=== PATIENT | male | born 1960 | race Two or more races ===

== ENCOUNTER 2020-11-01 21:07 | Inpatient (IN) | payer MEDICAID ==
[~2020-11-01] VITALS: Ht 170.2 cm; Wt 80.3 kg
[2020-11-01] MEDS ORDERED: NOREPINEPHRINE 8MG/250ML RTU 250 ML IV ONE (22:57)
[2020-11-01] MEDS: NOREPINEPHRINE 8 MG in IV NS 0.9% 242 ML IV PRN (23:00)
[2020-11-01 23:02] VITALS: BP 97/61
--- NOTE | 2020-11-01 23:06 | NUR ---
RECEIVED PT TRACH ON VENT FROM [employer]. PT HAS SHLY 6 TRACH. PLACED ON 840 VENT, AC 12, 450, 50%. ALARMS SET AND AUDIBLE. VENT PLUGGED INTO RED OUTLET. AMBU BAG AT BEDSIDE. CONTINUE TO MONITOR. Addendum: 11/01/20 at 2309 by BASSEM AGEE RT Amended: Links added.
[2020-11-01 23:15] VITALS: BP 125/72
[2020-11-01 23:30] VITALS: BP 110/71
[2020-11-01] MEDS ORDERED: Z GUARD REMEDY 2 OZ OINT TP PRN (23:30)
[2020-11-01] MEDS ORDERED: NOREPINEPHRINE 8 MG in IV NS 0.9% 242 ML IV PRN (23:30)
--- NOTE | 2020-11-01 23:30 | NUR ---
ELECTRICAL CONTRACTORPOLICY LOAN CALCULATOR NOTE: Received pt from [facility] via [employer] accompanied by 1 RN and 2 EMT. Transferred to bed and hooked up to monitors. Pt on SH#6 trach and mechanical ventilation AC 12, TV 450, O2 50%. Tolerating current settings well. No resp distress noted at this time. Pt obtunded, moves to localized pain. SR on tele monitor. Pt contracted w/ wounds. Wound pictures taken. GT site patent and clamped. Left internal jugular TLC in patent and flushed. Pt transferred from w/ Levo infusing at 0.1mcg/kg/min. Cedeno catheter in place, patent and draining urine via gravity. order desk caller, Ankush Ponce at bedside. No pain noted at this time. Med recon done by charge nurse. Safety measures in place. Will continue to monitor.
[2020-11-01 23:34] VITALS: BP 97/61
[2020-11-01 23:45] VITALS: BP 110/71
[2020-11-02] VITALS (96 sets, daily range): BP systolic 85–129; BP diastolic 49–82
--- NOTE | 2020-11-02 00:43 | NUR ---
TOW BAR DRIVER NOTE: No Ceftazadime available. Faxed order to RN Ornamental Ironworker Helper
[2020-11-02] MEDS ORDERED: MIDO10TA PEG (00:54)
[2020-11-02] MEDS ORDERED: ALBU2.5V38 NEB (00:54)
[2020-11-02] MEDS ORDERED: SODI650T PEG (00:54)
[2020-11-02] MEDS ORDERED: MUPI22OI2 TP (00:54)
[2020-11-02] MEDS ORDERED: LEVE500T9 PEG (00:54)
[2020-11-02] MEDS ORDERED: CINA30TA2 PEG (00:54)
[2020-11-02] MEDS ORDERED: FOLI0.8T2 PEG (00:54)
[2020-11-02] MEDS ORDERED: ZINC1CAP3 PEG (00:54)
[2020-11-02] MEDS ORDERED: CEFT1VIA55 IV (00:54)
[2020-11-02] MEDS ORDERED: [UNRECOGNIZED DRUG - CODE] IV/SQ (00:54)
[2020-11-02] MEDS ORDERED: GABA600T12 PEG (00:54)
[2020-11-02] MEDS ORDERED: ACET160E36 RC (00:54)
[2020-11-02] MEDS ORDERED: PANT40TA2 PEG (00:54)
[2020-11-02] MEDS ORDERED: LEVO112T5 GT (00:54)
[2020-11-02] MEDS ORDERED: ACET160E36 PEG (00:54)
[2020-11-02] MEDS ORDERED: MELA3TAB41 PEG (00:54)
[2020-11-02] MEDS ORDERED: MUPIROCIN OINT 2% 22 GM TUBE TP PRN (01:00)
[2020-11-02] MEDS ORDERED: ALBUTEROL FS 2.5 MG/3 ML VIAL.NEB NEB PRN (01:00)
[2020-11-02] MEDS ORDERED: CEFTAZIDIME 1 G VIAL ONE (01:20)
[2020-11-02] MEDS ORDERED: ACETAMINOPHEN 650 MG/20.3 ML UDC GT PRN (01:30)
[2020-11-02] MEDS: CEFTAZIDIME 1 G in IV D5W 50 ML IV SCH ×2 (01:35→20:17)
--- NOTE | 2020-11-02 01:40 | NUR ---
CONTINUOUS MINING MACHINE LODE MINER NOTE: RT titrated fio2 down to 40%. O2 stable, will cont to monitor.
[2020-11-02] MEDS ORDERED: VANCOMYCIN 1.25 GM in IV D5W 250 ML IV ONE (02:00)
[2020-11-02] MEDS ORDERED: VANCOMYCIN 1 GM in IV D5W 250 ML IV ONE (02:33)
[2020-11-02] MEDS ORDERED: VANCOMYCIN 1 GM VIAL ONE (02:40)
[2020-11-02 04:33] LABS: BASOPHILS # (AUTO) 0.1 /CMM (0.0-0.2); BASOPHILS % (AUTO) 0.3 % (0.0-2.0); HEMATOCRIT 25 % (39-51); HEMOGLOBIN 7.5 g/dL (13.5-17.5); LYMPHOCYTES # (AUTO) 1.5 /CMM (0.8-4.8); LYMPHOCYTES % (AUTO) 9.5 % (20.0-44.0); MEAN CORPUSCULAR HGB CONC 31 g/dl (31.0-36.0); MEAN CORPUSCULAR VOLUME 96 fL (80-96); MONOCYTES # (AUTO) 0.7 /CMM (0.1-1.30); MONOCYTES % (AUTO) 4.1 % (2.0-12.0); NEUTROPHILS # (AUTO) 12.2 /CMM (1.8-8.9); NEUTROPHILS % (AUTO) 77.1 % (43.0-81.0); PLATELET COUNT (AUTO) 256 /CMM (150-450); RED BLOOD CELL COUNT(AUTO) 2.57 MIL/uL (4.5-6.0); WHITE BLOOD COUNT (AUTO) 15.8 K/uL (4.3-11.0)
[2020-11-02 04:44] LABS: CALCIUM, SERUM 7.3 mg/dL (8.5-10.1); CREATININE 3.1 mg/dL (0.6-1.3); MAGNESIUM 2.4 mg/dL (1.8-2.4); POTASSIUM 3.5 mmol/L (3.5-5.1)
[2020-11-02 05:00] LABS: THYROID STIMULATING HORMONE 69.156 uIU/mL (0.358-3.74)
--- NOTE | 2020-11-02 05:14 | NUR ---
SUPERVISOR GREEN END DEPARTMENT NOTE: Sputum cx collected by RT. MRSA swab done. Both specimens sent to lab.
--- NOTE | 2020-11-02 06:06 | NUR ---
MANAGER COLLECTION NOTE: Urine collected and sent to lab
--- NOTE | 2020-11-02 07:10 | NUR ---
YEAST PUSHER Bedside report taken from [facility] nurse Ofelia SCHNEIDER. pt obtunded, eyes open, does not track or follow commands. pt w/d to pain in bue and ble. pt has trach to vent fio2 40 % tolerating well, spo2 100. pt has peg, npo at this time pending tf orders and nutrition consult. pt has calhoun, cloudy yellow urine, calhoun intact and draining. pt has wounds, noted. all lines traced. all drips verified. safety measures in place. will continue to monitor.
[2020-11-02] MEDS: LEVOTHYROXINE SODIUM 100 MCG TABLET GT SCH (07:42)
[2020-11-02] MEDS ORDERED: IV 1/2NS 1000 ML 1,000 ML IV PRN (08:00)
[2020-11-02] MEDS: ZINC SULFATE 220 MG CAPSULE GT SCH (08:10)
[2020-11-02] MEDS: VIT B CMPLX 3/FA/VIT C/BIOTIN 1 TAB TABLET PEG SCH (08:10)
[2020-11-02] MEDS: HEPARIN SODIUM, PORCINE 5000 UNITS/1 ML VIAL SQ SCH ×2 (08:11→20:24)
[2020-11-02] MEDS: CINACALCET HCL 30 MG TABLET GT SCH (08:12)
[2020-11-02] MEDS: LEVETIRACETAM SOL (5 ML) 100 MG/ML UDC GT SCH ×2 (08:12→20:17)
[2020-11-02] MEDS: PANTOPRAZOLE 40 MG/PACK PACK GT SCH (08:12)
[2020-11-02] MEDS: MIDODRINE HCL (5MG) 5 MG TABLET PEG SCH ×3 (08:12→16:25)
[2020-11-02] MEDS: GABAPENTIN 100 MG CAPSULE PEG SCH ×3 (08:13→16:25)
--- NOTE | 2020-11-02 08:45 | NUR ---
QUALITATIVE RESEARCHER US tech at bedside doing US of kidneys, difficult and unable to see d/t pt extreme contraction in ble. study completed with assistance.
[2020-11-02 08:56] LABS: BILIRUBIN,URINE NEGATIVE (NEGATIVE); COLOR,URINE YELLOW (YELLOW); LEUKOCYTE ESTERASE ,URINE LARGE (NEGATIVE); NITRITE, URINE NEGATIVE (NEGATIVE); PROTEIN,URINE TRACE mg/dl (NEGATIVE); UGLUCOSE NEGATIVE (NEGATIVE); UROBILINOGEN,URINE 0.2 EU/dL (0.2)
--- NOTE | 2020-11-02 09:00 | NUR ---
BI DATA ARCHITECT Skin Nurse at bedside assessing pt and wounds. new orders pending. calhoun irrigated using sterile technique per md order.
[2020-11-02 09:05] LABS: RBC,URINE F /HPF (0-2)
[2020-11-02 09:06] LABS: BACTERIA,URINE Few /HPF (None Seen); SQUAMOUS EPITHELIAL CELL,UR Rare /HPF (None Seen); WBC,URINE 51-80 /HPF (0-3)
--- NOTE | 2020-11-02 09:11 | NUR ---
WOUND CARE CONSULT: PT PRESENTS WITH INCONTINENCE ASSOCIATED SKIN DAMAGE OVER PREVIOUS SACRAL SCARRING. SCARRING ALSO NOTED TO BUTTOCKS, BACK,KNEES, HEELS AND ANKLES, ALL PRESENT ON ADMISSION. RECOMMENDATIONS MADE FOR SKIN PROTECTION. DISCUSSED WITH NURSING STAFF. 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 FIRST STEP LOW AIRLOSS MATTRESS IS ON ORDER. MD IN AGREEMENT WITH PLAN OF CARE. Addendum: 11/02/20 at 0913 by TASHA MATOS WNDNU Amended: Links added.
[2020-11-02 09:35] LABS: CREATININE, URINE 25.8 MG/DL (30.0-125.0); URINE TOTAL PROTEIN 51.6 mg/dL (0-11.9)
[2020-11-02 09:55] LABS: EOSINOPHIL,URINE Few
[2020-11-02 12:15] LABS: BASOPHILS # (AUTO) 0.1 /CMM (0.0-0.2); BASOPHILS % (AUTO) 0.5 % (0.0-2.0); EOSINOPHILS % (AUTO) 9.6 % (0.0-6.0); HEMATOCRIT 25 % (39-51); HEMOGLOBIN 7.7 g/dL (13.5-17.5); LYMPHOCYTES # (AUTO) 1.8 /CMM (0.8-4.8); LYMPHOCYTES % (AUTO) 12.3 % (20.0-44.0); MEAN CORPUSCULAR HGB CONC 31 g/dl (31.0-36.0); MEAN CORPUSCULAR VOLUME 93 fL (80-96); MONOCYTES # (AUTO) 0.7 /CMM (0.1-1.30); MONOCYTES % (AUTO) 5.1 % (2.0-12.0); NEUTROPHILS # (AUTO) 10.5 /CMM (1.8-8.9); NEUTROPHILS % (AUTO) 72.5 % (43.0-81.0); PLATELET COUNT (AUTO) 263 /CMM (150-450); RED BLOOD CELL COUNT(AUTO) 2.65 MIL/uL (4.5-6.0); WHITE BLOOD COUNT (AUTO) 14.5 K/uL (4.3-11.0)
[2020-11-02 12:38] LABS: CALCIUM, SERUM 7.4 mg/dL (8.5-10.1); CREATININE 2.9 mg/dL (0.6-1.3); POTASSIUM 3.6 mmol/L (3.5-5.1)
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
[2020-11-02] MEDS ORDERED: IV D5W 1,000 ML IV ONE (14:00)
[2020-11-02] MEDS: IV D5W 1,000 ML IV PRN (16:22)
--- NOTE | 2020-11-02 16:32 | NUR ---
ANESTHESIOLOGIST/PHYSICIAN Pt bathed and cleaned. linen change done. skin check done no new wounds noted. wound care done per md order. pt tolerated well. tube feeding started at 15ml/hr, 300 ml h20 flush initiated per md order. pt tolerated well. vitals stable. will continue to monitor.
--- NOTE | 2020-11-02 16:54 | NUR ---
MOP MAN Bedside report given to pm nurse Marcos SCHNEIDER. pt asleep, easily arousable. pt has trach to vent, tolerating well. pt clean and dry. all lines traced. all drips verified. vitals stable. safety measures in place. no signs of acute distress at this time.
[2020-11-02 18:29] LABS: CALCIUM, SERUM 7.3 mg/dL (8.5-10.1); CREATININE 2.9 mg/dL (0.6-1.3); POTASSIUM 3.5 mmol/L (3.5-5.1)
--- NOTE | 2020-11-02 18:32 | NUR ---
POSTAL SERVICE WINDOW CLERK NOTES Patient in bed resting comfortably in moderate high back rest, Obtunded and contracted, trach to vent, tolerating current setting sating 100%, IV access on Left IJ, On levophed @0.04 mcg/kg/min, D5W running @100ml/hr. On Gtube feeding twocal hn liquid @15ml/hr, tolerating well, Cedeno catheter in place draining via gravity with clear yellow output, safety measures in place, bed in lowest locked position with side rails up x2. call light within reach, will endorse to car shifter nurse for meryl.
[2020-11-02] MEDS: TWOCAL HN 1,000 ML LIQUID GT PRN (19:00)
--- NOTE | 2020-11-02 19:11 | NUR ---
RECEIVED PT ON BED AWAKE OPEN EYES BUT NOT TRACKING OR FOLLOWING ANY COMMANDS ON TRACH/VENT SETTING PER MD FIO2 40% SPO2 98%, PT ON TELE MONITOR WITH READING SINUS BRANDON 60'S, PT HAVE LEFT IJ 3L CATHETER WITH ONGOING D5W AT 100ML/HR AND LEVOPHED @ 0.04 MCG/KG/MIN INFUSING WELL DRESSING DRY CLEAN AND INTACT, PT HAVE ZARATE CATHETER WITH YELLOW URINE DRAINING VIA GRAVITY, PT HAVE GTUBE ON PLACE, RESIDUAL 45ML, PLACEMENT WAS CHECKED AND VERIFIED, WITH FEEDING OF TWOCAL HN @ 15ML/HR TOLERATING WELL, BED AT LOWEST POSITION AND LOCKED SIDE RAILS UP X2 WILL CONT TO MONITOR
--- NOTE | 2020-11-02 20:25 | NUR ---
REPORTED TO DEDRA CASTILLO NP THAT PT HGB IS 7.7 HCT OF 25, AND PT HAVE AN HEPARIN ORDER Q12H AND STARTED THIS MORNING, HE SAID TO GIVE IT IF THERE IS NO SIGN OF BLEEDING, NOTED AND CARRIED OUT
[2020-11-02] MEDS: LINEZOLID RTU BAG 600 MG in PREMIX 1 EA IV SCH (21:37)
[2020-11-02] MEDS: MEROPENEM 500 MG in IV NS 0.9% 50 ML IV SCH (21:37)
[2020-11-03] VITALS (83 sets, daily range): BP systolic 84–128; BP diastolic 44–88
--- NOTE | 2020-11-03 00:31 | NUR ---
PT ON BED SLEEPING INTERMITTENTLY STILL ON TRACH/VENT SETTING PER MD FIO2 40% SPO2 99% NOS IGN OF ANY DISTRESS, STILL ON LEVOPHED 0.04 MCG/KG/MIN SBP MAINTAIN ON 100'S WILL CONT TO MONITOR
[2020-11-03] MEDS ORDERED: VANCOMYCIN 0.75 GM in IV D5W 250 ML IV SCH (03:00)
[2020-11-03] MEDS: IV D5W 1,000 ML IV PRN ×3 (03:00→22:30)
[2020-11-03] MEDS: NOREPINEPHRINE 8 MG in IV NS 0.9% 242 ML IV PRN (03:00)
[2020-11-03 04:14] LABS: BASOPHILS # (AUTO) 0.1 /CMM (0.0-0.2); BASOPHILS % (AUTO) 0.6 % (0.0-2.0); EOSINOPHILS % (AUTO) 7.6 % (0.0-6.0); HEMATOCRIT 24 % (39-51); HEMOGLOBIN 7.4 g/dL (13.5-17.5); LYMPHOCYTES # (AUTO) 1.9 /CMM (0.8-4.8); LYMPHOCYTES % (AUTO) 13.8 % (20.0-44.0); MEAN CORPUSCULAR HGB CONC 31 g/dl (31.0-36.0); MEAN CORPUSCULAR VOLUME 94 fL (80-96); MONOCYTES # (AUTO) 0.8 /CMM (0.1-1.30); MONOCYTES % (AUTO) 5.6 % (2.0-12.0); NEUTROPHILS # (AUTO) 9.9 /CMM (1.8-8.9); NEUTROPHILS % (AUTO) 72.4 % (43.0-81.0); PLATELET COUNT (AUTO) 240 /CMM (150-450); RED BLOOD CELL COUNT(AUTO) 2.53 MIL/uL (4.5-6.0); WHITE BLOOD COUNT (AUTO) 13.6 K/uL (4.3-11.0)
[2020-11-03 04:27] LABS: ALBUMIN 2.1 g/dL (3.4-5.0); BILIRUBIN,TOTAL 0.3 mg/dL (0.2-1.0); CALCIUM, SERUM 7.3 mg/dL (8.5-10.1); CREATININE 2.9 mg/dL (0.6-1.3); PHOSPHORUS 3.6 mg/dL (2.5-4.9); POTASSIUM 3.2 mmol/L (3.5-5.1); TOTAL PROTEIN, SERUM 5.7 g/dL (6.4-8.2)
--- NOTE | 2020-11-03 05:24 | NUR ---
REPORTED TO LION CASTILLO TOOL DISPATCHER ABOUT THE CRITICAL VALUE OF Na-157 Cl-125 BUN-96 WITH NO NEW ORDER
--- NOTE | 2020-11-03 06:46 | NUR ---
PT ON BED ASLEEP EASY TO WAKE UP BUT STILL NOT TRACKING OR FOLLOW COMMANDS, STILL ON TRACH/VENT SETTING PER MD FIO2 40% SPO2 100% NO RESPIRATORY DISTRESS NOTED NO PAIN NOTED, ALL NEEDS ATTENDED STILL NEEDED LEVOPHED @ 0.04 MCG/KG/MIN SBP @ 100'S, NO SIGNIFICANT CHANGES ON CONDITION NOTED BED ON LOWEST POSITION AND LOCKED SIDE RAILS UP WILL ENDORSED TO AM SHIFT NURSE
--- NOTE | 2020-11-03 07:29 | NUR ---
RN OPENING NOTES RECEIVED PATIENT AWAKE BUT EYES NOT TRACKING AND DOESN'T FOLLOW COMMANDS. TRACH CONNECTED TO MECHVENT WITH SETTINGS AC 12 TV 470 FIO2 40% PEEP 0. SR 84 ON TELE MONITOR. G TUBE TO TWO APOLONIA AT 30 ML/HR. LEFT IJ CENTRAL CATHETER WITH D5W AT 100ML/HR, AND LEVO AT 0.04 MCG/KG/HR. ZARATE DRAINING TO GRAVITY. SAFETY CHECKS IN PLACE. WILL CONTINUE TO MONITOR.
[2020-11-03] MEDS: LEVOTHYROXINE SODIUM 100 MCG TABLET GT SCH (07:56)
[2020-11-03] MEDS: POTASSIUM CL. PREMIX PERIPHER. 50 ML IV SCH ×4 (07:56→10:26)
[2020-11-03] MEDS: GABAPENTIN 100 MG CAPSULE PEG SCH ×3 (08:31→16:14)
[2020-11-03] MEDS: LEVETIRACETAM SOL (5 ML) 100 MG/ML UDC GT SCH ×2 (08:32→21:16)
[2020-11-03] MEDS: MIDODRINE HCL (5MG) 5 MG TABLET PEG SCH ×3 (08:32→16:14)
[2020-11-03] MEDS: ZINC SULFATE 220 MG CAPSULE GT SCH (08:32)
[2020-11-03] MEDS: PANTOPRAZOLE 40 MG/PACK PACK GT SCH (08:32)
[2020-11-03] MEDS: VIT B CMPLX 3/FA/VIT C/BIOTIN 1 TAB TABLET PEG SCH (08:32)
[2020-11-03] MEDS: CINACALCET HCL 30 MG TABLET GT SCH (08:32)
[2020-11-03] MEDS: MEROPENEM 500 MG in IV NS 0.9% 50 ML IV SCH ×2 (08:33→21:16)
[2020-11-03] MEDS: HEPARIN SODIUM, PORCINE 5000 UNITS/1 ML VIAL SQ SCH ×2 (08:38→21:19)
[2020-11-03] MEDS: LINEZOLID RTU BAG 600 MG in PREMIX 1 EA IV SCH ×2 (09:25→21:16)
--- NOTE | 2020-11-03 11:30 | NUR ---
RN NOTE BLOOD CULTURE AND URINE CULTURE RESULTS REQUESTED FROM [facility] VIA [facility].
[2020-11-03] MEDS: TWOCAL HN 1,000 ML LIQUID GT PRN (17:33)
--- NOTE | 2020-11-03 19:05 | NUR ---
RECEIVED PT ON BED AWAKE OPEN EYES BUT NOT TRACKING OR FOLLOWING ANY COMMANDS ON TRACH/VENT SETTING PER MD FIO2 40% SPO2 98%, PT ON TELE MONITOR WITH READING SINUS RHYTHM 70'S, PT HAVE LEFT IJ 3L CATHETER WITH ONGOING D5W AT 100ML/HR INFUSING WELL DRESSING DRY CLEAN AND INTACT, PT HAVE ZARATE CATHETER WITH YELLOW URINE DRAINING VIA GRAVITY, PT HAVE GTUBE ON PLACE, RESIDUAL 45ML, PLACEMENT WAS CHECKED AND VERIFIED, WITH FEEDING OF TWOCAL HN @ 35ML/HR TOLERATING WELL, BED AT LOWEST POSITION AND LOCKED SIDE RAILS UP X2 WILL CONT TO MONITOR
--- NOTE | 2020-11-03 19:11 | NUR ---
RN CLOSING NOTES NO SIGNIFICANT CHANGE IN PATIENT'S CONDITION. EYES STILL NOT TRACKING, NON VERBAL AND DOESN'T FOLLOW COMMANDS. TRACH CONNECTED TO MECHVENT WITH SAME SETTINGS OF AC 12 TV 470 FIO2 40% PEEP 0. SR 77 ON TELE MONITOR. G TUBE TO TWO APOLONIA AT 35 ML/HR. LEFT IJ CENTRAL CATHETER WITH D5W AT 100ML/HR. ZARATE DRAINED 1,350MLS. FLEXI-SEAL INSERTED DUE TO LOOSE STOOLS. SAFETY CHECKS IN PLACE. ENDORSED TO NIGHT RN FOR CONTINUITY OF CARE.
--- NOTE | 2020-11-03 20:20 | NUR ---
RECEIVED PT FROM [facility] BED PT IS UNCONSCIOUS NOT RESPONDING TO ANY STIMULI, PUPIL IS REACTIVE TO LIGHT ON O2 VIA NC 2L SPO2 100% HR 90S, HOOKED TO MONITOR WITH READING SINUS RHYTHM BP ON NORMAL RANGE, NO TREMORS OR JERKING NOTED, TEETH CLENCHING NOTED, PT HAVE RAC #20 PATENT AND FLUSHED, DR PAULA CAME AND SEE PATIENT, AT BEDSIDE,BED ON LOWEST POSITION AND LOCKED SIDE RAILS UP X2 CALL LIGHT WITHIN REACH WILL CONT TO MONITOR Addendum: 11/04/20 at 0640 by MELISSA ORDONEZ RN WRONG PATIENT
--- NOTE | 2020-11-03 21:15 | NUR ---
PT IS STILL UNCONSCIOUS V/S SIGNS STABLE SPO2 100% ON 2L O2 VIA NC, SEND PATIENT TO RADIOLOGY FOR CT SCAN WITH RN AT BEDSIDE TO MONITOR Addendum: 11/04/20 at 0641 by MELISSA ORDONEZ RN WRONG PATIENT
--- NOTE | 2020-11-03 21:25 | NUR ---
PT GAIN CONSCIOUSNESS, SHE GET AWAKE AA/O X4 VERBALIZED, PER PT SHE HEAR THE CONVERSATION BETWEEN THE DOCTORS AND THE STAFF AT BEDSIDE, BUT SHE CANNOT MOVE OR OPEN HER EYES, V/S SIGNS IS STABLE WITH SPO2 100% HR 89, BP 107/67, WILL CONTINUE TO MONITOR Addendum: 11/04/20 at 0639 by MELISSA ORDONEZ RN WRONG PATIENT
[2020-11-04] VITALS (83 sets, daily range): BP systolic 81–137; BP diastolic 38–81
[2020-11-04 04:25] LABS: BASOPHILS # (AUTO) 0.1 /CMM (0.0-0.2); BASOPHILS % (AUTO) 0.6 % (0.0-2.0); EOSINOPHILS % (AUTO) 6.6 % (0.0-6.0); HEMATOCRIT 21 % (39-51); LYMPHOCYTES # (AUTO) 1.6 /CMM (0.8-4.8); LYMPHOCYTES % (AUTO) 11.7 % (20.0-44.0); MEAN CORPUSCULAR HGB CONC 32 g/dl (31.0-36.0); MEAN CORPUSCULAR VOLUME 92 fL (80-96); MONOCYTES # (AUTO) 0.7 /CMM (0.1-1.30); MONOCYTES % (AUTO) 5.6 % (2.0-12.0); NEUTROPHILS % (AUTO) 75.5 % (43.0-81.0); PLATELET COUNT (AUTO) 219 /CMM (150-450); RED BLOOD CELL COUNT(AUTO) 2.31 MIL/uL (4.5-6.0); WHITE BLOOD COUNT (AUTO) 13.3 K/uL (4.3-11.0)
[2020-11-04 04:47] LABS: CALCIUM, SERUM 6.7 mg/dL (8.5-10.1); CREATININE 2.5 mg/dL (0.6-1.3); MAGNESIUM 1.8 mg/dL (1.8-2.4); PHOSPHORUS 4.1 mg/dL (2.5-4.9); POTASSIUM 3.7 mmol/L (3.5-5.1)
[2020-11-04 04:55] LABS: HEMOGLOBIN 6.8 g/dL (13.5-17.5)
[2020-11-04 05:07] LABS: PTH, INTACT 18 pg/mL (15-65)
--- NOTE | 2020-11-04 05:10 | NUR ---
RN NOTES RECEIVED A CALL FROM LAB HGB 6.8 AND HCT 21. INFORMED DEPUTY CHIEF EXECUTIVE ANNA SEYMOUR WAITING FOR THE ORDER
[2020-11-04] MEDS: NOREPINEPHRINE 8 MG in IV NS 0.9% 242 ML IV PRN (05:20)
--- NOTE | 2020-11-04 05:20 | NUR ---
RN NOTES RE-STARTED LEVOPHED DUE TO CONTINUOUSLY LOW SBP TO <90 MMHG. LEVO WILL TITRATE PROTOCOL ORDER
[2020-11-04 05:48] LABS: BAND % (MANUAL) 3 % (0.0-5.0); EOSINOPHILS % (MANUAL) 7 % (0-4); LYMPHOCYTES % (MANUAL) 4 % (16-48); METAMYELOCYTES % 2 % (0-0); MYELOCYTES % 1 % (0-0); NEUTROPHILS % (MANUAL) 82 (42-76); REACTIVE LYMPHOCYTES 1 % (0-0)
--- NOTE | 2020-11-04 06:54 | NUR ---
RN NOTES PATIENT REMAINED ON TRACH AND VENT SETTING THE SAME. NO SIGNIFICANT CHANGES EXCEPT HYPOTENSION. MEDICINE TOELRATED WELL. CONTINUE ON LEVOPHED WILL TITRATED PROTOCOL ORDER. INCONTINENT CARE PROVIDED, FLEXISEAL IN PLACED. WITH GOOD URINE OUTPUT.. KEPT PT CLEAN AND COMFORTABLE IN BED. WILL ENDORSED CONTINUITY OF CARE TO AM NURSE.
--- NOTE | 2020-11-04 07:00 | NUR ---
RN NOTES ENDORSED TO AM SHIFT TO FOLLOW UP HGB 6.8 TO MD .
--- NOTE | 2020-11-04 07:12 | NUR ---
RN OPENING NOTES RECEIVED PATIENT WITH EYES OPEN BUT NOT FOLLOWING COMMANDS. TRACH CONNECTED TO MECENT WITH SETTINGS AC 12 TV 470 FIO2 40% PEEP 0. SR 80 ON TELE MONITOR. LEFT IJ CENTRAL LINE WITH D5W 100ML/HR AND LEVO AT 0.04MCG/KG/HR. ZARATE AND FLEXISEAL DRAINING BY GRAVITY. SAFETY CHECKS IN PLACE. WILL CONTINUE TO MONITOR.
[2020-11-04 08:06] LABS: COMPLEMENT C3, SERUM 95 mg/dL (82-167); COMPLEMENT C4, SERUM 34 mg/dL (12-38)
[2020-11-04] MEDS: LEVETIRACETAM SOL (5 ML) 100 MG/ML UDC GT SCH ×2 (08:23→21:34)
[2020-11-04] MEDS: CINACALCET HCL 30 MG TABLET GT SCH (08:24)
[2020-11-04] MEDS: LEVOTHYROXINE SODIUM 100 MCG TABLET GT SCH (08:24)
[2020-11-04] MEDS: ZINC SULFATE 220 MG CAPSULE GT SCH (08:24)
[2020-11-04] MEDS: VIT B CMPLX 3/FA/VIT C/BIOTIN 1 TAB TABLET PEG SCH (08:24)
[2020-11-04] MEDS: MIDODRINE HCL (5MG) 5 MG TABLET PEG SCH ×4 (08:24→17:05)
[2020-11-04] MEDS: PANTOPRAZOLE 40 MG/PACK PACK GT SCH (08:24)
[2020-11-04] MEDS: GABAPENTIN 100 MG CAPSULE PEG SCH ×3 (08:24→17:04)
[2020-11-04] MEDS: HEPARIN SODIUM, PORCINE 5000 UNITS/1 ML VIAL SQ SCH ×2 (08:25→21:38)
[2020-11-04] MEDS: MEROPENEM 500 MG in IV NS 0.9% 50 ML IV SCH ×2 (08:25→21:37)
[2020-11-04] MEDS: IV D5W 1,000 ML IV PRN (08:57)
[2020-11-04] MEDS: LINEZOLID RTU BAG 600 MG in PREMIX 1 EA IV SCH ×2 (09:16→21:37)
--- NOTE | 2020-11-04 09:30 | NUR ---
RN NOTE 0900 DOSE OF MIDODRINE WAS ADMINISTERED BUT UNABLE TO BE EDITED AT [facility] TO SAY ITS GIVEN.
[2020-11-04 11:08] LABS: *ANA ANTI-CENTROMERE B AB <0.2 AI (0.0-0.9); *ANA ANTI-DNA(DS) AB, QN 9 IU/mL (0-9); *ANA ANTI-JO-1 <0.2 AI (0.0-0.9); *ANA ANTICHROMATIN ANTIBODY <0.2 AI (0.0-0.9); *ANA RNP ANTIBODIES <0.2 AI (0.0-0.9); *ANA SJOGREN'S ANTI-SS-A <0.2 AI (0.0-0.9); *ANA SJOGREN'S ANTI-SS-B <0.2 AI (0.0-0.9); *ANAANTI-SCLERODERMA-70 AB <0.2 AI (0.0-0.9); *ANASMITH AB <0.2 AI (0.0-0.9); *SPE ALBUMIN 2.6 g/dL (2.9-4.4); *SPE ALPHA-1-GLOBULIN 0.2 g/dL (0.0-0.4); *SPE ALPHA-2-GLOBULIN 0.8 g/dL (0.4-1.0); *SPE BETA GLOBULIN 0.6 g/dL (0.7-1.3); *SPE GLOBULIN, TOTAL 2.5 g/dL (2.2-3.9); *SPE M-SPIKE Not Observed g/dL (Not Observed); *SPEGAMMA GLOBULIN 0.9 g/dL (0.4-1.8)
[2020-11-04] MEDS: SOD FERRIC GLUC 125 MG in IV NS 0.9% 100 ML IV SCH (15:32)
--- NOTE | 2020-11-04 16:00 | NUR ---
RN NOTE PATIENT RECEIVED ONE UNIT OF PRBC. NO ADVERSE REACTIONS NOTED DURING THE TRANSFUSION.
--- NOTE | 2020-11-04 16:30 | NUR ---
RN NOTE NG FLUSHES REDUCED TO 200ML Q6H, D/C ZARATE IRRIGATION, AND IVF CHANGED TO N/S.
[2020-11-04] MEDS: IV NS 0.9% 1,000 ML IV PRN (17:06)
[2020-11-04] MEDS: TWOCAL HN 1,000 ML LIQUID GT PRN (17:07)
--- NOTE | 2020-11-04 18:42 | NUR ---
RN CLOSING NOTES PATIENT REMAINS NON COMMUNICATIVE. TRACH CONNECTED TO MECENT WITH SAME SETTINGS AC 12 TV 470 FIO2 40% PEEP 0. SR 78 ON TELE MONITOR. LEFT IJ CENTRAL LINE WITH NS 100ML/HR AND LEVO AT 0.04MCG/KG/HR. ZARATE DRAINED 2600MLS AND FLEXISEAL DRAINED 200MLS THIS SHIFT. SAFETY CHECKS IN PLACE. WILL ENDORSE TO NIGHT RN FOR CONTINUITY OF CARE..
--- NOTE | 2020-11-04 19:30 | NUR ---
RN NOTES RECEIVED PATIENT EYES OPEN , NON VERBAL. NO T FOLLOWING COMMAND. WITH TRACH AND VENT TOLERATED WELL. SR ON MONITOR. HR ON 70S. WITH GTF 2 APOLONIA HN @ 35 ML.HR WITH H20 FLUSHED 200 ML/HR TOLERATED WELL. PATENCY CHECK WITH GURGLING SOUND. IV SITE ON LIJ TLC INTACT AND PATENT WITH NS @ 100 ML.HR AND LEVOPHED @ 0.04 MCG/KG/MIN WILL TITRATED PROTOCOL ORDER. PATIENT HAS ZARATE CATH AND FLEXISEAL DRAINIGN WELL VIA GRAVITY. KEPT PT CLEAN AND COMFORTABLE IN BED. WILL CONTINUE TO MONITOR.
[2020-11-05] VITALS (85 sets, daily range): BP systolic 89–127; BP diastolic 55–90
[2020-11-05] MEDS: IV NS 0.9% 1,000 ML IV PRN (03:26)
[2020-11-05] MEDS ORDERED: IV NS 0.9% 250 ML IV PRN (04:00)
[2020-11-05 04:24] LABS: BASOPHILS # (AUTO) 0.1 /CMM (0.0-0.2); BASOPHILS % (AUTO) 0.5 % (0.0-2.0); EOSINOPHILS % (AUTO) 5.2 % (0.0-6.0); HEMATOCRIT 26 % (39-51); HEMOGLOBIN 8.4 g/dL (13.5-17.5); LYMPHOCYTES # (AUTO) 1.5 /CMM (0.8-4.8); LYMPHOCYTES % (AUTO) 10.5 % (20.0-44.0); MEAN CORPUSCULAR HGB CONC 33 g/dl (31.0-36.0); MEAN CORPUSCULAR VOLUME 92 fL (80-96); MONOCYTES # (AUTO) 0.9 /CMM (0.1-1.30); MONOCYTES % (AUTO) 6.1 % (2.0-12.0); NEUTROPHILS # (AUTO) 11.5 /CMM (1.8-8.9); NEUTROPHILS % (AUTO) 77.7 % (43.0-81.0); PLATELET COUNT (AUTO) 256 /CMM (150-450); RED BLOOD CELL COUNT(AUTO) 2.81 MIL/uL (4.5-6.0); WHITE BLOOD COUNT (AUTO) 14.7 K/uL (4.3-11.0)
[2020-11-05 04:44] LABS: CALCIUM, SERUM 6.8 mg/dL (8.5-10.1); CREATININE 2.4 mg/dL (0.6-1.3); MAGNESIUM 1.9 mg/dL (1.8-2.4); PHOSPHORUS 3.8 mg/dL (2.5-4.9); POTASSIUM 3.7 mmol/L (3.5-5.1)
[2020-11-05] MEDS: NOREPINEPHRINE 8 MG in IV NS 0.9% 242 ML IV PRN (05:02)
[2020-11-05 05:26] LABS: BAND % (MANUAL) 2 % (0.0-5.0); EOSINOPHILS % (MANUAL) 4 % (0-4); LYMPHOCYTES % (MANUAL) 9 % (16-48); METAMYELOCYTES % 1 % (0-0); MONOCYTES % (MANUAL) 1 % (0-11.0); MYELOCYTES % 1 % (0-0); NEUTROPHILS % (MANUAL) 82 (42-76)
--- NOTE | 2020-11-05 07:00 | NUR ---
RN NOTES NO SIGNIFICANT CHANGES THROUGHOUT THE SHIFT. TACH AND VENT SETTING TOLERATED WELL. AFEBRILE. VSS. NSR ON MONITOR. IVF ONGOING CONTINUE ON LEVOPHED ON LOWER DOSE 0.02 MCG/KG/MIN. IV SITE INTACT AND PATENT. GTF PATENT. ZARATE CATH AND FLEXISEAL INTACT AND PATENT. KEPT PT CLEAN AND COMFORTABLE IN BED. ENDORSE CONTINUITY OF CARE TO AM NURSE.
[2020-11-05] MEDS: LEVOTHYROXINE SODIUM 100 MCG TABLET GT SCH (08:30)
--- NOTE | 2020-11-05 08:43 | NUR ---
curriculum writer. received the pt obtunded. trach to vent connected. contracted. trach aneudy#6,ac 12,tv 470,fio2 40%sat 98%. no acute distress noted. radiology practitioner assistant showing nsrgt feeding tolerated well. fc patent. urine draining. flexa seal intact. hob elevated. will continue to monitor vitals.
[2020-11-05] MEDS: MEROPENEM 500 MG in IV NS 0.9% 50 ML IV SCH ×2 (09:43→21:10)
[2020-11-05] MEDS: GABAPENTIN 100 MG CAPSULE PEG SCH ×3 (09:50→17:00)
[2020-11-05] MEDS: CINACALCET HCL 30 MG TABLET GT SCH (09:50)
[2020-11-05] MEDS: LINEZOLID RTU BAG 600 MG in PREMIX 1 EA IV SCH ×2 (09:50→21:45)
[2020-11-05] MEDS: LEVETIRACETAM SOL (5 ML) 100 MG/ML UDC GT SCH ×2 (09:50→21:46)
[2020-11-05] MEDS: HEPARIN SODIUM, PORCINE 5000 UNITS/1 ML VIAL SQ SCH ×2 (09:52→21:53)
[2020-11-05] MEDS: MIDODRINE HCL (5MG) 5 MG TABLET PEG SCH ×3 (09:53→17:00)
[2020-11-05] MEDS: VIT B CMPLX 3/FA/VIT C/BIOTIN 1 TAB TABLET PEG SCH (09:55)
[2020-11-05] MEDS: PANTOPRAZOLE 40 MG/PACK PACK GT SCH (09:55)
[2020-11-05] MEDS: ZINC SULFATE 220 MG CAPSULE GT SCH (09:57)
[2020-11-05] MEDS: HYDROCORTISONE SOD SUCCINATE 100 MG/2 ML VIAL IV SCH ×2 (13:12→21:45)
[2020-11-05] MEDS: SOD FERRIC GLUC 125 MG in IV NS 0.9% 100 ML IV SCH (15:06)
--- NOTE | 2020-11-05 18:50 | NUR ---
RN CLOSING NOTES NO SIGNIFICANT CHANGES THROUGHOUT THE SHIFT. VENT SETTING TOLERATED WELL. NSR ON TELE MONITOR. ON LEVOPHED @0.01MCG/KG/MIN. IV SITES INTACT AND PATENT. ZARATE CATH IN PLACE AND FLEXISEAL REINSERTED. KEPT CLEAN AND COMFORTABLE. ALL DUE MEDS GIVEN. WILL ENDORSE TO NIGHT RN FOR PREET.
--- NOTE | 2020-11-05 19:47 | NUR ---
RT Pt received orally intubated on mechanical ventilation with noted settings. Vent is plugged into red outlet with BVM by bedside. Equal bilateral breath sounds and chest rise noted. No SOB or respiratory distress noted. Addendum: 11/05/20 at 2035 by CHELY ZELAYA RT Amended: Links added.
[2020-11-05] MEDS: TWOCAL HN 1,000 ML LIQUID GT PRN (22:00)
[2020-11-06] VITALS (40 sets, daily range): BP systolic 91–138; BP diastolic 54–83
[2020-11-06] MEDS: HYDROCORTISONE SOD SUCCINATE 100 MG/2 ML VIAL IV SCH ×3 (04:44→21:23)
[2020-11-06 05:00] LABS: BASOPHILS % (AUTO) 0.1 % (0.0-2.0); EOSINOPHILS % (AUTO) 0.3 % (0.0-6.0); HEMATOCRIT 27 % (39-51); HEMOGLOBIN 8.5 g/dL (13.5-17.5); LYMPHOCYTES # (AUTO) 1.3 /CMM (0.8-4.8); LYMPHOCYTES % (AUTO) 6.6 % (20.0-44.0); MEAN CORPUSCULAR HGB CONC 32 g/dl (31.0-36.0); MEAN CORPUSCULAR VOLUME 92 fL (80-96); MONOCYTES # (AUTO) 0.4 /CMM (0.1-1.30); MONOCYTES % (AUTO) 2.2 % (2.0-12.0); NEUTROPHILS # (AUTO) 18.2 /CMM (1.8-8.9); NEUTROPHILS % (AUTO) 90.8 % (43.0-81.0); PLATELET COUNT (AUTO) 241 /CMM (150-450); WHITE BLOOD COUNT (AUTO) 20.1 K/uL (4.3-11.0)
[2020-11-06 05:12] LABS: CALCIUM, SERUM 6.6 mg/dL (8.5-10.1); CREATININE 2.1 mg/dL (0.6-1.3); MAGNESIUM 1.8 mg/dL (1.8-2.4); PHOSPHORUS 3.4 mg/dL (2.5-4.9); POTASSIUM 4.1 mmol/L (3.5-5.1)
[2020-11-06] MEDS: LEVOTHYROXINE SODIUM 100 MCG TABLET GT SCH (07:50)
[2020-11-06] MEDS: VIT B CMPLX 3/FA/VIT C/BIOTIN 1 TAB TABLET PEG SCH (08:11)
[2020-11-06] MEDS: LEVETIRACETAM SOL (5 ML) 100 MG/ML UDC GT SCH ×2 (08:11→21:34)
[2020-11-06] MEDS: CINACALCET HCL 30 MG TABLET GT SCH (08:11)
[2020-11-06] MEDS: GABAPENTIN 100 MG CAPSULE PEG SCH ×3 (08:11→16:34)
[2020-11-06] MEDS: PANTOPRAZOLE 40 MG/PACK PACK GT SCH (08:11)
[2020-11-06] MEDS: MIDODRINE HCL (5MG) 5 MG TABLET PEG SCH ×3 (08:11→16:34)
[2020-11-06] MEDS: ZINC SULFATE 220 MG CAPSULE GT SCH (08:11)
[2020-11-06] MEDS: HEPARIN SODIUM, PORCINE 5000 UNITS/1 ML VIAL SQ SCH ×2 (08:14→21:35)
[2020-11-06] MEDS: IV 1/2NS 1000 ML 1,000 ML IV PRN ×2 (08:23→21:46)
[2020-11-06] MEDS: MEROPENEM 500 MG in IV NS 0.9% 50 ML IV SCH ×2 (08:26→21:33)
[2020-11-06] MEDS: LINEZOLID RTU BAG 600 MG in PREMIX 1 EA IV SCH ×2 (08:55→21:33)
--- NOTE | 2020-11-06 10:29 | NUR ---
RN NOTE 0715: Recieved patient with trache to vent, tolerated settings, no respiratory distress noted at this time. Nored with foul odor secretions. With GT intact, feeding tolerated.SR on the monitor. Flexiseal intact, noted with mile leakage. LIJ TLC intact, on IVF infusing as ordered. Remained off pressors. 0900: S/E by Dr. Lyons, with order of labs in am. 1000: No any significant changes noted at this time. Kept clean, warm and dry.
[2020-11-06] MEDS: SOD FERRIC GLUC 125 MG in IV NS 0.9% 100 ML IV SCH (14:33)
--- NOTE | 2020-11-06 18:07 | NUR ---
RN NOTE No any significant changes noted. Remained afebrile. SBP >90's. Kept clean, warm and dry. Needs attended. Still noted with leakage on flexiseal at times, cleaned patient as tolerated. Will endorse to next shift.
--- NOTE | 2020-11-06 18:07 | NUR ---
RT END OF THE SHIFT REPORT, PT. 59 Y OLD MALE TRACH SHILEY # 6 ON VENT WITH NOTED SETTINGS, ALARMS ARE SET AND FUNCTIONAL, EQUAL CHEST RISE NOTED, VENT PLUGGED INTO RED OUTLET, AMBU BAG REMAIN AT THE BEDSIDE. B/S RHONCHI AND SUCTIONED FOR LARGE AMOUNT OF STARKS SECRETIONS, HME CHANGED, STOCK LETTERER DONE, PT. ABELARDO. T/O DAY AND NO DISTRESS NOTED. NO ABG PER DR. ALEX PT. REMAIN STABLE AND REPORT WILL PASS TO PM SHIFT. Addendum: 11/06/20 at 1810 by IZABELA BEAVERS RT Amended: Links added.
--- NOTE | 2020-11-06 20:03 | NUR ---
PT TRANSFERRED TO TELE.
--- NOTE | 2020-11-06 20:05 | NUR ---
CURTAIN STITCHER. TRANSFER THE PT TO ROOM 115, BED #1, REPORT GIVEN TO Db. PT VITALS STABLE.
[2020-11-07] VITALS: BP 134/78
[2020-11-07] MEDS: TWOCAL HN 1,000 ML LIQUID GT PRN (00:58)
[2020-11-07 04:00] VITALS: BP 127/70
[2020-11-07] MEDS: HYDROCORTISONE SOD SUCCINATE 100 MG/2 ML VIAL IV SCH ×3 (05:33→20:55)
[2020-11-07 06:33] LABS: BASOPHILS % (AUTO) 0.1 % (0.0-2.0); EOSINOPHILS % (AUTO) 0.1 % (0.0-6.0); HEMATOCRIT 28 % (39-51); HEMOGLOBIN 8.7 g/dL (13.5-17.5); LYMPHOCYTES # (AUTO) 2.1 /CMM (0.8-4.8); MEAN CORPUSCULAR HGB CONC 32 g/dl (31.0-36.0); MEAN CORPUSCULAR VOLUME 95 fL (80-96); MONOCYTES # (AUTO) 0.9 /CMM (0.1-1.30); MONOCYTES % (AUTO) 3.4 % (2.0-12.0); NEUTROPHILS # (AUTO) 23.7 /CMM (1.8-8.9); NEUTROPHILS % (AUTO) 88.4 % (43.0-81.0); PLATELET COUNT (AUTO) 277 /CMM (150-450); RED BLOOD CELL COUNT(AUTO) 2.91 MIL/uL (4.5-6.0); WHITE BLOOD COUNT (AUTO) 26.8 K/uL (4.3-11.0)
[2020-11-07 06:57] LABS: CALCIUM, SERUM 6.6 mg/dL (8.5-10.1); MAGNESIUM 1.9 mg/dL (1.8-2.4); PHOSPHORUS 3.6 mg/dL (2.5-4.9)
--- NOTE | 2020-11-07 07:35 | NUR ---
RN OPENING NOTES RECEIVED PATIENT AWAKE BUT NON VERBAL. TRACH TO VENT WITH SETTINGS AC 12 FIO2 30% PEEP 0. SR ON TELEMETRY. LEFT IJ WITH 1/2 NS AT 50ML/HR. G TUBE WITH 2 APOLONIA AT 35ML/HR. ZARATE AND FLEXI-SEAL DRAINING TO GRAVITY.SAFETY CHECKS IN PLACE. WILL CONTINUE TO MONITOR.
--- NOTE | 2020-11-07 07:49 | NUR ---
RN NOTE STATUS CHANGED TO TELE.
[2020-11-07 08:00] VITALS: BP_SYST 102; BP_SYST 148; BP_DIAS 48; BP_DIAS 65
[2020-11-07] MEDS: PANTOPRAZOLE 40 MG/PACK PACK GT SCH (08:15)
[2020-11-07] MEDS: LEVETIRACETAM SOL (5 ML) 100 MG/ML UDC GT SCH ×2 (08:16→20:55)
[2020-11-07] MEDS: LEVOTHYROXINE SODIUM 100 MCG TABLET GT SCH (08:16)
[2020-11-07] MEDS: GABAPENTIN 100 MG CAPSULE PEG SCH ×3 (08:16→16:06)
[2020-11-07] MEDS: VIT B CMPLX 3/FA/VIT C/BIOTIN 1 TAB TABLET PEG SCH (08:17)
[2020-11-07] MEDS: ZINC SULFATE 220 MG CAPSULE GT SCH (08:17)
[2020-11-07] MEDS: CINACALCET HCL 30 MG TABLET GT SCH (08:17)
[2020-11-07] MEDS: MIDODRINE HCL (5MG) 5 MG TABLET PEG SCH ×3 (08:18→16:06)
[2020-11-07] MEDS: HEPARIN SODIUM, PORCINE 5000 UNITS/1 ML VIAL SQ SCH ×2 (08:20→20:59)
[2020-11-07] MEDS: MEROPENEM 500 MG in IV NS 0.9% 50 ML IV SCH ×2 (08:21→20:54)
[2020-11-07] MEDS: LINEZOLID 600 MG TABLET PO SCH ×2 (09:05→20:55)
[2020-11-07 12:00] VITALS: BP 115/63
[2020-11-07] MEDS: SOD FERRIC GLUC 125 MG in IV NS 0.9% 100 ML IV SCH (13:33)
[2020-11-07 16:00] VITALS: BP 109/64
[2020-11-07] MEDS: IV 1/2NS 1000 ML 1,000 ML IV PRN (16:07)
--- NOTE | 2020-11-07 17:36 | NUR ---
RT END OF THE SHIFT REPORT, PT. 59 Y OLD MALE TRACH LISA # 6 ON VENT WITH NOTED SETTINGS, ALARMS ARE SET AND FUNCTIONAL, EQUAL CHEST RISE NOTED, VENT PLUGGED INTO RED OUTLET, AMBU BAG REMAIN AT THE BEDSIDE. B/S RALES POST SUCTIONED FOR LARGE AMOUNT OF STARKS SECRETIONS, HME CHANGED, VALVE INSERTER DONE, PT. ABELARDO. T/O DAY AND NO CHANGES NOR DISTRESS NOTED. REPORT WILL BE PASS TO BASKET BRAIDER. Addendum: 11/07/20 at 1745 by IZABELA BEAVERS RT Amended: Links added.
--- NOTE | 2020-11-07 18:19 | NUR ---
RN CLOSING NOTES PATIENT'S CONDITION REMAINS UNCHANGED. TRACH TO VENT WITH SAME SETTINGS AC 12 FIO2 30% PEEP 0. SR 65 ON TELEMETRY. LEFT IJ WITH 1/2 NS AT 50ML/HR. TOLERATING 2 APOLONIA AT 35ML/HR VIA G TUBE. ZARATE DRAINED 650MLS AND AND FLEXI-SEAL DRAINED 100MLS WITH SOME LEAKING NOTED PROBABLY DUE TO POSITION OF CONTRACTURED LEGS .SAFETY CHECKS IN PLACE. WILL ENDORSE TO NIGHT RN FOR CONTINUITY OF CARE.
[2020-11-07 20:00] VITALS: BP 125/63
--- NOTE | 2020-11-07 20:00 | NUR ---
RN NOTE RECEIVED PT IN BED ,PT DOES NOT FOLLOW COMMANDS ,PT IS ON VENT VIA TRACH SATING 100%, PT HAS TF 2 APOLONIA HN AT 35 ML/H. SAFETY MEASURES IN PLACE.
[2020-11-08] VITALS: BP 134/71
[2020-11-08 04:00] VITALS: BP 128/79
[2020-11-08] MEDS: HYDROCORTISONE SOD SUCCINATE 100 MG/2 ML VIAL IV SCH ×3 (05:08→20:33)
[2020-11-08 05:50] LABS: BASOPHILS % (AUTO) 0.1 % (0.0-2.0); EOSINOPHILS % (AUTO) 0.1 % (0.0-6.0); HEMATOCRIT 26 % (39-51); HEMOGLOBIN 8.2 g/dL (13.5-17.5); LYMPHOCYTES # (AUTO) 1.8 /CMM (0.8-4.8); LYMPHOCYTES % (AUTO) 8.3 % (20.0-44.0); MEAN CORPUSCULAR HGB CONC 32 g/dl (31.0-36.0); MEAN CORPUSCULAR VOLUME 93 fL (80-96); MONOCYTES # (AUTO) 0.8 /CMM (0.1-1.30); MONOCYTES % (AUTO) 3.7 % (2.0-12.0); NEUTROPHILS % (AUTO) 87.8 % (43.0-81.0); PLATELET COUNT (AUTO) 256 /CMM (150-450); RED BLOOD CELL COUNT(AUTO) 2.77 MIL/uL (4.5-6.0); WHITE BLOOD COUNT (AUTO) 21.6 K/uL (4.3-11.0)
[2020-11-08 06:18] LABS: CALCIUM, SERUM 6.7 mg/dL (8.5-10.1); MAGNESIUM 1.9 mg/dL (1.8-2.4); PHOSPHORUS 3.7 mg/dL (2.5-4.9); POTASSIUM 3.9 mmol/L (3.5-5.1)
--- NOTE | 2020-11-08 07:20 | NUR ---
RN REPORT GIVEN TO ONCOMING SHIFT FOR PREET.
--- NOTE | 2020-11-08 07:30 | NUR ---
RN OPENING NOTE NONVERBAL VENT TRACH PT OPENS EYES TO VERBAL STIMULI ON VENT SETTINGS PER MD ORDER OF TRACH 6, AC 12, TV 470, FIO2 30%, PEEP 0, WITH NO SIGNS OF RESP DISTRESS OR SOB, BREATHING EVEN AND UNLABORED, SPO2 100%. PT HAS LT IJ ACCESS, 1 OF 2 LUMEN PATENT, FLUSHED AND INTACT, RUNNING 1/2 NS @ 50ML/HR. PT HAS ZARATE CATH DRAINING CLEAR YELLOW URINE TO GRAVITY, PATENT AND INTACT. PT RECTAL TUBE DRAINING TO GRAVITY WELL, INTACT, CURRENTLY 100CC. PT HAS SACRAL WOUND COVERED IN MEPILEX, CLEAN AND DRY. PT GTUBE AUSCULTATED FOR POSITIVE PLACEMENT, FLUSHED AND INTACT, RUNNING TWO APOLONIA HN @ 35ML/HR, NO RESIDUALS NOTED. ALL PT SAFETY PRECAUTIONS IN PLACE, WILL CONT TO MONITOR
[2020-11-08 08:00] VITALS: BP 136/74
[2020-11-08] MEDS: CINACALCET HCL 30 MG TABLET GT SCH (08:34)
[2020-11-08] MEDS: LEVETIRACETAM SOL (5 ML) 100 MG/ML UDC GT SCH ×2 (08:34→20:32)
[2020-11-08] MEDS: HEPARIN SODIUM, PORCINE 5000 UNITS/1 ML VIAL SQ SCH ×2 (08:35→20:35)
[2020-11-08] MEDS: MEROPENEM 500 MG in IV NS 0.9% 50 ML IV SCH ×2 (08:35→20:06)
[2020-11-08] MEDS: LEVOTHYROXINE SODIUM 100 MCG TABLET GT SCH (08:35)
[2020-11-08] MEDS: ZINC SULFATE 220 MG CAPSULE GT SCH (08:36)
[2020-11-08] MEDS: GABAPENTIN 100 MG CAPSULE PEG SCH ×3 (08:36→17:36)
[2020-11-08] MEDS: LINEZOLID 600 MG TABLET PO SCH ×2 (08:36→20:32)
[2020-11-08] MEDS: VIT B CMPLX 3/FA/VIT C/BIOTIN 1 TAB TABLET PEG SCH (08:36)
[2020-11-08] MEDS: PANTOPRAZOLE 40 MG/PACK PACK GT SCH (08:36)
[2020-11-08] MEDS: MIDODRINE HCL (5MG) 5 MG TABLET PEG SCH ×3 (08:37→17:36)
[2020-11-08 09:53] LABS: BAND % (MANUAL) 3 % (0.0-5.0); LYMPHOCYTES % (MANUAL) 6 % (16-48); MONOCYTES % (MANUAL) 4 % (0-11.0); NEUTROPHILS % (MANUAL) 87 (42-76)
[2020-11-08] MEDS: TWOCAL HN 1,000 ML LIQUID GT PRN (11:53)
[2020-11-08 12:00] VITALS: BP 115/60
[2020-11-08] MEDS: IV 1/2NS 1000 ML 1,000 ML IV PRN (13:36)
[2020-11-08] MEDS: SOD FERRIC GLUC 125 MG in IV NS 0.9% 100 ML IV SCH (13:52)
[2020-11-08 16:00] VITALS: BP 93/52
--- NOTE | 2020-11-08 19:20 | NUR ---
RN CLOSING NOTE NO CHANGES TO PT DURING SHIFT. PT ON SAME VENT SETTINGS PER MD ORDER. NO SIGNS OF RESP DISTRESS OR SOB, SPO2 100%. ALL PT SAFETY PRECAUTIONS IN PLACE, PREET ENDORSED TO PASSENGER AGENT RN
--- NOTE | 2020-11-08 19:50 | NUR ---
RN OPENING NOTE, PATIENT IN BED ON MECHANICAL VENTILATOR, NONVERBAL OPENS EYES, NO SIGNS OF RESP DISTRESS OR SOB, NSR IN TELE MONITOR, LT IJ ACCESS, 1 OF 2 LUMEN PATENT, FLUSHED AND INTACT, RUNNING 1/2 NS @ 50ML/HR. ZARATE CATH IN PLACE, DRAINING CLEAR YELLOW URINE TO GRAVITY, PATENTCY INTACT, RECTAL TUBE IN [PLACE, GT IN PLACE, TWO APOLONIA HN @ 35ML/HR, INFUSING WELL NO RESIDUALS NOTED, ALL SAFETY PRECAUTIONS IN PLACE, HOB ELEVATED AT ALL TIMES, WILL CONT TO MONITOR CLOSELY.
[2020-11-08 20:00] VITALS: BP 131/74
[2020-11-09] VITALS: BP 139/74
[2020-11-09 04:00] VITALS: BP 111/62
[2020-11-09 06:30] LABS: BASOPHILS % (AUTO) 0.1 % (0.0-2.0); EOSINOPHILS % (AUTO) 0.1 % (0.0-6.0); HEMATOCRIT 27 % (39-51); HEMOGLOBIN 8.8 g/dL (13.5-17.5); LYMPHOCYTES # (AUTO) 1.6 /CMM (0.8-4.8); LYMPHOCYTES % (AUTO) 11.2 % (20.0-44.0); MEAN CORPUSCULAR HGB CONC 33 g/dl (31.0-36.0); MEAN CORPUSCULAR VOLUME 93 fL (80-96); MONOCYTES # (AUTO) 0.8 /CMM (0.1-1.30); MONOCYTES % (AUTO) 5.7 % (2.0-12.0); NEUTROPHILS # (AUTO) 12.2 /CMM (1.8-8.9); NEUTROPHILS % (AUTO) 82.9 % (43.0-81.0); PLATELET COUNT (AUTO) 222 /CMM (150-450); RED BLOOD CELL COUNT(AUTO) 2.92 MIL/uL (4.5-6.0); WHITE BLOOD COUNT (AUTO) 14.7 K/uL (4.3-11.0)
--- NOTE | 2020-11-09 06:37 | NUR ---
RN OPENING NOTE, PATIENT ON MECHANICAL VENTILATOR, NONVERBAL ASLEEP, AROUSABLE TO TACTILE STIMULI, NO SIGNS OF RESP DISTRESS OR SOB, NS//SB IN TELE MONITOR THROUGHOUT THE NIGHT, NO SIGNIFICANT CHANGE IN CONDITION DURING THE NIGHT, ALL SAFETY PRECAUTIONS IN PLACE, HOB ELEVATED AT ALL TIMES, WILL ENDORSE CONTINUITY OF CARE TO ONCOMING NURSE. Addendum: 11/09/20 at 0656 by LAURA ESPOSITO RN CLOSING NOTE
[2020-11-09 06:39] LABS: CALCIUM, SERUM 6.5 mg/dL (8.5-10.1); CREATININE 1.8 mg/dL (0.6-1.3); POTASSIUM 3.8 mmol/L (3.5-5.1)
--- NOTE | 2020-11-09 07:30 | NUR ---
RN OPENING NOTES PATIENT PRESENT IN BED, ON [facility] RODRIGO, TOLERATING SETTINGS WELL, NO ACUTE DISTRESS OR SOB NOTED, SPO2 98% ON O2 SAT MONITOR, NSR WITH HR OF 65 RIGHT NOW, ZARATE CATH IN PLACE, RECTAL TUBE IN PLACE, CIG ON L SIDE INTACT AND PATENT, FLUSHED, DRESSING INTACT, BOTH PATENT AND INTACT, SAFETY MEASLES IN PLACE,, BED LOCKED,M IN LOWEST POSITION, WILL CONT TO MONITOR
[2020-11-09 08:00] VITALS: BP 113/66
[2020-11-09] MEDS: HEPARIN SODIUM, PORCINE 5000 UNITS/1 ML VIAL SQ SCH (08:32)
[2020-11-09] MEDS: LEVETIRACETAM SOL (5 ML) 100 MG/ML UDC GT SCH (08:34)
[2020-11-09] MEDS: HYDROCORTISONE SOD SUCCINATE 100 MG/2 ML VIAL IV SCH (08:34)
[2020-11-09] MEDS: VIT B CMPLX 3/FA/VIT C/BIOTIN 1 TAB TABLET PEG SCH (08:35)
[2020-11-09] MEDS: GABAPENTIN 100 MG CAPSULE PEG SCH ×3 (08:35→17:32)
[2020-11-09] MEDS: LINEZOLID 600 MG TABLET PO SCH (08:35)
[2020-11-09] MEDS: LEVOTHYROXINE SODIUM 100 MCG TABLET GT SCH (08:35)
[2020-11-09] MEDS: MIDODRINE HCL (5MG) 5 MG TABLET PEG SCH ×3 (08:35→17:32)
[2020-11-09] MEDS: ZINC SULFATE 220 MG CAPSULE GT SCH (08:35)
[2020-11-09] MEDS: PANTOPRAZOLE 40 MG/PACK PACK GT SCH (08:35)
[2020-11-09] MEDS: CINACALCET HCL 30 MG TABLET GT SCH (08:35)
[2020-11-09] MEDS: MEROPENEM 500 MG in IV NS 0.9% 50 ML IV SCH (08:41)
[2020-11-09] MEDS: TWOCAL HN 1,000 ML LIQUID GT PRN (10:43)
[2020-11-09] MEDS: IV 1/2NS 1000 ML 1,000 ML IV PRN (10:52)
[2020-11-09 12:00] VITALS: BP 101/56
--- NOTE | 2020-11-09 16:05 | NUR ---
Report given to Micheline SCHNEIDER at [phone]
[2020-11-09 17:32] VITALS: BP 131/53
--- NOTE | 2020-11-09 18:16 | NUR ---
Discharged with [facility] [address] [facility], name and destination confirmed, ID band removed, report givent to facility
== END 2020-11-09 18:06 | DRG 720 ==
LOC: ICU 22:40 → TELE1 11-06 19:40 → TELE-TD 11-06 22:22 → TELE1 11-07 07:44
PROVIDERS: ADMIT Nurse Practitioner Family
PROC: 5A1955Z Respiratory Ventilation, Greater than 96 Consecutive Hours (ICD-10-PCS; principal; 2020-11-01)
PROC: 30233N1 Transfusion of Nonautologous Red Blood Cells into Peripheral Vein, Percutaneous Approach (ICD-10-PCS; 2020-11-04)
DX: A41.81 Sepsis due to Enterococcus (principal); N17.0 Acute kidney failure with tubular necrosis; R65.21 Severe sepsis with septic shock; Z99.11 Dependence on respirator [ventilator] status; G93.1 Anoxic brain damage, not elsewhere classified; E44.0 Moderate protein-calorie malnutrition; J96.10 Chronic respiratory failure, unspecified whether with hypoxia or hypercapnia; J18.9 Pneumonia, unspecified organism; G93.41 Metabolic encephalopathy; Z86.73 Personal history of transient ischemic attack (TIA), and cerebral infarction without residual deficits; D64.9 Anemia, unspecified; E03.9 Hypothyroidism, unspecified; E27.40 Unspecified adrenocortical insufficiency; E86.0 Dehydration; E87.0 Hyperosmolality and hypernatremia; E87.2 Acidosis; Z20.822 Contact with and (suspected) exposure to COVID-19; Z93.0 Tracheostomy status; Z93.1 Gastrostomy status; N39.0 Urinary tract infection, site not specified; N18.9 Chronic kidney disease, unspecified; E88.09 Other disorders of plasma-protein metabolism, not elsewhere classified; Z68.27 Body mass index [BMI] 27.0-27.9, adult; Z90.5 Acquired absence of kidney; Z85.850 Personal history of malignant neoplasm of thyroid; E87.8 Other disorders of electrolyte and fluid balance, not elsewhere classified; Z91.81 History of falling; M24.571 Contracture, right ankle; M24.572 Contracture, left ankle; B95.7 Other staphylococcus as the cause of diseases classified elsewhere; R19.7 Diarrhea, unspecified; Z85.528 Personal history of other malignant neoplasm of kidney; Z85.51 Personal history of malignant neoplasm of bladder; J04.10 Acute tracheitis without obstruction
CPT/HCPCS: 31720; 36415; 71045-TC; 76770-TC; 80048-TC; 80053-TC; 80061-TC; 81001; 82533; 82550-TC; 82570-TC; 83540-TC; 83735-TC; 83970; 84100-TC; 84155; 84155-TC; 84165; 84300-TC; 84439-TC; 84443-TC; 85025-TC; 85652-TC; 86225; 86235; 86706; 86803; 86850-TC; 87040-TC; 87070-TC; 87081-TC; 87086-TC; 87340; 94002-TC; 94003-TC; 94640-TC; 94760-TC; 94799-TC; 99082-TC; A4216; A4623; A7526; G0378; J0713; J1644; J1720; J1953; J2020; J2185; J2916; J3370; J3480; J3490; J7030; J7050; J7060; J7070; P9016

== ENCOUNTER 2021-03-30 15:41 | Inpatient (IN) | payer MEDICAID ==
[~2021-03-30] VITALS: Ht 167.6 cm; Wt 83.9 kg
[~2021-03-30 15:41] MED LIST: ACET160E36 PEG; ACET160E36 RC; ALBU2.5V38 NEB; CEFT1VIA55 IV; CINA30TA2 PEG; FOLI0.8T2 PEG; GABA600T12 PEG; LEVE500T9 PEG; LEVO112T5 GT; MELA3TAB41 PEG; MIDO10TA PEG; MUPI22OI2 TP; PANT40TA2 PEG; SODI650T PEG; ZINC1CAP3 PEG; [UNRECOGNIZED DRUG - CODE] IV/SQ
--- NOTE | 2021-03-30 15:45 | NUR ---
TO ER BED 5, [id number] FRM [facility] FOR NOTED LOW BLOOD PRESSURE, NON VERBAL, CONNECTED TO MONITOR, AWITING MD CALHOUN
--- NOTE | 2021-03-30 15:58 | NUR ---
rt note patient received via ems from [facility] facility. vent settings per facility charted. trach patent ans secure. pt in no resp. distress. vent alarms on and audible. bvm bedside. vent plugged in red outlet. will continue to monitor. Addendum: 03/30/21 at 1601 by HAYDE BROWN RT Amended: Links added.
[2021-03-30] MEDS ORDERED: ALBU2.5V38 IH (16:07)
[2021-03-30] MEDS ORDERED: NUTR100037 GT (16:07)
[2021-03-30] MEDS ORDERED: LEVE500T9 GT (16:07)
[2021-03-30] MEDS ORDERED: SODI650T GT (16:07)
[2021-03-30] MEDS ORDERED: LEVO125T8 GT (16:07)
[2021-03-30] MEDS ORDERED: MIDO10TA GT (16:07)
[2021-03-30] MEDS ORDERED: COLL30OI TP (16:07)
[2021-03-30] MEDS ORDERED: PANT40SU2 GT (16:07)
[2021-03-30] MEDS ORDERED: BLOO-668 IN (16:07)
[2021-03-30] MEDS ORDERED: CHLO473M5 MM (16:07)
[2021-03-30] MEDS ORDERED: FOLI0.8T2 GT (16:07)
[2021-03-30] MEDS ORDERED: THIA100T88 GT (16:07)
[2021-03-30] MEDS ORDERED: THIA100T70 GT (16:07)
[2021-03-30] MEDS ORDERED: VANCOMYCIN 1 GM in IV D5W 250 ML IV ONE (16:30)
[2021-03-30] MEDS ORDERED: IV NS 0.9% 1,000 ML BAG IV ONE (16:30)
[2021-03-30] MEDS ORDERED: CEFTAZIDIME 1 G in IV D5W 50 ML IV ONE (16:30)
--- NOTE | 2021-03-30 16:58 | NUR ---
OPHTHALMIC TECH AT BEDSIDE
[2021-03-30 16:59] LABS: BASOPHILS # (AUTO) 0.2 K/uL (0.0-0.2); BASOPHILS % (AUTO) 1.4 % (0.0-2.0); HEMATOCRIT 29 % (39-51); LYMPHOCYTES # (AUTO) 1.6 K/uL (0.8-4.8); LYMPHOCYTES % (AUTO) 11.3 % (20.0-44.0); MEAN CORPUSCULAR HGB CONC 32 g/dl (31.0-36.0); MEAN CORPUSCULAR VOLUME 95 fL (80-96); MONOCYTES # (AUTO) 0.6 K/uL (0.1-1.30); MONOCYTES % (AUTO) 4.4 % (2.0-12.0); NEUTROPHILS # (AUTO) 10.9 K/uL (1.8-8.9); NEUTROPHILS % (AUTO) 74.9 % (43.0-81.0); PLATELET COUNT (AUTO) 608 K/uL (150-450); RED BLOOD CELL COUNT(AUTO) 2.98 MIL/uL (4.5-6.0); WHITE BLOOD COUNT (AUTO) 14.6 K/uL (4.3-11.0)
--- NOTE | 2021-03-30 17:06 | NUR ---
CALLED NURSING SUP FOR [facility] BED.
[2021-03-30 17:11] LABS: CALCIUM, SERUM 8.4 mg/dL (8.5-10.1); CARBON DIOXIDE 22 mmol/L (21-32); CHLORIDE 117 mmol/L (98-107); CREATININE 3.2 mg/dL (0.6-1.3); GLUCOSE 99 mg/dL (74-106); POTASSIUM 3.9 mmol/L (3.5-5.1); SODIUM SERUM 152 mmol/L (136-145)
[2021-03-30 17:16] LABS: UREA NITROGEN, BLOOD 80 mg/dL (7-18)
[2021-03-30 17:24] LABS: ALANINE AMINOTRANSFERASE 38 U/L (12-78); ALBUMIN 2.6 g/dL (3.4-5.0); ALKALINE PHOSPHATASE 160 U/L (46-116); ASPARTATE AMINOTRANSFERASE 37 U/L (15-37); BILIRUBIN,DIRECT 0.1 mg/dL (0.0-0.2); BILIRUBIN,TOTAL 0.2 mg/dL (0.2-1.0); TOTAL PROTEIN, SERUM 6.7 g/dL (6.4-8.2)
--- NOTE | 2021-03-30 17:25 | NUR ---
URINE COLLECTED AND SENT TO LAB
[2021-03-30 17:32] LABS: BILIRUBIN,URINE Negative (NEGATIVE); COLOR,URINE YELLOW (YELLOW); LEUKOCYTE ESTERASE ,URINE Large (NEGATIVE); NITRITE, URINE Negative (NEGATIVE); PROTEIN,URINE 100 mg/dl (NEGATIVE); UGLUCOSE Negative (NEGATIVE); UROBILINOGEN,URINE 0.2 EU/dL (0.2)
[2021-03-30 17:34] LABS: BACTERIA,URINE 3+ /HPF (None Seen); PH,URINE >8.5 (5.0-8.0); SQUAMOUS EPITHELIAL CELL,UR Few /HPF (None Seen); WBC,URINE 21-50 /HPF (0-3)
--- NOTE | 2021-03-30 17:40 | NUR ---
PAGED [facility].
--- NOTE | 2021-03-30 18:00 | NUR ---
[facility] FOR [facility].
--- NOTE | 2021-03-30 18:43 | NUR ---
[facility] WHERE PATIENT STAYS CALLED AND GIVEN UPDATE
--- NOTE | 2021-03-30 19:55 | NUR ---
BED 118-2
--- NOTE | 2021-03-30 20:23 | NUR ---
report given to brent landaverde
--- NOTE | 2021-03-30 20:24 | NUR ---
transferring pt to 118 per acls
--- NOTE | 2021-03-30 20:35 | NUR ---
RT NOTE PT TRANSFERRED TO ROOM 118. VENT IS PLUGGED INTO RED OUTLET. BMV AND SPARE TRACH @ HOB. ALARMS ARE SET AND AUDIBLE. PT SX'D W NO ADVERSE REACTIONS. NO RESP DISTRESS NOTED @ THIS TIME.
[2021-03-30 21:16] VITALS: BP 75/45
[2021-03-30] MEDS ORDERED: IV NS 0.9% 1,000 ML IV ONE (22:00)
[2021-03-30] MEDS ORDERED: COLLAGENASE 30 GM TUBE TP SCH (22:00)
[2021-03-30] MEDS ORDERED: MUPIROCIN OINT 2% 22 GM TUBE TP PRN (22:00)
[2021-03-30] MEDS ORDERED: ALBUTEROL FS 2.5 MG/3 ML VIAL.NEB NEB PRN (22:00)
[2021-03-30] MEDS: MIDODRINE HCL (5MG) 5 MG TABLET GT SCH (22:15)
[2021-03-30] MEDS ORDERED: ONDANSETRON HCL/PF 4 MG/2 ML VIAL IVP PRN (22:30)
[2021-03-30] MEDS ORDERED: Z GUARD REMEDY 2 OZ OINT TP PRN (22:30)
[2021-03-30] MEDS ORDERED: MEROPENEM 1 G in IV NS 0.9% 100 ML IV ONE (23:30)
[2021-03-30] MEDS ORDERED: MEROPENEM 1 G VIAL IV ONE (23:32)
[2021-03-30] MEDS: HYDROCORTISONE SOD SUCCINATE 100 MG/2 ML VIAL IV SCH (23:41)
[2021-03-30] MEDS: ENOXAPARIN SODIUM 30 MG/0.3 ML DISP.SYRIN SQ SCH (23:44)
[2021-03-30] MEDS: FLUDROCORTISONE 0.1 MG TABLET GT SCH (23:45)
[2021-03-30] MEDS: IV 1/2NS 1000 ML 1,000 ML IV PRN (23:45)
[2021-03-31] VITALS (94 sets, daily range): BP systolic 65–123; BP diastolic 33–80
--- NOTE | 2021-03-31 00:28 | NUR ---
0028 LION XAVIER MADE AWARE OF PATIENT'S PERSISTENT LOW BP IN THE 70S, CHECKED WITH DIFFERENT MACHINES, WITH ORDER TO TRANSFER PATIENT TO ICU TO START ON LEVOPHED FOR BP SUPPORT. ORDER NOTED AND CARRIED OUT.
--- NOTE | 2021-03-31 00:32 | NUR ---
TELE-TD/SHOTGUN SHELL ASSEMBLY MACHINE ADJUSTER PT BP IS 79/48 AFTER BOLUS. JUANY CONTRACT ADMIN NOTIFIED ORDERS TO TRANSFER TO ICU AND START LEVO. WILL CONTINUE TO MONITOR.
--- NOTE | 2021-03-31 00:54 | NUR ---
RN/ICU-RECEIVED PT. FROM TD VIA BED PER ACLS PROTOCOL, ACCOMPANIED BY STAFF. TRANSFERRED FOR HYPOTENSION W/ DIAGNOSIS:SEPSIS/UTI. ROUTINE ICU ADMISSION CARE INITIATED.PT. IS OBTUNDED,ON THE VENT VIA TRACH SHILEY #6 W/ INITIAL VENT SETTINGS:AC-12,VT-400,FIO2-30%,PEEP+5. SATS.100%, EKG SR-64/MIN.,BP-68/41.PEG INTACT.AFEBRILE,T-97.7/AXILLARY.NO S/S OF PAIN PER [facility] PAIN SCALE ASSESSMENT.PT.IS A FULL CODE. ON CONTACT/AIRBORNE,PRECAUTIONS IN EFFECT. Addendum: 03/31/21 at 0613 by OMEGA ALEMAN RN RN/ICU-PT. WITH MULTI SKIN PROBLEMS. REFER TO THE SKIN PROBLEM ASSESSMENT AND WOUND PHOTOS FOR DETAILS.
--- NOTE | 2021-03-31 01:01 | NUR ---
RT NOTE PT TRANSFERRED TO ICU ROOM 258. VENT IS PLUGGED INTO RED OUTLET. BMV AND SPARE TRACH @ HOB. ALARMS ARE SET AND AUDIBLE NO RESP DISTRESS NOTED @ THIS TIME. WILL CONTINUE TO MONITOR T/O SHIFT
[2021-03-31] MEDS ORDERED: NOREPINEPHRINE 8MG/250ML RTU 250 ML IV ONE ×2 (01:04→15:39)
--- NOTE | 2021-03-31 01:04 | NUR ---
TELE-TD/CHILD STUDY TEAM DIRECTOR PT TRANSFERRED TO ICU VIA ACLS PROTOCOL. OMEGA SCHNEIDER RECEIVED REPORT. I CALLED PTS TO INFORM HER OF TRANSFER TO ICU. DIANNA HADDAD [phone]. NO ANSWER LEFT VOICEMAIL.
[2021-03-31] MEDS: NOREPINEPHRINE 8 MG in IV NS 0.9% 242 ML IV PRN ×3 (01:10→15:42)
--- NOTE | 2021-03-31 01:15 | NUR ---
RN/ICU- LEVOPHED DRIP INITIATED AT 0.1 MCG/KG/MIN PER PROTOCOL TITRATED TO KEEP SBP>90. BP-68/41,HR-65.
--- NOTE | 2021-03-31 01:30 | NUR ---
RN/ICU-FOR PICC LINE INSERTION PER [facility] ORDER. WILL REATTEMPT TO CALL DIANNA FOR CONSENT IN AM.
[2021-03-31 04:44] LABS: BASOPHILS # (AUTO) 0.3 K/uL (0.0-0.2); BASOPHILS % (AUTO) 1.1 % (0.0-2.0); EOSINOPHILS % (AUTO) 5.5 % (0.0-6.0); HEMATOCRIT 31 % (39-51); HEMOGLOBIN 9.7 g/dL (13.5-17.5); LYMPHOCYTES # (AUTO) 2.9 K/uL (0.8-4.8); LYMPHOCYTES % (AUTO) 11.7 % (20.0-44.0); MEAN CORPUSCULAR HGB CONC 32 g/dl (31.0-36.0); MEAN CORPUSCULAR VOLUME 96 fL (80-96); MONOCYTES # (AUTO) 0.7 K/uL (0.1-1.30); MONOCYTES % (AUTO) 2.8 % (2.0-12.0); NEUTROPHILS # (AUTO) 19.6 K/uL (1.8-8.9); NEUTROPHILS % (AUTO) 78.9 % (43.0-81.0); RED BLOOD CELL COUNT(AUTO) 3.21 MIL/uL (4.5-6.0); WHITE BLOOD COUNT (AUTO) 24.8 K/uL (4.3-11.0)
[2021-03-31 04:57] LABS: ALBUMIN 2.5 g/dL (3.4-5.0); BILIRUBIN,TOTAL 0.4 mg/dL (0.2-1.0); CREATININE 2.7 mg/dL (0.6-1.3); MAGNESIUM 2.9 mg/dL (1.8-2.4); PHOSPHORUS 3.6 mg/dL (2.5-4.9); POTASSIUM 4.3 mmol/L (3.5-5.1); TOTAL PROTEIN, SERUM 6.9 g/dL (6.4-8.2)
[2021-03-31] MEDS ORDERED: MEROPENEM 1 G in IV NS 0.9% 100 ML IV SCH (05:00)
[2021-03-31 05:02] LABS: THYROID STIMULATING HORMONE 97.784 uIU/mL (0.358-3.74)
[2021-03-31 05:07] LABS: CALCIUM, SERUM 7.8 mg/dL (8.5-10.1)
[2021-03-31] MEDS: HYDROCORTISONE SOD SUCCINATE 100 MG/2 ML VIAL IV SCH ×3 (05:37→20:23)
--- NOTE | 2021-03-31 06:14 | NUR ---
RN/ICU-EYES OPEN, NON-INTERACTIVE, ON THE VENT PER TRACH,ON AC MODE, SATS-100%. REMAINS ON LEVOPHED DRIP AT 0.25 MCG/KG/MIN. LATEST BP83/55, HR-56, WILL CONTINUE TO TITRATE PER PROTOCOL TO KEEP SBP>90. NO S/S OF PAIN USING FLACC SCALE.AFEBRILE.WILL START TUBE FEEDS ONCE MORE STABLE, ASPIRATION PRECAUTIONS IN EFFECT.REMAINS ON CONTACT/A[place]NE PRECAUTIONS.
--- NOTE | 2021-03-31 06:45 | NUR ---
RN/ICU-ATTEMPTED TO CALL [facility] FOR PICC LINE CONSENT BUT TO NO AVAIL. WILL ENDORSE TO DAYSHIFT. PHONE NO.-[phone].
[2021-03-31 06:50] LABS: EOSINOPHILS % (MANUAL) 4 % (0-4); LYMPHOCYTES % (MANUAL) 10 % (16-48); MONOCYTES % (MANUAL) 6 % (0-11.0); NEUTROPHILS % (MANUAL) 80 (42-76)
--- NOTE | 2021-03-31 07:00 | NUR ---
RN NOTES RECEIVED PT ON BED, TRACH/ VENT DEPENDENT, TOLERATING VENT SETTING WELL, O2 SAT WNL, PT RESPONDS TO PAINFUL STIMULI , CIERRA. UPPER ARM AND LOWER EXTREMISTS ARE CONTRACTED ,ON TELE SB HR IN 50'S , ZARATE DRAINING TO GRAVITY, IV SITES CLEAN, DRY AND INTACT, LEVO DRIP RUNNING AT .25 MCG/KG/MIN, IVF AT 100CC/ HR RUNNING , SR UP x3, CALL LIGHTS WITHIN EASY REACH, BED LOCKED AND IN LOWEST POSITION, CONTINUE TO MONITOR.
[2021-03-31 07:50] LABS: PLATELET COUNT (AUTO) 868 K/uL (150-450)
[2021-03-31] MEDS: GABAPENTIN 100 MG CAPSULE GT SCH ×3 (08:36→16:27)
[2021-03-31] MEDS: THIAMINE HCL 100 MG TABLET GT SCH (08:36)
[2021-03-31] MEDS: FLUDROCORTISONE 0.1 MG TABLET GT SCH (08:37)
[2021-03-31] MEDS: PANTOPRAZOLE 40 MG/PACK PACK GT SCH (08:37)
[2021-03-31] MEDS: MIDODRINE HCL (5MG) 5 MG TABLET GT SCH ×3 (08:37→16:27)
[2021-03-31] MEDS: SODIUM BICARBONATE 650 MG TABLET PEG SCH ×2 (08:37→16:27)
[2021-03-31] MEDS: LEVETIRACETAM SOL (5 ML) 100 MG/ML UDC GT SCH ×2 (08:37→20:23)
[2021-03-31] MEDS: CINACALCET HCL 30 MG TABLET GT SCH (08:37)
[2021-03-31] MEDS: MEROPENEM 1 G in IV NS 0.9% 100 ML IV SCH ×2 (08:37→21:44)
[2021-03-31] MEDS ORDERED: MIDODRINE HCL (5MG) 5 MG TABLET PO SCH (09:00)
[2021-03-31] MEDS ORDERED: FIXODENT DENTURE ADHESIVE CREAM TUBE MM SCH (09:00)
[2021-03-31] MEDS ORDERED: LEVOTHYROXINE SODIUM 125 MCG TABLET GT SCH (09:00)
[2021-03-31] MEDS: JEVITY 1.2 CAL 1,000 ML BOTTLE GT PRN (09:15)
--- NOTE | 2021-03-31 11:00 | NUR ---
RN NOTES PT HR IN HIGH 30'S AT TIMES, DR EVERETT AND OFE NOTIFIED .
[2021-03-31] MEDS: IV 1/2NS 1000 ML 1,000 ML IV PRN ×2 (11:13→21:44)
--- NOTE | 2021-03-31 12:00 | NUR ---
RN NOTES TRACH CARE DONE, PT ON LEVO DRIP , CONTINUE TO MONITOR.
[2021-03-31] MEDS ORDERED: LIOTHYRONINE SODIUM (25 MCG) 25 MCG TABLET GT SCH (18:00)
--- NOTE | 2021-03-31 18:00 | NUR ---
RN NOTES TRACH CARE DONE, PT ON LEVO DRIP AT .1 MCG/KG/MIN, TOLERAING VENT SETTING WELL, ON TELE SB , AWARE , WILL ENDORSE TO BAR POINTER NURSE FOR CONTINUITY OF CARE .
--- NOTE | 2021-03-31 19:07 | NUR ---
RN NOTES CYTOMEL IS NOT AVAILABLE FROM PHARMACY YET , PHARMACY NOTIFED
--- NOTE | 2021-03-31 19:20 | NUR ---
POLITICAL REPORTER OPENING NOTE REC'D PT IN BED, OBTUNDED ON MECHANICAL VENTILATION. SH 6 AC 12 VT 400 FIO2 30% PEEP 0. PT TOLERATING VENT SETTINGS WELL. NO DISTRESS NOTED, NO SOB. O2 SAT 99%. ON TELE MONITOR PRESENTS WITH SINUS RHYTHM HR 40-50S. PICC LINE NURSE AT BEDSIDE, PLACING CENTRAL LINE. LEFT AND RIGHT FOREARM #20 FLUSHED. IVF RUNNING ORDERED, LEVO RUNNING AT 0.1 MCG/KG/MIN TO KEEP SBP >80 ORDERED. WILL TITRATE ACCORDINGLY. PT IS CONTRACTED BLE AND RUE. LEFT UPPER EXT ABNORMAL EXTENSION NOTED. MULT WOUNDS NOTED, WOUND CONSULT STILL PENDING. PT AFEBRILE, NO S/S OF PAIN, (FLACC) GTF RUNNING ORDERED, GT ASPIRATED FLUSHED AND AUSCULTATED FOR PLACEMENT. 15CC RESIDUAL NOTED. NOTED ZARATE CATH DRAINING VIA GRAVITY, CLEAR YELLOW. SAFETY MEASURES OBSERVED, SIDE RAILS UP X3, BED LOCKED IN LOWEST POSITION. HOB ELEVATED. WILL CONT TO MONITOR FOR CHANGE OF CONDITION THROUGHOUT SHIFT.
[2021-03-31] MEDS ORDERED: NOREPINEPHRINE 8 MG in IV NS 0.9% 242 ML IV PRN (19:30)
[2021-03-31] MEDS: VANCOMYCIN 1 GM in IV D5W 250 ML IV SCH (20:23)
[2021-03-31] MEDS: CHLORHEXIDINE GLUCONATE 15 ML UDC MM SCH (20:24)
[2021-03-31] MEDS: ENOXAPARIN SODIUM 30 MG/0.3 ML DISP.SYRIN SQ SCH (21:45)
[2021-04-01] VITALS (87 sets, daily range): BP systolic 76–113; BP diastolic 39–64
[2021-04-01 04:31] LABS: BASOPHILS % (AUTO) 0.1 % (0.0-2.0); EOSINOPHILS % (AUTO) 0.1 % (0.0-6.0); HEMATOCRIT 23 % (39-51); HEMOGLOBIN 7.6 g/dL (13.5-17.5); LYMPHOCYTES # (AUTO) 2.1 K/uL (0.8-4.8); LYMPHOCYTES % (AUTO) 7.8 % (20.0-44.0); MEAN CORPUSCULAR HGB CONC 33 g/dl (31.0-36.0); MEAN CORPUSCULAR VOLUME 94 fL (80-96); MONOCYTES % (AUTO) 3.5 % (2.0-12.0); NEUTROPHILS # (AUTO) 24.3 K/uL (1.8-8.9); NEUTROPHILS % (AUTO) 88.5 % (43.0-81.0); PLATELET COUNT (AUTO) 708 K/uL (150-450); RED BLOOD CELL COUNT(AUTO) 2.47 MIL/uL (4.5-6.0); WHITE BLOOD COUNT (AUTO) 27.5 K/uL (4.3-11.0)
[2021-04-01] MEDS: HYDROCORTISONE SOD SUCCINATE 100 MG/2 ML VIAL IV SCH ×3 (04:44→20:07)
[2021-04-01 05:02] LABS: ALBUMIN 2.1 g/dL (3.4-5.0); BILIRUBIN,TOTAL 0.2 mg/dL (0.2-1.0); CREATININE 2.5 mg/dL (0.6-1.3); MAGNESIUM 2.4 mg/dL (1.8-2.4); PHOSPHORUS 3.9 mg/dL (2.5-4.9); POTASSIUM 3.3 mmol/L (3.5-5.1); TOTAL PROTEIN, SERUM 5.8 g/dL (6.4-8.2)
[2021-04-01] MEDS: NOREPINEPHRINE 8 MG in IV NS 0.9% 242 ML IV PRN (05:48)
[2021-04-01 06:51] LABS: BAND % (MANUAL) 4 % (0.0-5.0); LYMPHOCYTES % (MANUAL) 2 % (16-48); METAMYELOCYTES % 4 % (0-0); MONOCYTES % (MANUAL) 2 % (0-11.0); MYELOCYTES % 1 % (0-0); NEUTROPHILS % (MANUAL) 87 (42-76)
--- NOTE | 2021-04-01 06:56 | NUR ---
WOUND CARE CONSULT: REVIEWED CHART, NURSING DOCUMENTATION AND PHOTOS WHICH INDICATE MULTIPLE WOUNDS PRESENT ON ADMISSION INCLUDING INTACT DEEP TISSUE INJURY TO UPPER BACK, SCARRING TO LEFT BUTTOCK, SACRAL FULL THICKNESS WOUND WITH SCARRING, LEFT HAND BLISTER AND OPEN AREAS TO LOWER EXTREMITIES. SURGICAL AND DPM CONSULTS TO BE MADE THIS AM TO DR MARTHA GRIFFIN AND DR SHIELDS. RECOMMENDATIONS MADE FOR SKIN PROTECTION AND WOUND CARE. MD IN AGREEMENT WITH PLAN OF CARE. PT IS ON HADLEY ISOFLEX LOW AIRLOSS BED.
--- NOTE | 2021-04-01 06:58 | NUR ---
RN CLOSING NOTE NO SIGNIFICANT CHANGES IN PT CONDITION. STILL REMAINS ON SAME VENT SETTINGS NO DISTRESS NOTED. BED BATH DONE, ORAL CARE DONE. NO WOUND TREATMENT ORDERED. WILL FOLLOW UP WITH DAY SHIFT. NO S/S OF PAIN. PT REMAINS WITH LEVO AT 0.12 MCG/KG/MIN TO KEEP BP >80 ORDERED. SAFETY MEASURES WILL CONT TO BE OBSERVED UNTIL END OF SHIFT. WILL GIVE REPORT TO DAY SHIFT RN FOR CONTINUATION OF CARE.
--- NOTE | 2021-04-01 07:00 | NUR ---
RN NOTE RECEIVED PT ON BED, OBTUNDED ON MECHANICAL VENTILATION, TOLERATING VENT SETTING WELL, NO DISTRESS NOTED, NO SOB.O2 SAT WNL, ON TELE SB HR IN 50'S , IV SITES CLEAN, DRY AND INTACT, IVF RUNNING ORDERED, LEVO RUNNING AT 0.12 MCG/KG/MIN TO KEEP SBP >80 ORDERED. WILL TITRATE ACCORDINGLY. PT IS CONTRACTED BLE AND RUE. LEFT UPPER EXT ABNORMAL EXTENSION NOTED. MULT WOUNDS NOTED, GT ASPIRATED FLUSHED AND AUSCULTATED FOR PLACEMENT. 10CC RESIDUAL NOTED. NOTED ZARATE CATH DRAINING VIA GRAVITY, CLEAR YELLOW. SAFETY MEASURES OBSERVED, SIDE RAILS UP X3, BED LOCKED IN LOWEST POSITION. HOB ELEVATED. WILL CONT TO MONITOR .
[2021-04-01] MEDS: CHLORHEXIDINE GLUCONATE 15 ML UDC MM SCH ×2 (08:27→20:07)
[2021-04-01] MEDS: LEVETIRACETAM SOL (5 ML) 100 MG/ML UDC GT SCH ×2 (08:28→20:07)
[2021-04-01] MEDS: PANTOPRAZOLE 40 MG/PACK PACK GT SCH (08:28)
[2021-04-01] MEDS: CINACALCET HCL 30 MG TABLET GT SCH (08:28)
[2021-04-01] MEDS: SODIUM BICARBONATE 650 MG TABLET PEG SCH ×2 (08:28→16:31)
[2021-04-01] MEDS: THIAMINE HCL 100 MG TABLET GT SCH (08:29)
[2021-04-01] MEDS: GABAPENTIN 100 MG CAPSULE GT SCH ×3 (08:29→16:31)
[2021-04-01] MEDS: FLUDROCORTISONE 0.1 MG TABLET GT SCH (08:29)
[2021-04-01] MEDS: MIDODRINE HCL (5MG) 5 MG TABLET GT SCH ×3 (08:29→16:31)
[2021-04-01] MEDS: LEVOTHYROXINE INJ 100 MCG VIAL IV SCH (08:30)
[2021-04-01] MEDS: MEROPENEM 1 G in IV NS 0.9% 100 ML IV SCH ×2 (08:30→21:10)
[2021-04-01] MEDS: LIOTHYRONINE SODIUM (25 MCG) 25 MCG TABLET GT SCH (08:30)
--- NOTE | 2021-04-01 12:00 | NUR ---
RN NOTES TRACH CARE DONE, PT STILL ON LEVO DRIP, CONTINUE TO MONITOR.
[2021-04-01] MEDS: JEVITY 1.2 CAL 1,000 ML BOTTLE GT PRN (12:20)
[2021-04-01] MEDS: POTASSIUM CL. PREMIX PERIPHER. 50 ML IV SCH ×2 (12:20→13:30)
--- NOTE | 2021-04-01 14:00 | NUR ---
RN NOTES DR EVERETT NOTIFIED REGARDING GRAM NEGATIVE RODS IN THE URINE .
[2021-04-01] MEDS: IV 1/2NS 1000 ML 1,000 ML IV PRN (16:23)
[2021-04-01] MEDS: THERAHONEY GEL 1.5 OZ TUBE TP PRN (16:32)
--- NOTE | 2021-04-01 18:17 | NUR ---
RN NOTES NO SIGNIFICANT CHANGES NOTED ON THIS SHIFT, PT ON LEVO AT .05 MCG/KG/MIN , TOLERAING VENT SETTING WELL, SR UP x3, CALL LIGHT WITHIN EASY REACH, BED LOCKED AND IN LOWEST POSITION, WILL ENDORSE TO SUPERVISING FIRE MARSHAL NURSE FOR CONTINUITY OF CARE.
--- NOTE | 2021-04-01 19:00 | NUR ---
RN NOTE REPORT RECEIVED FROM DAVID SCHNEIDER, PATIENT IN BED, OPENS EYES, AROUSABLE, IN NO S/SX OF ACUTE DISTRESS AT THIS TIME. ON TRACH SHILEY#6 CONNECTED TO MECHANICAL VENT WITH SETTINGS PRESCRIBED: AC 12, TV 400, FIO2 30%, PEEP 0, SATURATION AT 100%, SR ON THE MONITOR, HR IS 63. NOTED IV SITE AT RFA 20G, LFA 20G AND MIGUEL PICC LINE, ALL HUBS PATENT AND FLUSHING WELL, NO S/S OF INFECTION OR INFILTRATION, WITH IV FLUID OF 0.45 NS INFUSING AT 125 ML/HR, AND LEVOPHED AT DOSE RATE OF 0.5 MCG/KG/MIN. NOTED GTUBE INTACT POSITIVE PLACEMENT NOTED, MINIMAL RESIDUAL, WITH TUBE FEEDING OF JEVITY 1.2 AT 30 ML/HR. ZARATE CATHETER CONNECTED TO URINE BAG IN PLACE, DRAINING TO A CLEAR YELLOW OUTPUT. NOTED BUE AND BLE CONTRACTED. SAFETY MEASURES IMPLEMENTED. PATIENT BED ALARM IS ON. HEAD OF BED ELEVATED. BED IS LOCKED, IN LOWEST POSITION AND SIDE RAILS UP. CALL LIGHT WITHIN REACH OF THE PATIENT. WILL CONTINUE TO MONITOR AND REASSESS FOR ANY CHANGES. Addendum: 04/01/21 at 2143 by RADHA PA RN ERRATUM: LEVOPHED INFUSING AT 0.05 MCG/KG/MIN
[2021-04-01] MEDS: VANCOMYCIN 1 GM in IV D5W 250 ML IV SCH (20:07)
[2021-04-01] MEDS: ENOXAPARIN SODIUM 30 MG/0.3 ML DISP.SYRIN SQ SCH (21:10)
[2021-04-02] VITALS (98 sets, daily range): BP systolic 79–133; BP diastolic 34–84
[2021-04-02] MEDS: HYDROCORTISONE SOD SUCCINATE 100 MG/2 ML VIAL IV SCH ×3 (04:29→20:51)
[2021-04-02] MEDS: IV 1/2NS 1000 ML 1,000 ML IV PRN ×3 (04:30→23:51)
--- NOTE | 2021-04-02 07:30 | NUR ---
RN NOTES PT FOUND IN SEMI GODWIN'S POSITION DISPLAYING NO S/S OF DISTRESS, FLACC = 0 AND BILATERAL RISE AND FALL OF THE CHEST IS OBSERVED.TRACH VENT SETTINGS SET PER MD ORDER. ZARATE CATH IS BELOW PATIENT AND DRAINING BY GRAVITY. L UA PICC IS PATIENT AND INTACT. VSS, RN WILL MONITOR AND TREAT THROUGHOUT SHIFT. SAFETY MEASURES IN PLACE, BED LOCKED AND IN LOWEST POSITION, SIDE RAILS UPX2, CALL LIGHT WITHIN REACH, BED ALARM ARMED.
[2021-04-02] MEDS: LIOTHYRONINE SODIUM (25 MCG) 25 MCG TABLET GT SCH (07:38)
[2021-04-02] MEDS: LEVOTHYROXINE INJ 100 MCG VIAL IV SCH (07:39)
[2021-04-02] MEDS: MEROPENEM 1 G in IV NS 0.9% 100 ML IV SCH ×2 (08:35→20:50)
[2021-04-02] MEDS: CHLORHEXIDINE GLUCONATE 15 ML UDC MM SCH ×2 (08:35→20:53)
[2021-04-02] MEDS: THIAMINE HCL 100 MG TABLET GT SCH (08:38)
[2021-04-02] MEDS: LEVETIRACETAM SOL (5 ML) 100 MG/ML UDC GT SCH ×2 (08:38→20:55)
[2021-04-02] MEDS: SODIUM BICARBONATE 650 MG TABLET PEG SCH ×2 (08:38→17:34)
[2021-04-02] MEDS: GABAPENTIN 100 MG CAPSULE GT SCH ×3 (08:38→17:34)
[2021-04-02] MEDS: FLUDROCORTISONE 0.1 MG TABLET GT SCH (08:38)
[2021-04-02] MEDS: CINACALCET HCL 30 MG TABLET GT SCH (08:38)
[2021-04-02] MEDS: PANTOPRAZOLE 40 MG/PACK PACK GT SCH (08:39)
[2021-04-02] MEDS: MIDODRINE HCL (5MG) 5 MG TABLET GT SCH ×3 (08:40→17:35)
[2021-04-02] MEDS: NOREPINEPHRINE 8 MG in IV NS 0.9% 242 ML IV PRN (08:58)
[2021-04-02 09:44] LABS: BASOPHILS % (AUTO) 0.1 % (0.0-2.0); LYMPHOCYTES % (AUTO) 6.4 % (20.0-44.0); MEAN CORPUSCULAR HGB CONC 32 g/dl (31.0-36.0); MEAN CORPUSCULAR VOLUME 96 fL (80-96); MONOCYTES # (AUTO) 0.4 K/uL (0.1-1.30); MONOCYTES % (AUTO) 2.8 % (2.0-12.0); NEUTROPHILS # (AUTO) 14.4 K/uL (1.8-8.9); NEUTROPHILS % (AUTO) 90.7 % (43.0-81.0); PLATELET COUNT (AUTO) 482 K/uL (150-450); WHITE BLOOD COUNT (AUTO) 15.8 K/uL (4.3-11.0)
[2021-04-02 09:56] LABS: RED BLOOD CELL COUNT(AUTO) 1.97 MIL/uL (4.5-6.0)
[2021-04-02 09:58] LABS: HEMATOCRIT 19 % (39-51); HEMOGLOBIN 6.1 g/dL (13.5-17.5)
[2021-04-02 09:59] LABS: CALCIUM, SERUM 6.1 mg/dL (8.5-10.1); CREATININE 2.1 mg/dL (0.6-1.3); MAGNESIUM 2.2 mg/dL (1.8-2.4); PHOSPHORUS 3.5 mg/dL (2.5-4.9); POTASSIUM 3.3 mmol/L (3.5-5.1)
--- NOTE | 2021-04-02 10:00 | NUR ---
CRITICAL LAB. CN INFORMED PRIMARY RN OF RECEIVED CRITICAL LAB VALUE, HGB IS 6.1 AND HCT IS 19. RN RELAYED INFORMATION TO JENNY SEYMOUR STUDENT TO MALACHI EVERETT WHOM WITH WHICH IMMEDIATELY CONTACTED. PROVIDER ACKNOWLEDGED CRITICAL LAB. WAITING ORDERS.
[2021-04-02 11:16] LABS: BAND % (MANUAL) 1 % (0.0-5.0); LYMPHOCYTES % (MANUAL) 3 % (16-48); MONOCYTES % (MANUAL) 5 % (0-11.0); NEUTROPHILS % (MANUAL) 91 (42-76)
--- NOTE | 2021-04-02 19:25 | NUR ---
RN NOTES PT FOUND IN SEMI GODWIN'S POSITION DISPLAYING NO S/S OF DISTRESS, FLACC = 0 AND BILATERAL RISE AND FALL OF THE CHEST IS OBSERVED.TRACH VENT SETTINGS SET PER MD ORDER. ZARATE CATH IS BELOW PATIENT AND DRAINING BY GRAVITY. L UA PICC IS PATIENT AND INTACT. VSS, SBAR AND REPORT GIVEN TO MANUFACTURING INTERN. SAFETY MEASURES IN PLACE, BED LOCKED AND IN LOWEST POSITION, SIDE RAILS UPX2, CALL LIGHT WITHIN REACH, BED ALARM ARMED. PT ENDORSED IN STABLE CONDITION FOR PREET, ALL QUESTIONS ANSWERED.
--- NOTE | 2021-04-02 19:29 | NUR ---
RT Notes Pt received trached on [facility] vent on settings AC mode, rate 12, VT 400, FIO2 30%. No signs of resp distress at this time. Airway patent and secured. AIRCRAFT SHIPPING CHECKER done. Pt suctioned. Alarms set and audible. Amububag at bedside. Vent plugged into red outlet. Will cont to monitor. Addendum: 04/02/21 at 2001 by DANIEL DAILY RT Amended: Links added.
[2021-04-02] MEDS: VANCOMYCIN 1 GM in IV D5W 250 ML IV SCH (20:00)
[2021-04-02] MEDS: ENOXAPARIN SODIUM 30 MG/0.3 ML DISP.SYRIN SQ SCH (20:59)
[2021-04-03] VITALS (80 sets, daily range): BP systolic 83–132; BP diastolic 37–82
--- NOTE | 2021-04-03 03:49 | NUR ---
RN notes: beginning of shift Patient is in bed, comfortably resting with eyes close. On Levo dirp at 0.02mcg/kg/hr, no adverse effect noted. On Jevity 1.2 @30mls/hr, tolerating well. 0 residual noted. GTube patent and intact. Cedeno catheter in place draining clear yellow with no foul odor urine. Patient is obtunded. No physical manifestation of pain or discomfort. Vital signs wnl. No distress noted. Breathing even and unlabored. Vent settings well tolerated. Will continue to monitor.
--- NOTE | 2021-04-03 03:57 | NUR ---
RN notes: end of shift No Significant change of condition. Vital signs remains wnl. Eyes opens without tracking No signs or symptoms of distress. Kept clean and dry. Will endorse to next shift for continuity of care.
[2021-04-03] MEDS: HYDROCORTISONE SOD SUCCINATE 100 MG/2 ML VIAL IV SCH ×3 (05:20→20:24)
[2021-04-03 06:00] LABS: HEMOGLOBIN 7.1 g/dL (13.5-17.5); MONOCYTES # (AUTO) 0.6 K/uL (0.1-1.30)
[2021-04-03 06:01] LABS: CREATININE 1.9 mg/dL (0.6-1.3); PHOSPHORUS 3.6 mg/dL (2.5-4.9); POTASSIUM 3.1 mmol/L (3.5-5.1)
[2021-04-03 06:22] LABS: CALCIUM, SERUM 5.3 mg/dL (8.5-10.1)
[2021-04-03 06:40] LABS: BASOPHILS % (AUTO) 0.1 % (0.0-2.0); HEMATOCRIT 22 % (39-51); LYMPHOCYTES % (AUTO) 7.8 % (20.0-44.0); MEAN CORPUSCULAR HGB CONC 33 g/dl (31.0-36.0); MEAN CORPUSCULAR VOLUME 93 fL (80-96); MONOCYTES % (AUTO) 4.8 % (2.0-12.0); NEUTROPHILS # (AUTO) 11.7 K/uL (1.8-8.9); NEUTROPHILS % (AUTO) 87.3 % (43.0-81.0); PLATELET COUNT (AUTO) 455 K/uL (150-450); RED BLOOD CELL COUNT(AUTO) 2.33 MIL/uL (4.5-6.0); WHITE BLOOD COUNT (AUTO) 13.4 K/uL (4.3-11.0)
[2021-04-03] MEDS: LIOTHYRONINE SODIUM (25 MCG) 25 MCG TABLET GT SCH (07:40)
[2021-04-03] MEDS: LEVOTHYROXINE INJ 100 MCG VIAL IV SCH (07:40)
[2021-04-03] MEDS: LEVETIRACETAM SOL (5 ML) 100 MG/ML UDC GT SCH ×2 (08:19→20:24)
[2021-04-03] MEDS: THIAMINE HCL 100 MG TABLET GT SCH (08:20)
[2021-04-03] MEDS: GABAPENTIN 100 MG CAPSULE GT SCH ×3 (08:20→16:52)
[2021-04-03] MEDS: MIDODRINE HCL (5MG) 5 MG TABLET GT SCH ×3 (08:20→16:52)
[2021-04-03] MEDS: CHLORHEXIDINE GLUCONATE 15 ML UDC MM SCH ×2 (08:20→20:24)
[2021-04-03] MEDS: SODIUM BICARBONATE 650 MG TABLET PEG SCH ×2 (08:20→16:52)
[2021-04-03] MEDS: PANTOPRAZOLE 40 MG/PACK PACK GT SCH (08:20)
[2021-04-03] MEDS: FLUDROCORTISONE 0.1 MG TABLET GT SCH (08:20)
[2021-04-03] MEDS: CINACALCET HCL 30 MG TABLET GT SCH (08:20)
[2021-04-03] MEDS: IV 1/2NS 1000 ML 1,000 ML IV PRN ×2 (08:21→17:29)
[2021-04-03] MEDS: MEROPENEM 1 G in IV NS 0.9% 100 ML IV SCH ×2 (09:24→21:57)
[2021-04-03] MEDS ORDERED: POTASSIUM CHLORIDE 20 MEQ POWDER PACKET GT SCH (10:00)
[2021-04-03 12:24] LABS: BAND % (MANUAL) 2 % (0.0-5.0); LYMPHOCYTES % (MANUAL) 8 % (16-48); MONOCYTES % (MANUAL) 4 % (0-11.0); MYELOCYTES % 1 % (0-0); NEUTROPHILS % (MANUAL) 85 (42-76)
[2021-04-03] MEDS: JEVITY 1.2 CAL 1,000 ML BOTTLE GT PRN (18:50)
--- NOTE | 2021-04-03 19:15 | NUR ---
RN NOTES PT FOUND IN SEMI GDOWIN'S POSITION DISPLAYING NO S/S OF DISTRESS, FLACC = 0 AND BILATERAL RISE AND FALL OF THE CHEST IS OBSERVED.TRACH VENT SETTINGS SET PER MD ORDER. ZARATE CATH IS BELOW PATIENT AND DRAINING BY GRAVITY. L UA PICC IS PATIENT AND INTACT. WOUND CARE DONE PER ORDER. VSS, SBAR AND REPORT GIVEN TO RADIATION PROTECTION SPECIALIST. SAFETY MEASURES IN PLACE, BED LOCKED AND IN LOWEST POSITION, SIDE RAILS UPX2, CALL LIGHT WITHIN REACH, BED ALARM ARMED. PT ENDORSED IN STABLE CONDITION FOR PREET. ALL QUESTIONS ANSWERED.
--- NOTE | 2021-04-03 19:30 | NUR ---
RN NOTES PT RECEIVED IN BED IN SEMI GODWIN'S POSITION. PT IS TRACH/VENT WITH SETTINGS AT S#6, AC:12, TV: 400, FIO2:30%. PT IS OBTUNDED/NON-VERBAL. PT IS CURRENTLY NSR ON MONITOR. ZARATE CATH NOTED. JEVITY 1.2 RUNNING AT 30 ML/HR. PT TOLERATING WELL WITH NO RESIDUAL NOTED. IV ACCESS NOTED ON LEFT AND RIGHT FOREARM #20 AND LEFT UPPER ARM PICC LINE. IV LINES FLUSHED, PATENT, AND INTACT WITH NO SIGNS OF INFILTRATION. ALL SAFETY MEASURES IMPLEMENTED. BED ALARM ON. BED LOCKED AND IN LOWEST POSITION. WILL CONTINUE TO MONITOR AND ASSESS FOR ANY CHANGES.
--- NOTE | 2021-04-03 19:38 | NUR ---
RN NOTE SPOKE WITH DR. XAVIER ABOUT PT'S LOW HG OF 7.1 AND PREVIOUS HG OF 6.1 DR. XAVIER ORDERED TO HOLD LOVENOX FOR THE NIGHT. ORDER NOTED AND CARRIED OUT.
--- NOTE | 2021-04-03 19:52 | NUR ---
RT Notes Pt received trached on [facility] vent on settings AC mode, rate 12, VT 400, FIO2 30%. No signs of resp distress at this time. Airway patent and secured. LIFE UNDERWRITER done. Pt suctioned. Alarms set and audible. Amububag at bedside. Vent plugged into red outlet. Will cont to monitor throughout shift. Addendum: 04/03/21 at 2027 by DANIEL DAILY RT Amended: Links added.
[2021-04-03] MEDS: VANCOMYCIN 1 GM in IV D5W 250 ML IV SCH (20:23)
[2021-04-03] MEDS: ENOXAPARIN SODIUM 30 MG/0.3 ML DISP.SYRIN SQ SCH (21:00)
--- NOTE | 2021-04-03 22:05 | NUR ---
RN NOTE HOLDING 0.45% NS UNTIL MERREM IS COMPLETED DUE TO INCOMPATIBILITY.
[2021-04-04] VITALS (44 sets, daily range): BP systolic 87–126; BP diastolic 49–66
[2021-04-04 04:49] LABS: EOSINOPHILS % (AUTO) 0.1 % (0.0-6.0); HEMATOCRIT 24 % (39-51); HEMOGLOBIN 7.7 g/dL (13.5-17.5); LYMPHOCYTES % (AUTO) 8.2 % (20.0-44.0); MEAN CORPUSCULAR HGB CONC 33 g/dl (31.0-36.0); MEAN CORPUSCULAR VOLUME 94 fL (80-96); MONOCYTES # (AUTO) 0.6 K/uL (0.1-1.30); NEUTROPHILS # (AUTO) 10.7 K/uL (1.8-8.9); NEUTROPHILS % (AUTO) 86.7 % (43.0-81.0); PLATELET COUNT (AUTO) 425 K/uL (150-450); RED BLOOD CELL COUNT(AUTO) 2.52 MIL/uL (4.5-6.0); WHITE BLOOD COUNT (AUTO) 12.4 K/uL (4.3-11.0)
[2021-04-04 05:04] LABS: PHOSPHORUS 4.1 mg/dL (2.5-4.9); POTASSIUM 3.8 mmol/L (3.5-5.1)
[2021-04-04] MEDS: HYDROCORTISONE SOD SUCCINATE 100 MG/2 ML VIAL IV SCH ×3 (05:28→21:28)
[2021-04-04] MEDS: IV 1/2NS 1000 ML 1,000 ML IV PRN ×2 (05:29→15:31)
--- NOTE | 2021-04-04 06:58 | NUR ---
RN NOTES NO CHANGES IN PT CONDITION DURING SHIFT. PT IS TRACH/VENT WITH SETTINGS AT S#6, AC:12, TV: 400, FIO2:30%. TOLERATING VENT SETTINGS WELL. PT IS OBTUNDED/NON-VERBAL. PT IS NSR-SB ON CRYOLITE RECOVERY OPERATOR. 5225ML OUTPUT NOTED FROM ZARATE CATH. JEVITY 1.2 RUNNING AT 30 ML/HR. PT TOLERATING WELL. IV ACCESS NOTED ON LEFT AND RIGHT FOREARM #20 AND LEFT UPPER ARM PICC LINE. IV LINES FLUSHED, PATENT, AND INTACT WITH NO SIGNS OF INFILTRATION. ALL DUE MEDS GIVEN ORDERED. PT KEPT CLEAN AND COMFORTABLE. ALL SAFETY MEASURES IMPLEMENTED. BED ALARM ON. BED LOCKED AND IN LOWEST POSITION. WILL ENDORSE TO MORNING SHIFT RN FOR PREET.
--- NOTE | 2021-04-04 07:40 | NUR ---
ICU/RN PT IS ON THE VENT ,CHRONIC TRACH ,AC MODE,FIO2-30%,SAT O2-98%,V/S STABLE ,AFEBRILE.OFF LEVOPHED DRIP.LEFT UPPER ARM PICC LINE.IV FLUIDS INFUSING ORDERED.G-TUBE INFUSING WITH JEVITY ,NO RESIDUAL NOTED.F/C DRAINING WITH YELLOW URINE.PT OPEN HIS EYES,REACTIVE ON PAIN STIMULATION.VEGETATIVE STATE.MULTIPLY WOUNDS NOTED ALL OVER THE BODY COVERED WITH DRESSING.LABS REVIEW.MD NOTIFIED.SUCTION PROVIDED.REPOSITION FOR COMFORT.
[2021-04-04] MEDS: MEROPENEM 1 G in IV NS 0.9% 100 ML IV SCH ×2 (09:27→21:28)
[2021-04-04] MEDS: PANTOPRAZOLE 40 MG/PACK PACK GT SCH (09:28)
[2021-04-04] MEDS: SODIUM BICARBONATE 650 MG TABLET PEG SCH ×2 (09:30→17:48)
[2021-04-04] MEDS: LEVETIRACETAM SOL (5 ML) 100 MG/ML UDC GT SCH ×2 (09:30→21:28)
[2021-04-04] MEDS: CHLORHEXIDINE GLUCONATE 15 ML UDC MM SCH ×2 (09:30→21:28)
--- NOTE | 2021-04-04 09:30 | NUR ---
ICU/RN DUE MEDS ARE GIVEN ORDERED.
[2021-04-04] MEDS: CINACALCET HCL 30 MG TABLET GT SCH (09:31)
[2021-04-04] MEDS: GABAPENTIN 100 MG CAPSULE GT SCH ×3 (09:31→17:48)
[2021-04-04] MEDS: FLUDROCORTISONE 0.1 MG TABLET GT SCH (09:31)
[2021-04-04] MEDS: MIDODRINE HCL (5MG) 5 MG TABLET GT SCH ×3 (09:31→17:48)
[2021-04-04] MEDS: LIOTHYRONINE SODIUM (25 MCG) 25 MCG TABLET GT SCH (09:32)
[2021-04-04] MEDS: THIAMINE HCL 100 MG TABLET GT SCH (10:01)
[2021-04-04] MEDS: LEVOTHYROXINE INJ 100 MCG VIAL IV SCH (10:12)
--- NOTE | 2021-04-04 17:30 | NUR ---
ICU/RN PM CARE PROVIDED.WOUND DRESSING DONE ORDERED.DUE MEDS ARE GIVEN .SUCTION PROVIDED.REPOSITION FOR COMFORT.OK TO TRANSFER TO TELE UNIT.KEEP SBP MORE THEN 80..WAITING FOR THE BED.
[2021-04-04] MEDS: JEVITY 1.2 CAL 1,000 ML BOTTLE GT PRN (18:13)
--- NOTE | 2021-04-04 19:10 | NUR ---
ICU/RN PT TRANSFERRED TO [facility]IT IN STABLE CONDITION.REPORT GIVEN TO VENKAT/WYATT.
--- NOTE | 2021-04-04 19:30 | NUR ---
RN NOTE RECEIVED PATIENT FROM ICU, TRANSFERRED TO ROOM 104. PATIENT OBTUNDED, ON TRACH TO VENT TOLERATING SETTINGS WELL S#6, AC 12, TV 400 FIO2 30% PEEP 0. ZARATE CATH PATENT AND INTACT, DRAINING URINE VIA GRAVITY. ON G-TUBE RUNNING JEVITY 1.2 @ 30ML/HR. NO RESIDUAL NOTED. IV ACCESS LEFT FA #20, RIGHT FA #20, AND MIGUEL PICC INFUSING 1/2 NS @ 125ML/HR. NO S/S OF INFILTRATION. BED LOCKED AND IN LOWEST POSITION. CALL LIGHT WITHIN REACH. ALL NEEDS ANTICIPATED.
[2021-04-04] MEDS: VANCOMYCIN 1 GM in IV D5W 250 ML IV SCH (19:45)
--- NOTE | 2021-04-04 21:20 | NUR ---
RN NOTE NOTIFIED JUANY XAVIER PATIENT HGB 7.7 HCT 24 AND HAS LOVENOX 30MG ORDER. WITH ORDERS TO GIVE IF NO S/S OF BLEEDING AND NO CHANGES TO HGB. NO S/S OF ANY BLEEDING NOTED. HGB TRENDING IN EXPECTED DIRECTION.
[2021-04-04] MEDS: ENOXAPARIN SODIUM 30 MG/0.3 ML DISP.SYRIN SQ SCH (21:29)
--- NOTE | 2021-04-04 21:32 | NUR ---
RT Note Pt received [facility] vent on settings AC 12, 400, FIO2 30% No PEEP. No s/s of acute resp distress at this time. Airway patent and secured. PLANETARIUM TECHNICIAN done. Pt suctioned. Alarms set and audible. Amububag/ b.u trach at bedside. Vent plugged into red outlet. cont. pulse ox on. Will cont to monitor t/o shift.
[2021-04-05] VITALS: BP 92/57
[2021-04-05] MEDS: IV 1/2NS 1000 ML 1,000 ML IV PRN ×2 (03:38→16:49)
[2021-04-05 04:00] VITALS: BP 100/77
[2021-04-05] MEDS: HYDROCORTISONE SOD SUCCINATE 100 MG/2 ML VIAL IV SCH ×3 (04:47→21:08)
--- NOTE | 2021-04-05 06:35 | NUR ---
RN NOTE PATIENT OBTUNDED, ON TRACH TO VENT TOLERATING SETTINGS WELL S#6, AC 12, TV 400 FIO2 30% PEEP 0. O2 SAT 100%. ZARATE CATH PATENT AND INTACT, DRAINING URINE VIA GRAVITY 1300 OUTPUT. G-TUBE RUNNING JEVITY 1.2 @ 30ML/HR, NO RESIDUAL NOTED. IV ACCESS LEFT FA #20, RIGHT FA #20, AND MIGUEL PICC INFUSING 1/2 NS @ 125ML/HR. NO S/S OF INFILTRATION. TURNED AND REPOSITIONED. TOLERATED BED BATH WELL. BED LOCKED AND IN LOWEST POSITION. CALL LIGHT WITHIN REACH. WILL ENDORSE TO AM SHIFT.
[2021-04-05 07:24] LABS: EOSINOPHILS % (AUTO) 0.1 % (0.0-6.0); HEMATOCRIT 26 % (39-51); HEMOGLOBIN 8.7 g/dL (13.5-17.5); LYMPHOCYTES # (AUTO) 1.1 K/uL (0.8-4.8); LYMPHOCYTES % (AUTO) 8.8 % (20.0-44.0); MEAN CORPUSCULAR HGB CONC 34 g/dl (31.0-36.0); MEAN CORPUSCULAR VOLUME 94 fL (80-96); MONOCYTES # (AUTO) 0.8 K/uL (0.1-1.30); MONOCYTES % (AUTO) 6.1 % (2.0-12.0); NEUTROPHILS # (AUTO) 10.6 K/uL (1.8-8.9); PLATELET COUNT (AUTO) 407 K/uL (150-450); RED BLOOD CELL COUNT(AUTO) 2.75 MIL/uL (4.5-6.0); WHITE BLOOD COUNT (AUTO) 12.5 K/uL (4.3-11.0)
--- NOTE | 2021-04-05 07:30 | NUR ---
MACHINE PIE MAKER NOTES RECEIVED PT IN BED ON VENT, O2 SATURATION 100%, HR 68, WITH JEVITY 1.2 RUNNING @30ML/HR AND 1/2 NS RUNNING@125 ML/HR IN MIGUEL PICC LINE. SAFETY MEASURES IN PLACE WITH BED IN LOWEST LOCKED POSITION, SIDE RAILS UP X3, AND BED ALARM ON.
[2021-04-05 07:48] LABS: CREATININE 1.7 mg/dL (0.6-1.3); MAGNESIUM 2.2 mg/dL (1.8-2.4); POTASSIUM 3.4 mmol/L (3.5-5.1)
[2021-04-05 08:00] VITALS: BP 119/65
[2021-04-05] MEDS: MEROPENEM 1 G in IV NS 0.9% 100 ML IV SCH ×2 (08:14→21:08)
[2021-04-05] MEDS: PANTOPRAZOLE 40 MG/PACK PACK GT SCH (08:15)
[2021-04-05] MEDS: FLUDROCORTISONE 0.1 MG TABLET GT SCH (08:15)
[2021-04-05] MEDS: CINACALCET HCL 30 MG TABLET GT SCH (08:15)
[2021-04-05] MEDS: MIDODRINE HCL (5MG) 5 MG TABLET GT SCH ×3 (08:15→16:47)
[2021-04-05] MEDS: THIAMINE HCL 100 MG TABLET GT SCH (08:15)
[2021-04-05] MEDS: CHLORHEXIDINE GLUCONATE 15 ML UDC MM SCH ×2 (08:15→21:08)
[2021-04-05] MEDS: GABAPENTIN 100 MG CAPSULE GT SCH ×3 (08:15→16:47)
[2021-04-05] MEDS: SODIUM BICARBONATE 650 MG TABLET PEG SCH ×2 (08:15→16:47)
[2021-04-05] MEDS: LEVETIRACETAM SOL (5 ML) 100 MG/ML UDC GT SCH ×2 (09:27→21:08)
[2021-04-05] MEDS: LIOTHYRONINE SODIUM (25 MCG) 25 MCG TABLET GT SCH (09:27)
[2021-04-05] MEDS: LEVOTHYROXINE INJ 100 MCG VIAL IV SCH (09:29)
[2021-04-05] MEDS ORDERED: POTASSIUM CL. PREMIX PERIPHER. 50 ML IV SCH (10:00)
[2021-04-05 12:00] VITALS: BP 115/62
[2021-04-05 12:23] LABS: LYMPHOCYTES % (MANUAL) 7 % (16-48); MONOCYTES % (MANUAL) 5 % (0-11.0); MYELOCYTES % 4 % (0-0); NEUTROPHILS % (MANUAL) 84 (42-76)
[2021-04-05] MEDS: ACETAMINOPHEN 650 MG/SUPP.RECT RC PRN (12:34)
[2021-04-05 16:00] VITALS: BP 106/60
--- NOTE | 2021-04-05 18:50 | NUR ---
ECONOMIC DEVELOPMENT MANAGER NOTES PT HAD MINIMAL OUTPUT ON SHIFT. FLUSH ZARATE AND URINE APPEARS TO HAVE SEDIMENTS. BP STABLE DURING SHIFT. GAVE TYLENOL @1300 FOR 99.3 TEMP, NORMAL TEMP @1600. SAFETY MEASURES IN PLACE WITH BED IN LOWEST LOCKED POSITION.
--- NOTE | 2021-04-05 19:35 | NUR ---
RN NOTES PT RECEIVED IN BED. PT IS TRACH/VENT WITH SETTINGS AT S#6, AC:12, TV: 400, FIO2:30%, AND PEEP:0. PT IS OBTUNDED/NON-VERBAL. PT ON TELE MONITOR SHOWING NSR. ZARATE CATH NOTED. JEVITY 1.2 RUNNING AT 30 ML/HR. PT TOLERATING WELL. NO RESIDUAL NOTED. IV ACCESS NOTED ON LEFT FA #20 AND RIGHT FA #20 AND LEFT UPPER ARM PICC LINE. IV LINES FLUSHED, PATENT, AND INTACT WITH NO SIGNS OF INFILTRATION. ALL SAFETY MEASURES IMPLEMENTED. BED ALARM ON. BED LOCKED AND IN LOWEST POSITION. SIDE RAILS UP X2. WILL CONTINUE TO MONITOR AND ASSESS FOR ANY CHANGES THROUGHOUT THE SHIFT.
[2021-04-05 20:00] VITALS: BP 108/62
[2021-04-05] MEDS: Sodium Bicarbonate 50 MEQ in IV 1/2NS 1000 ML 1,000 ML IV SCH (20:07)
--- NOTE | 2021-04-05 20:17 | NUR ---
RT NOTE PT RECEIVED TRACHED ON MECHANICAL VENTILATION. PT IS AWAKE. CUFF CHECKED VIA SUSTAINABLE DEVELOPMENT POLICY ANALYST. AMBU BAG @ BEDSIDE. SX DONE, TRACH SECURED AND PATENT. YELLOW SECRETIONS NOTED. VENT PLUGGED TO RED OUTLET. ALARMS ON AND AUDIBLE. NO RESPIRATORY DISTRESS NOTED AT THIS TIME. WILL MONITOR CLOSELY. CONT. PULSE OX CONNECTED. Addendum: 04/05/21 at 2017 by MICHAEL WILSON RT Amended: Links added.
[2021-04-05] MEDS: ENOXAPARIN SODIUM 30 MG/0.3 ML DISP.SYRIN SQ SCH (21:10)
--- NOTE | 2021-04-05 21:10 | NUR ---
WYATT NOTE HOLDING LOVENOX FOR THE NIGHT DUE TO PT GOING TO PROCEDURE TOMORROW MORNING FOR WOUND DEBRIDEMENT. Addendum: 04/05/21 at 1 by MACKENZIE GUERRA RN RAFA HAGEN
--- NOTE | 2021-04-05 21:11 | NUR ---
RN NOTE HOLDING 1/2 NS FOR NOW UNTIL MERREM IS COMPLETED DUE TO INCOMPATIBILITY.
--- NOTE | 2021-04-05 23:05 | NUR ---
RN NOTE TELEPHONE CONSENT GIVEN BY DIANNA FOR WOUND DEBRIDEMENT OF SACRUM IN AM.
[2021-04-06] VITALS: BP 117/66
[2021-04-06 04:00] VITALS: BP 128/79
[2021-04-06] MEDS: HYDROCORTISONE SOD SUCCINATE 100 MG/2 ML VIAL IV SCH ×3 (05:11→21:34)
--- NOTE | 2021-04-06 06:33 | NUR ---
RN NOTES NO CHANGES IN PT CONDITION DURING SHIFT. BP WNL. VSS. PT IS TRACH/VENT WITH SETTINGS AT S#6, AC:12, TV: 400, FIO2:30%, AND PEEP:0. TOLERATING VENT SETTINGS WELL. ON TELE MONITOR SHOWING NSR AND AT TIMES SB. 1600 ML OUTPUT FROM ZARATE CATH. JEVITY 1.2 RUNNING AT 30 ML/HR. PT TOLERATING WELL. IV ACCESS NOTED ON LEFT FA #20 AND LEFT UPPER ARM PICC LINE. IV LINES FLUSHED, PATENT, AND INTACT WITH NO SIGNS OF INFILTRATION. ALL DUE MEDS GIVEN ORDERED. PT KEPT CLEAN AND COMFORTABLE. ALL SAFETY MEASURES IMPLEMENTED. BED ALARM ON. BED LOCKED AND IN LOWEST POSITION. SIDE RAILS UP. WILL ENDORSE TO MORNING SHIFT RN FOR PREET.
[2021-04-06 06:39] LABS: BASOPHILS % (AUTO) 0.1 % (0.0-2.0); EOSINOPHILS % (AUTO) 0.5 % (0.0-6.0); HEMATOCRIT 27 % (39-51); HEMOGLOBIN 8.8 g/dL (13.5-17.5); LYMPHOCYTES # (AUTO) 1.5 K/uL (0.8-4.8); LYMPHOCYTES % (AUTO) 10.7 % (20.0-44.0); MEAN CORPUSCULAR HGB CONC 33 g/dl (31.0-36.0); MEAN CORPUSCULAR VOLUME 94 fL (80-96); MONOCYTES # (AUTO) 0.9 K/uL (0.1-1.30); MONOCYTES % (AUTO) 6.5 % (2.0-12.0); NEUTROPHILS # (AUTO) 11.4 K/uL (1.8-8.9); NEUTROPHILS % (AUTO) 82.2 % (43.0-81.0); PLATELET COUNT (AUTO) 413 K/uL (150-450); RED BLOOD CELL COUNT(AUTO) 2.85 MIL/uL (4.5-6.0); WHITE BLOOD COUNT (AUTO) 13.9 K/uL (4.3-11.0)
[2021-04-06 07:11] LABS: CREATININE 1.6 mg/dL (0.6-1.3); MAGNESIUM 2.1 mg/dL (1.8-2.4); PHOSPHORUS 4.4 mg/dL (2.5-4.9); POTASSIUM 3.2 mmol/L (3.5-5.1)
--- NOTE | 2021-04-06 07:29 | NUR ---
RN NOTE PATIENT IS IN BED WITH HOB AT SEMI FOWLERS POSITION. PATIENT IS OBTUNDED. GTUBE IS IN PLACE AND POSITIVE FOR PLACEMENT. LFA 20 AND MIGUEL PICC ARE PATENT AND INTACT. BED IS LOCKED IN THE LOWEST POSITION, 3 GUARD RAILS RAISED, CALL SMITH WITHIN REACH, AND ALL HOSPITAL SAFETY PRECAUTIONS ARE BEING FOLLOWED. WILL CONTINUE TO MONITOR THROUGHOUT SHIFT.
[2021-04-06 08:00] VITALS: BP 126/70
[2021-04-06] MEDS: LIOTHYRONINE SODIUM (25 MCG) 25 MCG TABLET GT SCH (08:56)
[2021-04-06] MEDS: CINACALCET HCL 30 MG TABLET GT SCH (08:56)
[2021-04-06] MEDS: LEVETIRACETAM SOL (5 ML) 100 MG/ML UDC GT SCH ×2 (08:56→21:34)
[2021-04-06] MEDS: THIAMINE HCL 100 MG TABLET GT SCH (08:57)
[2021-04-06] MEDS: LEVOTHYROXINE INJ 100 MCG VIAL IV SCH (08:57)
[2021-04-06] MEDS: CHLORHEXIDINE GLUCONATE 15 ML UDC MM SCH ×2 (08:57→21:34)
[2021-04-06] MEDS: GABAPENTIN 100 MG CAPSULE GT SCH ×3 (08:58→16:36)
[2021-04-06] MEDS: PANTOPRAZOLE 40 MG/PACK PACK GT SCH (08:58)
[2021-04-06] MEDS: FLUDROCORTISONE 0.1 MG TABLET GT SCH (08:58)
[2021-04-06] MEDS: MIDODRINE HCL (5MG) 5 MG TABLET GT SCH ×3 (08:58→16:35)
[2021-04-06] MEDS: SODIUM BICARBONATE 650 MG TABLET PEG SCH ×2 (08:58→16:36)
[2021-04-06] MEDS: THERAHONEY GEL 1.5 OZ TUBE TP SCH (08:59)
[2021-04-06] MEDS: MEROPENEM 1 G in IV NS 0.9% 100 ML IV SCH ×2 (09:01→21:35)
[2021-04-06] MEDS: Sodium Bicarbonate 50 MEQ in IV 1/2NS 1000 ML 1,000 ML IV SCH ×2 (09:20→14:59)
--- NOTE | 2021-04-06 09:20 | NUR ---
RN NOTE NA BICARB NON ADMIN DUE TO CURRENT BAG STILL RUNNING. PHARMACY NOTIFIED AND WILL ADJUST SCHEDULED TIME.
[2021-04-06 09:23] LABS: LYMPHOCYTES % (MANUAL) 14 % (16-48); MONOCYTES % (MANUAL) 8 % (0-11.0); NEUTROPHILS % (MANUAL) 78 (42-76)
[2021-04-06] MEDS: JEVITY 1.2 CAL 1,000 ML BOTTLE GT PRN (10:53)
[2021-04-06] MEDS ORDERED: POTASSIUM CHLORIDE 20 MEQ POWDER PACKET GT ONE (11:00)
[2021-04-06 12:00] VITALS: BP 105/54
[2021-04-06 16:00] VITALS: BP 120/57
--- NOTE | 2021-04-06 18:28 | NUR ---
RN NOTE PATIENT IS IN BED WITH HOB AT SEMI FOWLERS POSITION. PATIENT IS OBTUNDED. GTUBE IS IN PLACE AND POSITIVE FOR PLACEMENT. LFA 20 AND MIGUEL PICC ARE PATENT AND INTACT. BED IS LOCKED IN THE LOWEST POSITION, 3 GUARD RAILS RAISED, CALL SMITH WITHIN REACH, AND ALL HOSPITAL SAFETY PRECAUTIONS ARE BEING FOLLOWED. ALL DUE MEDS GIVEN AND PATIENT REMAINED STABLE THROUGHOUT SHIFT. WILL ENDORSE TO CLINICAL SECRETARY RN.
--- NOTE | 2021-04-06 19:30 | NUR ---
RN NOTE RECEIVED PATIENT IN BED, OBTUNDED. ON MECHANICAL VENT: LISA #6 AC 12 TV 400 FIO2 30 PEEP 0. RESPIRATIONS AR EVEN AND UNLABORED. NO S/S SOB NOTED. NO S/S PAIN NOTED. TELE MONITOR READS SINUS BRANDON HR 54. IN NO APPARENT DISTRESS. IV ACCESS IN LFA#20 AND MIGUEL PICC LINE RUNNING NA BICARD@75ML/HR. GTUBE PRESENT, NO RESIDUAL, RUNNING JEVITY @30. BED IS LOW AND LOCKED, HOB ELEVATED IN SEMI FOWLERS, SIDE RIALS UP X3, CALL LIGHT WITHIN REACH. FAMILY AT BEDSIDE.
[2021-04-06 20:00] VITALS: BP 107/69
[2021-04-06] MEDS ORDERED: VANCOMYCIN 1 GM in IV D5W 250 ML IV SCH (20:00)
[2021-04-06] MEDS: ENOXAPARIN SODIUM 30 MG/0.3 ML DISP.SYRIN SQ SCH (21:36)
--- NOTE | 2021-04-06 23:29 | NUR ---
SWITCHMAN SUPERVISOR OF CARE REPORT GIVEN TO RADHA SCHNEIDER FOR CONTINUATION OF CARE.
--- NOTE | 2021-04-06 23:30 | NUR ---
RN NOTE REPORT RECEIVED FROM LUBNA SCHNEIDER, PATIENT IN BED, OBTUNDED, OPENS EYES, IN NO S/SX OF ACUTE DISTRESS AT THIS TIME. ON TRACH SHILEY #6 CONNECTED TO MECHANICAL VENT WITH SETTINGS PRESCRIBED: AC 12, TV 400, FIO2 30%, PEEP 0, SATURATION AT 100%, SR ON THE MONITOR, HR IS 67. NOTED IV SITE AT LFA 20G, AND MIGUEL PICC LINE, ALL HUBS PATENT AND FLUSHING WELL, NO S/S OF INFECTION WITH 1/2 NS WITH SODIUM BICARD INFUSING AT 75 ML/HR. NOTED GTUBE INTACT POSITIVE PLACEMENT NOTED, NO RESIDUAL, WITH TUBE FEEDING OF JEVITY 1.2 AT 30 ML/HR. ZARATE CATHETER CONNECTED TO URINE BAG IN PLACE, DRAINING TO A MODERATE AMOUNT OF A CLEAR, YELOW OUTPUT. SAFETY MEASURES IMPLEMENTED. PATIENT BED ALARM IS ON. HEAD OF BED ELEVATED. BED IS LOCKED, IN LOWEST POSITION AND SIDE RAILS UP. CALL LIGHT WITHIN REACH OF THE PATIENT. WILL CONTINUE TO MONITOR AND REASSESS FOR ANY CHANGES.
[2021-04-07] VITALS: BP 99/61
[2021-04-07 04:00] VITALS: BP 107/70
[2021-04-07] MEDS: HYDROCORTISONE SOD SUCCINATE 100 MG/2 ML VIAL IV SCH ×3 (04:44→20:19)
[2021-04-07] MEDS: Sodium Bicarbonate 50 MEQ in IV 1/2NS 1000 ML 1,000 ML IV SCH ×2 (04:44→17:45)
[2021-04-07 06:38] LABS: BASOPHILS % (AUTO) 0.1 % (0.0-2.0); EOSINOPHILS % (AUTO) 0.3 % (0.0-6.0); HEMATOCRIT 24 % (39-51); HEMOGLOBIN 8.2 g/dL (13.5-17.5); LYMPHOCYTES # (AUTO) 1.1 K/uL (0.8-4.8); LYMPHOCYTES % (AUTO) 10.8 % (20.0-44.0); MEAN CORPUSCULAR HGB CONC 35 g/dl (31.0-36.0); MEAN CORPUSCULAR VOLUME 94 fL (80-96); MONOCYTES # (AUTO) 0.5 K/uL (0.1-1.30); MONOCYTES % (AUTO) 5.2 % (2.0-12.0); NEUTROPHILS # (AUTO) 8.5 K/uL (1.8-8.9); NEUTROPHILS % (AUTO) 83.6 % (43.0-81.0); PLATELET COUNT (AUTO) 362 K/uL (150-450); RED BLOOD CELL COUNT(AUTO) 2.52 MIL/uL (4.5-6.0); WHITE BLOOD COUNT (AUTO) 10.2 K/uL (4.3-11.0)
[2021-04-07 07:29] LABS: CREATININE 1.6 mg/dL (0.6-1.3); PHOSPHORUS 3.7 mg/dL (2.5-4.9); POTASSIUM 3.1 mmol/L (3.5-5.1)
--- NOTE | 2021-04-07 07:33 | NUR ---
RN OPENING NOTE PATIENT RECEIVED IN BED, ASLEEP. ON MECHANICAL VENTILATOR WITH A TRACHEOSTOMY TUBE, FIO2 OF 30, NO SIGNS OF LABORED BREATHING AT THIS TIME. ON TELE MONITOR, SINUS BRANDON AT THIS TIME. ZARATE CATHETER ON AND PATENT. G TUBE IN PLACE RUNNING GEVITY AT 30CC/HR. L UA PICC LINE IN PLACE, NA BICARD 1/2 NS RUNNING 75CC/HR WITH NO SIGNS OF INFILTRATION. L FOREARM 20G IN PLACE WITH NO SIGNS OF INFILTRATION. BED LOCKED AND IN LOWEST POSITION, CALL LIGHT WITHIN REACH, 3 SIDE RAILS UP. WILL CONTINUE TO MONITOR.
[2021-04-07 07:37] LABS: CALCIUM, SERUM 5.4 mg/dL (8.5-10.1)
[2021-04-07 08:00] VITALS: BP 117/70
[2021-04-07] MEDS ORDERED: POTASSIUM CHLORIDE 20 MEQ POWDER PACKET GT ONE (09:00)
[2021-04-07] MEDS: CHLORHEXIDINE GLUCONATE 15 ML UDC MM SCH ×2 (09:03→20:19)
[2021-04-07] MEDS: MEROPENEM 1 G in IV NS 0.9% 100 ML IV SCH ×2 (09:03→20:19)
[2021-04-07] MEDS: LEVETIRACETAM SOL (5 ML) 100 MG/ML UDC GT SCH ×2 (09:03→20:19)
[2021-04-07] MEDS: MIDODRINE HCL (5MG) 5 MG TABLET GT SCH ×3 (09:04→16:54)
[2021-04-07] MEDS: LIOTHYRONINE SODIUM (25 MCG) 25 MCG TABLET GT SCH (09:04)
[2021-04-07] MEDS: THIAMINE HCL 100 MG TABLET GT SCH (09:04)
[2021-04-07] MEDS: CINACALCET HCL 30 MG TABLET GT SCH (09:04)
[2021-04-07] MEDS: PANTOPRAZOLE 40 MG/PACK PACK GT SCH (09:04)
[2021-04-07] MEDS: SODIUM BICARBONATE 650 MG TABLET PEG SCH ×2 (09:04→16:53)
[2021-04-07] MEDS: FLUDROCORTISONE 0.1 MG TABLET GT SCH (09:05)
[2021-04-07] MEDS: THERAHONEY GEL 1.5 OZ TUBE TP SCH (09:06)
[2021-04-07] MEDS: GABAPENTIN 100 MG CAPSULE GT SCH ×3 (09:06→16:53)
[2021-04-07] MEDS: LEVOTHYROXINE INJ 100 MCG VIAL IV SCH (09:15)
[2021-04-07 12:00] VITALS: BP 102/53
[2021-04-07] MEDS: VANCOMYCIN 1 GM in IV D5W 250 ML IV SCH (12:21)
[2021-04-07 16:00] VITALS: BP 114/77
[2021-04-07] MEDS ORDERED: Calcium Gluconate 1GM/10ML 4.65 MEQ in IV D5W 50 ML IV ONE (16:00)
--- NOTE | 2021-04-07 16:12 | NUR ---
AIRPLANE CLEANER NOTE NOTED UPPER BODY TWITCHING\JERKING MOVEMENT K 5,4 PATIENT ON KEPPRA , CALLED TO DR LARSON , NOTIFIED THAT DR PETERS ORDERED CA GLUCONATE IV ,POSSIBLE TWITCHING FROM LOW CA, STATED CONT CA GLUCONATE ORDERED BY DR CARLISLE, WILL F\U AND MONITOR
--- NOTE | 2021-04-07 18:38 | NUR ---
RN CLOSING NOTE PATIENT IN BED, OBTUNDED, EYES OPEN. PATIENT ON MECHANICAL VENTILATOR, FIO2 OF 30, WITH NO SIGNS OF LABORED BREATHING AT THIS TIME. PATIENT ON TELE MONITOR, SINUS RHYTHM AT THIS TIME. ZARATE CATHETER IN PLACE, PATENT AND DRAINING. G TUBE IN PLACE RUNNING GEVITY AT 55CC/HR. L UPPER ARM PICC LINE IN PLACE, PATENT WITH NO SIGNS OF INFILTRATION AND RUNNING SODIUM BICARB 1/2NS AT 75CC/HR. LEFT FOREARM 20G IN PLACE, PATENT WITH NO SIGNS OF INFILTRATION. NO SIGNS OF DISTRESS NOTED AT THIS TIME. BED LOCKED AND IN LOWEST POSITION, 3 SIDE RAILS UP, CALL LIGHT WITHIN REACH. WILL ENDORSE TO AUDIO VIDEO TECHNICIAN NURSE.
--- NOTE | 2021-04-07 19:20 | NUR ---
RN NOTE RECEIVED PATENT IN BED RESTING OBTUNDED CONTRACTED EYES OPEN ,ON MECHANICAL VENT,IV SITE IS ON LEFT UPPER ARM PICC LINE INTACT PATENT ON SODIUM BICARBONATE IV HYDRATION 75CC/HR,ON G-TUBE FEEDING JEVITY 1.2 55CC/HR CHECKED PLACEMENT IN PLACE NO RESIDUAL NOTED,ZARATE CATHETER IN PLACE URINE DRAINING YELLOW AND CLEAR BY GRAVITY,HEAD OF THE BED ELEVATED SAFETY MEASURE IMPLEMENT BED IN LOW POSITION AND LOCKED CONTINUE TO MONITOR.
[2021-04-07 20:00] VITALS: BP 122/71
[2021-04-07] MEDS: ENOXAPARIN SODIUM 30 MG/0.3 ML DISP.SYRIN SQ SCH (21:42)
[2021-04-08] VITALS: BP 123/66
[2021-04-08 04:00] VITALS: BP 133/73
[2021-04-08] MEDS: HYDROCORTISONE SOD SUCCINATE 100 MG/2 ML VIAL IV SCH ×3 (04:26→20:45)
[2021-04-08] MEDS: JEVITY 1.2 CAL 1,000 ML BOTTLE GT SCH (05:17)
--- NOTE | 2021-04-08 06:58 | NUR ---
RN NOTE PATIENT REMAINS ON OBTUNDED CONTRACTED ON MECHANICAL VENT ON G-TUBE FEEDING JEVITY 1.2 55CC/HR NO SOB NO ACUTE DISTRESS NOTED, ZARATE CATHETER IN PLACE,URINE DRAINING YELLOW AND CLEAR BY GRAVITY REPOSITIONED EVERY 2HOURS,HEAD OF THE BED ELEVATED,KEPT CLEAN AND DRY ALL THE TIME,ALL NEEDS MET ENDORSE NEXT COMING SHIFT FOR CONTINUATION OF CARE.
[2021-04-08] MEDS: Sodium Bicarbonate 50 MEQ in IV 1/2NS 1000 ML 1,000 ML IV SCH ×2 (07:04→20:37)
[2021-04-08 07:09] LABS: CREATININE 1.5 mg/dL (0.6-1.3); POTASSIUM 3.2 mmol/L (3.5-5.1)
--- NOTE | 2021-04-08 07:30 | NUR ---
RN OPENING NOTE TELE PATIENT RECEIVED IN BED, ASLEEP. ON MECHANICAL VENTILATOR WITH A TRACHEOSTOMY TUBE, FIO2 OF 30, AC 12 TV 400 NO SIGNS OF LABORED BREATHING AT THIS TIME. ON TELE MONITOR, SR AT THIS TIME. ZARATE CATHETER ON AND PATENT. G TUBE IN PLACE, LEFT FOREARM 20G IN PLACE WITH NO SIGNS OF INFILTRATION. LEFT UPPER ARM PICC LINE IN PLACE, WITH NO SIGN OF INFILTRATION, NA BICARB RUNNING, BED LOCKED AND IN LOWEST POSITION, CALL LIGHT WITHIN REACH, 3 SIDE RAILS UP. WILL CONTINUE TO MONITOR. Addendum: 04/08/21 at 1730 by TYLER BEJARANO RN ADDENDUM: PT IS OBTUNDED, WITH SHILEY 6 TRACG TO MECHANICAL VENT. TOLERATING WELL, BREATHING EVEN AND UNLABORED, NO SIGNS OF PAIN OR DISCOMFORT AT THIS TIME, ONGOING NAHCO3 INFUSION AT 75 ML/HR. ZARATE CATH IN PLACE, GTF RUNNING AT 55 ML/HR, CHECKED FOR PLACEMENT WITH 0 RESIDUAL. NEEDS ANTICIPATED. WILL PERFORM PRESCRIBED WOUND TREATMENT IN A WHILE. WILL TURN AND REPOSITION Q 2 HOURS.
[2021-04-08] MEDS: LIOTHYRONINE SODIUM (25 MCG) 25 MCG TABLET GT SCH (07:46)
[2021-04-08] MEDS: LEVOTHYROXINE SODIUM 125 MCG TABLET GT SCH (07:46)
[2021-04-08 08:00] VITALS: BP 141/73
[2021-04-08 08:07] LABS: CALCIUM, SERUM 5.4 mg/dL (8.5-10.1)
--- NOTE | 2021-04-08 08:07 | NUR ---
RN NOTES DR. BRIGETTE CASTILLO NOTIFIED ABOUT CRITICAL RESULT CALCIUM 5.4
[2021-04-08] MEDS: CHLORHEXIDINE GLUCONATE 15 ML UDC MM SCH ×2 (08:55→20:45)
[2021-04-08] MEDS: LEVETIRACETAM SOL (5 ML) 100 MG/ML UDC GT SCH ×2 (08:56→20:44)
[2021-04-08] MEDS: THIAMINE HCL 100 MG TABLET GT SCH (08:56)
[2021-04-08] MEDS: PANTOPRAZOLE 40 MG/PACK PACK GT SCH (08:56)
[2021-04-08] MEDS: GABAPENTIN 100 MG CAPSULE GT SCH ×3 (08:56→17:30)
[2021-04-08] MEDS: MIDODRINE HCL (5MG) 5 MG TABLET GT SCH ×3 (08:57→17:00)
[2021-04-08] MEDS: FLUDROCORTISONE 0.1 MG TABLET GT SCH (08:57)
[2021-04-08] MEDS ORDERED: Calcium Gluconate 1GM/10ML 4.65 MEQ in IV D5W 50 ML IV ONE (09:00)
[2021-04-08] MEDS: MEROPENEM 1 G in IV NS 0.9% 100 ML IV SCH ×2 (09:16→20:43)
--- NOTE | 2021-04-08 09:30 | NUR ---
RN NOTES DUE MEDS GIVEN
[2021-04-08] MEDS: SODIUM BICARBONATE 650 MG TABLET PEG SCH ×2 (09:42→17:30)
[2021-04-08] MEDS: THERAHONEY GEL 1.5 OZ TUBE TP SCH (09:43)
[2021-04-08] MEDS: POTASSIUM CL. PREMIX PERIPHER. 50 ML IV SCH ×3 (09:54→11:41)
[2021-04-08 12:00] VITALS: BP 126/79
[2021-04-08 16:00] VITALS: BP 140/79
--- NOTE | 2021-04-08 19:00 | NUR ---
RN OPENING NOTES RECEIVED PATIENT IN BED. NO SOB, NO DISTRESS, ON MV WITH FF SETTINGS AC 12, VT 400, FI02 30%. WITH MIGUEL PICC LINE PATENT FLUSHES WELL. WITH ONGOING IVF OF 1/2 NS WITH NA BICARB 50 MEQS @ 75CC/HR. WITH LFA G #20 PATENT FLUSHES WELL NO INFILTRATION NOTED AT THIS TIME. WITH GT PATENT NO RESIDUAL NOTED. WITH ONGOING GTF OF JEVITY 1.2 @ 55CC/HR. SAFETY MEASURES IN PLACE, HOB ELEVATED, CALL LIGHT WITHIN REACH. WILL CONTINUE TO MONITOR.
--- NOTE | 2021-04-08 19:01 | NUR ---
RN CLOSING NOTES TELE PATIENT IN BED,OBTUNDED, OPENS EYES. WITH SHILEY 6 TO MECHANICAL VENTILATOR, WITH SETTINGS ORDERED, PT WITH NO SIGNS OF LABORED BREATHING AT THIS TIME. ON TELE MONITOR, SINUS RHYTHM. ZARATE CATHETER IN PLACE, PATENT WITH TOTAL OUTPUT OF 2000 ML. [address]UBE IN PLACE AND RUNNING AT 55CC/HR. O RESIDUAL. LEFT UPPER ARM PICC LINE IN PLACE AND PATENT. NAHCO3 50 MEQS INFUSING AT 75 ML/HR. LEFT FOREARM 20G IN PLACE, BOTH SITES WITH NO SIGNS OF INFILTRATION. WOUND CARE DONE PRESCRIBED. PM CARE DONE. BED LOCKED AND IN LOWEST POSITION, 3 SIDE RAILS UP, CALL LIGHT WITHIN REACH. ALL NEEDS MET. WILL ENDORSE TO TECHNOLOGY ADVISOR NURSE.
[2021-04-08 20:00] VITALS: BP 124/69
[2021-04-08] MEDS: ENOXAPARIN SODIUM 30 MG/0.3 ML DISP.SYRIN SQ SCH (21:04)
[2021-04-08] MEDS: VANCOMYCIN 1 GM in IV D5W 250 ML IV SCH (23:22)
[2021-04-09] VITALS: BP 134/59
--- NOTE | 2021-04-09 00:15 | NUR ---
RN NOTES NOTED WITH 99.9 TEMP. PRN ACETAMINOPHEN SUPP. GIVEN. WILL CONTINUE TO MONITOR
[2021-04-09] MEDS: ACETAMINOPHEN 650 MG/SUPP.RECT RC PRN (00:24)
[2021-04-09] MEDS: JEVITY 1.2 CAL 1,000 ML BOTTLE GT SCH (02:56)
[2021-04-09 04:00] VITALS: BP 122/68
[2021-04-09] MEDS: HYDROCORTISONE SOD SUCCINATE 100 MG/2 ML VIAL IV SCH ×3 (05:03→20:58)
--- NOTE | 2021-04-09 05:13 | NUR ---
PATIENT RECEIVED ON TRACH TO VENT WITH SETTINGS OF AC 12, 400 Vt, 30%, +0. SUCTIONED WITH LAVAGE FOR MINIMAL, THICK, YELLOW-CREAM SECRETIONS. AMBU BAG AT BEDSIDE. VENT AND PULSE OXIMETER ALARMS AUDIBLE AND VISIBLE. HME CHANGED. VENT PLUGGED IN RED OUTLET. Addendum: 04/09/21 at 0515 by DEEPAK CHAMBERLAIN RT Amended: Links added.
--- NOTE | 2021-04-09 05:36 | NUR ---
RN NOTE Noted IV line at LFA 20g dislodged and leaking. IV removed. Catheter intact and site benign. Pressure and 4x4 applied to site. No bleeding noted. Aseptic technique was observed.
--- NOTE | 2021-04-09 06:48 | NUR ---
RN CLOSING NOTES PATIENT REMAINS IN STABLE CONDITION. NO SOB, NO DISTRESS, AFEBRILE. ALL DUE MEDS GIVEN ORDERED. ALL SAFETY MEASURES IN PLACE, HOB ELEVATED, CALL LIGHT WITHIN REACH. ENDORSED.
[2021-04-09 07:03] LABS: CREATININE 1.4 mg/dL (0.6-1.3)
[2021-04-09 07:06] LABS: CALCIUM, SERUM 5.4 mg/dL (8.5-10.1)
--- NOTE | 2021-04-09 07:06 | NUR ---
RN NOTE CRITICAL LAB VALUE RECEIVED FORM [facility], CALCIUM 5.4. ENDORSED TO WINIFRED SCHNEIDER
--- NOTE | 2021-04-09 07:30 | NUR ---
RN NOTE PATIENT OBSERVED IN BED OBTUNDED, ON TRACHEOSTOMY WITH MECHANICAL VENTILATOR O2 SAT OF 98%, PATIENT ON G-TUBE FEEDING JEVITY 1.2 @55CC/HR, WITH MIGUEL PICC LINE NOTED, PATENT FLUSHING WELL, RUNNING .45% NS INFUSING WELL, ON ZARATE CATHETER NO HEMATURIA NOTED, SAFETY MEASURES OBSERVED, BED WHEELS LOCK, CALL LIGHT WITHIN REACH WILL CONTINUE TO MONITOR.
[2021-04-09 07:54] LABS: BASOPHILS % (AUTO) 0.2 % (0.0-2.0); EOSINOPHILS % (AUTO) 0.1 % (0.0-6.0); HEMATOCRIT 25 % (39-51); HEMOGLOBIN 8.2 g/dL (13.5-17.5); LYMPHOCYTES % (AUTO) 9.8 % (20.0-44.0); MEAN CORPUSCULAR HGB CONC 33 g/dl (31.0-36.0); MEAN CORPUSCULAR VOLUME 95 fL (80-96); MONOCYTES # (AUTO) 0.8 K/uL (0.1-1.30); MONOCYTES % (AUTO) 7.7 % (2.0-12.0); NEUTROPHILS # (AUTO) 8.8 K/uL (1.8-8.9); NEUTROPHILS % (AUTO) 82.2 % (43.0-81.0); PLATELET COUNT (AUTO) 294 K/uL (150-450); RED BLOOD CELL COUNT(AUTO) 2.62 MIL/uL (4.5-6.0); WHITE BLOOD COUNT (AUTO) 10.7 K/uL (4.3-11.0)
[2021-04-09 08:00] VITALS: BP 116/64
[2021-04-09] MEDS: LIOTHYRONINE SODIUM (25 MCG) 25 MCG TABLET GT SCH (08:13)
[2021-04-09] MEDS: GABAPENTIN 100 MG CAPSULE GT SCH ×3 (08:13→18:02)
[2021-04-09] MEDS: FLUDROCORTISONE 0.1 MG TABLET GT SCH (08:13)
[2021-04-09] MEDS: LEVOTHYROXINE SODIUM 125 MCG TABLET GT SCH (08:14)
[2021-04-09] MEDS: LEVETIRACETAM SOL (5 ML) 100 MG/ML UDC GT SCH ×2 (08:15→20:58)
[2021-04-09] MEDS: CHLORHEXIDINE GLUCONATE 15 ML UDC MM SCH ×2 (08:16→20:58)
[2021-04-09] MEDS: PANTOPRAZOLE 40 MG/PACK PACK GT SCH (08:26)
[2021-04-09] MEDS: THIAMINE HCL 100 MG TABLET GT SCH (08:27)
[2021-04-09] MEDS: MIDODRINE HCL (5MG) 5 MG TABLET GT SCH ×3 (08:28→18:01)
[2021-04-09] MEDS: MEROPENEM 1 G in IV NS 0.9% 100 ML IV SCH ×2 (08:36→20:59)
[2021-04-09] MEDS: SODIUM BICARBONATE 650 MG TABLET PEG SCH ×2 (08:38→18:01)
[2021-04-09] MEDS ORDERED: POTASSIUM CHLORIDE 20 MEQ POWDER PACKET GT ONE (09:00)
[2021-04-09] MEDS: THERAHONEY GEL 1.5 OZ TUBE TP SCH (09:39)
[2021-04-09] MEDS: Sodium Bicarbonate 50 MEQ in IV 1/2NS 1000 ML 1,000 ML IV SCH (09:42)
[2021-04-09 12:00] VITALS: BP 116/64
[2021-04-09] MEDS: CHOLECALCIFEROL (VITAMIN D 3) 400 UNIT TABLET GT SCH (13:12)
[2021-04-09 16:00] VITALS: BP 107/57
[2021-04-09] MEDS: ERGOCALCIFEROL (VITAMIN D 2) 50,000 UNIT CAPSULE GT SCH (17:00)
[2021-04-09] MEDS: IV 1/2NS 1000 ML 1,000 ML IV SCH (17:19)
--- NOTE | 2021-04-09 19:30 | NUR ---
RN NOTE REPORT RECEIVED FROM WINIFRED SCHNEIDER, PATIENT IN BED, OBTUNDED, OPENS EYES, IN NO S/SX OF ACUTE DISTRESS AT THIS TIME. ON TRACH SHILEY #6 CONNECTED TO MECHANICAL VENT WITH SETTINGS PRESCRIBED: AC 12, TV 400, FIO2 30%, PEEP 0, SATURATION AT 100%, SR ON THE MONITOR, HR IS 69. NOTED MIGUEL PICC LINE, ALL HUBS PATENT AND FLUSHING WELL, NO S/S OF INFECTION WITH 1/2 NS INFUSING AT 75 ML/HR. NOTED GTUBE INTACT POSITIVE PLACEMENT NOTED, NO RESIDUAL, WITH TUBE FEEDING OF JEVITY 1.2 AT 55 ML/HR. ZARTAE CATHETER CONNECTED TO URINE BAG IN PLACE, DRAINING TO A MODERATE AMOUNT OF A CLEAR, YELLOW OUTPUT. SAFETY MEASURES IMPLEMENTED. PATIENT BED ALARM IS ON. HEAD OF BED ELEVATED. BED IS LOCKED, IN LOWEST POSITION AND SIDE RAILS UP. CALL LIGHT WITHIN REACH OF THE PATIENT. WILL CONTINUE TO MONITOR AND REASSESS FOR ANY CHANGES.
[2021-04-09 20:00] VITALS: BP 139/72
[2021-04-09] MEDS: ENOXAPARIN SODIUM 30 MG/0.3 ML DISP.SYRIN SQ SCH (21:08)
[2021-04-10] VITALS: BP 125/73
[2021-04-10] MEDS: JEVITY 1.2 CAL 1,000 ML BOTTLE GT SCH (00:54)
[2021-04-10 04:00] VITALS: BP 121/68
[2021-04-10] MEDS: HYDROCORTISONE SOD SUCCINATE 100 MG/2 ML VIAL IV SCH ×3 (05:27→20:08)
[2021-04-10] MEDS: IV 1/2NS 1000 ML 1,000 ML IV SCH ×2 (06:53→17:38)
[2021-04-10 08:00] VITALS: BP 148/88
[2021-04-10 08:02] LABS: CREATININE 1.3 mg/dL (0.6-1.3); POTASSIUM 3.6 mmol/L (3.5-5.1)
[2021-04-10 08:05] LABS: CALCIUM, SERUM 5.1 mg/dL (8.5-10.1)
[2021-04-10] MEDS: MIDODRINE HCL (5MG) 5 MG TABLET GT SCH ×3 (09:00→17:00)
[2021-04-10] MEDS: PANTOPRAZOLE 40 MG/PACK PACK GT SCH (09:03)
[2021-04-10] MEDS: LEVOTHYROXINE SODIUM 125 MCG TABLET GT SCH (09:03)
[2021-04-10] MEDS: GABAPENTIN 100 MG CAPSULE GT SCH ×3 (09:03→17:35)
[2021-04-10] MEDS: THIAMINE HCL 100 MG TABLET GT SCH (09:03)
[2021-04-10] MEDS: CHOLECALCIFEROL (VITAMIN D 3) 400 UNIT TABLET GT SCH (09:04)
[2021-04-10] MEDS: FLUDROCORTISONE 0.1 MG TABLET GT SCH (09:04)
[2021-04-10] MEDS: LIOTHYRONINE SODIUM (25 MCG) 25 MCG TABLET GT SCH (09:04)
[2021-04-10] MEDS: SODIUM BICARBONATE 650 MG TABLET PEG SCH ×2 (09:04→17:35)
[2021-04-10] MEDS: LEVETIRACETAM SOL (5 ML) 100 MG/ML UDC GT SCH ×2 (09:04→20:08)
[2021-04-10] MEDS: CHLORHEXIDINE GLUCONATE 15 ML UDC MM SCH ×2 (09:05→20:08)
[2021-04-10] MEDS: THERAHONEY GEL 1.5 OZ TUBE TP SCH (09:05)
--- NOTE | 2021-04-10 09:45 | NUR ---
RN NOTE CALCIUM 5.4. MD MADE AWARE
[2021-04-10 12:00] VITALS: BP 138/65
[2021-04-10 16:00] VITALS: BP 132/76
--- NOTE | 2021-04-10 18:00 | NUR ---
RN NOTE NO URINE OUTPUT. BLADDERSCAN DONE 1000 CC. REPLACED CATHETER. STILL NO OUTPUT. KUB ORDERED. WILL ENDORSE TO CENTER MACHINE SET UP OPERATOR FOR PREET
--- NOTE | 2021-04-10 19:00 | NUR ---
RN OPENING NOTES RECEIVED REPORT FROM MORNING NURSE. WITH TRACH SHILEY #6 INTACT CONNECTED TO MV WITH PRESCIBED SETTINGS. WITH GT PATENT CONNECTED TO CONTINOUS FEEDING OF JEVITY 1.2 @55CC/HR. NO GASTRIC RESIDUAL NOTED. WITH ZARATE CATHETER CONNECTED TO URINE BAG. WITH MIGUEL PICC LINE INTACT FLUSHES WELL. WITH ONGOING IVF OF 1/2 NS @75CC/HR. VITAL SIGNS TAKEN AND RECORDED. XR OF ABD AND KUB DONE DUE TO NO URINE OUTPUT IN MORNING SHIFT. WILL CONTINUE TO MONITOR.
[2021-04-10] MEDS ORDERED: Calcium Gluconate 1GM/10ML 4.65 MEQ in IV D5W 50 ML IV ONE (19:30)
[2021-04-10 20:00] VITALS: BP 137/75
[2021-04-10] MEDS ORDERED: Calcium Gluconate 0.465 MEQ/ML VIAL IV ONE (20:40)
--- NOTE | 2021-04-10 22:00 | NUR ---
RN NOTES PATIENT REPOSITION AND CHECK ZARATE AND START DRAINING YELLOWISH URINE OUTPUT.
[2021-04-10] MEDS: ENOXAPARIN SODIUM 30 MG/0.3 ML DISP.SYRIN SQ SCH (22:18)
[2021-04-11] VITALS: BP 130/75
[2021-04-11 04:00] VITALS: BP 136/75
--- NOTE | 2021-04-11 05:30 | NUR ---
RN NOTES RELAYED TO REPORTS DEVELOPER CLARA OCAMPO PATIENT NO URINE OUTPUT SINCE 1AM. PER REPORTS DEVELOPER CLARA OCAMPO HOLD TF AND IV FLUIDS FOR NOW.
[2021-04-11] MEDS: HYDROCORTISONE SOD SUCCINATE 100 MG/2 ML VIAL IV SCH ×3 (05:53→18:14)
[2021-04-11] MEDS: JEVITY 1.2 CAL 1,000 ML BOTTLE GT SCH (05:56)
[2021-04-11 06:45] LABS: CREATININE 1.2 mg/dL (0.6-1.3); POTASSIUM 3.4 mmol/L (3.5-5.1)
[2021-04-11 06:48] LABS: CALCIUM, SERUM 5.2 mg/dL (8.5-10.1)
--- NOTE | 2021-04-11 07:30 | NUR ---
RN NOTE PATIENT IN BED OBTUNDED WITH TRACHEOSTOMY WITH MECHANICAL VENTILATION, TOLERATING WELL O2 SAT OF 100%, ON TELE MONITOR SR HR OF 70-80, PATIENT WITH ZARATE CATHETER NO HEMATURIA, ASPIRATION PRECAUTION ON JEVITY 1.2 @55 CC/HR TOLERATING WELL WITH 5 CC RESIDUAL NOTED, LEFT UPPER ARM PICC LINE NOTED WITH 1.2 NS @75CC. HR INFUSING WELL, BED WHEELS LOCK, CALL LIGHT WITHIN REACH, SAFETY MEASURE OBSERVED CALL LIGHT WITHIN REACH.
[2021-04-11 07:55] LABS: BASOPHILS % (AUTO) 0.1 % (0.0-2.0); EOSINOPHILS % (AUTO) 0.1 % (0.0-6.0); HEMATOCRIT 26 % (39-51); HEMOGLOBIN 8.4 g/dL (13.5-17.5); LYMPHOCYTES % (AUTO) 9.5 % (20.0-44.0); MEAN CORPUSCULAR HGB CONC 33 g/dl (31.0-36.0); MEAN CORPUSCULAR VOLUME 96 fL (80-96); MONOCYTES # (AUTO) 0.7 K/uL (0.1-1.30); MONOCYTES % (AUTO) 6.4 % (2.0-12.0); NEUTROPHILS # (AUTO) 8.9 K/uL (1.8-8.9); NEUTROPHILS % (AUTO) 83.9 % (43.0-81.0); PLATELET COUNT (AUTO) 224 K/uL (150-450); RED BLOOD CELL COUNT(AUTO) 2.69 MIL/uL (4.5-6.0); WHITE BLOOD COUNT (AUTO) 10.6 K/uL (4.3-11.0)
[2021-04-11 08:00] VITALS: BP 125/66
[2021-04-11] MEDS: LEVOTHYROXINE SODIUM 125 MCG TABLET GT SCH (08:23)
[2021-04-11] MEDS: PANTOPRAZOLE 40 MG/PACK PACK GT SCH (08:23)
[2021-04-11] MEDS: CHOLECALCIFEROL (VITAMIN D 3) 400 UNIT TABLET GT SCH (08:23)
[2021-04-11] MEDS: LEVETIRACETAM SOL (5 ML) 100 MG/ML UDC GT SCH ×2 (08:23→21:58)
[2021-04-11] MEDS: GABAPENTIN 100 MG CAPSULE GT SCH ×3 (08:23→17:41)
[2021-04-11] MEDS: FLUDROCORTISONE 0.1 MG TABLET GT SCH (08:23)
[2021-04-11] MEDS: LIOTHYRONINE SODIUM (25 MCG) 25 MCG TABLET GT SCH (08:23)
[2021-04-11] MEDS: THIAMINE HCL 100 MG TABLET GT SCH (08:24)
[2021-04-11] MEDS: CHLORHEXIDINE GLUCONATE 15 ML UDC MM SCH ×2 (08:30→21:58)
[2021-04-11] MEDS ORDERED: POTASSIUM CHLORIDE 20 MEQ POWDER PACKET GT SCH (08:30)
[2021-04-11] MEDS: MIDODRINE HCL (5MG) 5 MG TABLET GT SCH ×3 (08:30→17:42)
--- NOTE | 2021-04-11 08:30 | NUR ---
RN NOTE PER DR. CASTILLO, BRIGETTE, RAYMON TO FLUSH WITH STERILE WATER PRN FOR ZARATE RESIDUAL. PER FLUSHED ZARATE CATHETER ORDERED.
[2021-04-11] MEDS: SODIUM BICARBONATE 650 MG TABLET PEG SCH ×2 (08:32→17:41)
[2021-04-11] MEDS: IV 1/2NS 1000 ML 1,000 ML IV SCH ×2 (08:34→22:07)
[2021-04-11] MEDS: THERAHONEY GEL 1.5 OZ TUBE TP SCH (09:10)
[2021-04-11 09:25] LABS: LYMPHOCYTES % (MANUAL) 8 % (16-48); MONOCYTES % (MANUAL) 4 % (0-11.0); MYELOCYTES % 2 % (0-0); NEUTROPHILS % (MANUAL) 86 (42-76)
--- NOTE | 2021-04-11 09:47 | NUR ---
RN NOTE PATIENT SEEN BY DR. CASTILLO, CONTINUE TO MONITOR URINE OUTPUT. PER DR. CASTILLO OK TO GIVE MIDODRINE BP OF 125/66. REPLACED POTASSIUM ORDERED.
--- NOTE | 2021-04-11 11:03 | NUR ---
RN NOTE ZARATE CATHETER OUTPUT 1000CC AT THIS TIME DR. CASTILLO AWARE.
[2021-04-11] MEDS ORDERED: POTASSIUM CL. PREMIX PERIPHER. 50 ML IV SCH ×2 (11:30→12:00)
[2021-04-11 12:00] VITALS: BP 121/61
[2021-04-11] MEDS ORDERED: Calcium Gluconate 1GM/10ML 4.65 MEQ in IV D5W 50 ML IV ONE (12:00)
[2021-04-11] MEDS ORDERED: MEROPENEM 500 MG in IV NS 0.9% 50 ML IV SCH (13:00)
[2021-04-11 13:06] LABS: CALCITONIN 4.8 pg/mL (0.0-8.4)
[2021-04-11] MEDS: MEROPENEM 1 G in IV NS 0.9% 100 ML IV SCH ×2 (14:12→21:58)
[2021-04-11 16:00] VITALS: BP 121/64
[2021-04-11] MEDS ORDERED: HYDROCORTISONE SOD SUCCINATE 100 MG/2 ML VIAL IV SCH (18:00)
--- NOTE | 2021-04-11 19:04 | NUR ---
RN NOTE PATIENT IN BED OBTUNDED WITH TRACHEOSTOMY WITH MECHANICAL VENTILATION, TOLERATING WELL O2 SAT OF 100%, ON TELE MONITOR SR HR OF 70-80, ZARATE CATHETER IRRIGATED ORDERED OUTPUT OF 2800 PATIENT WITH ZARATE CATHETER NO HEMATURIA, ASPIRATION PRECAUTION ON JEVITY 1.2 @55 CC/HR TOLERATING WELL WITH 5 CC RESIDUAL NOTED, LEFT UPPER ARM PICC LINE NOTED WITH 1.2 NS @75CC. HR INFUSING WELL, REPLACE POTASSIUM ORDERED, REPLACED CALCIUM ORDERED, WOUND TREATMENT DONE ORDERED, CT ABDOMEN DONE, CONTINUE ATB AFEBRILE AT THIS TIME, BED WHEELS LOCK, CALL LIGHT WITHIN REACH, SAFETY MEASURE OBSERVED CALL LIGHT WITHIN REACH. WILL ENDORSE TO NOC SHIFT
--- NOTE | 2021-04-11 19:48 | NUR ---
RN NOTE PATIENT OBTUNDED. IN BED WITH HEAD OF BED ELEVATED. ON TRACH TO VENT, TOLERATING SETTINGS WELL. NO SIGNS OF DISCOMFORT. ZARATE CATH DRAINING YELLOW URINE VIA GRAVITY. G-TUBE RUNNING JEVITY 1.2 @ 55ML/HR, 5 CC RESIDUAL NOTED. MIGUEL PICC LINE INFUSING 1/2 NS @ 75ML/HR, NO S/S OF INFILTRATION. FAMILY @ BEDSIDE. BED LOCKED AND IN LOWEST POSITION. WILL CONTINUE TO MONITOR.
[2021-04-11 20:00] VITALS: BP 137/89
[2021-04-11] MEDS: ENOXAPARIN SODIUM 30 MG/0.3 ML DISP.SYRIN SQ SCH (22:02)
[2021-04-12] VITALS: BP 122/82
[2021-04-12 04:00] VITALS: BP 122/70
[2021-04-12] MEDS: MEROPENEM 1 G in IV NS 0.9% 100 ML IV SCH ×2 (04:30→12:01)
--- NOTE | 2021-04-12 07:04 | NUR ---
RN NOTE RECEIVED PT IN BED. IN SUPINE POS. PATIENT OBTUNDED. ON TRACH TO VENT, TOLERATING SETTINGS WELL. NO SIGNS OF DISCOMFORT. ZARATE CATH DRAINING YELLOW URINE VIA GRAVITY. G-TUBE RUNNING JEVITY 1.2 @ 55ML/HR, 5 CC RESIDUAL NOTED. MIGUEL PICC LINE INFUSING 1/2 NS @ 75ML/HR, NO S/S OF INFILTRATION. SAFETY MEASURES RENDERED, BED LOCKED WITH CALL LIGHT WITHIN REACH. WILL CONTINUE TO MONITOR.
--- NOTE | 2021-04-12 07:07 | NUR ---
RN NOTE PATIENT OBTUNDED IN BED. NO S/S OF DISTRESS. NO SIGNIFICANT CHANGES DURING THIS SHIFT. ZARATE CATH DRAINED 1000CC YELLOW URINE AND HAD X1 BM. KEPT CLEAN AND DRY. WILL ENDORSE TO AM SHIFT.
[2021-04-12 07:36] LABS: CREATININE 1.3 mg/dL (0.6-1.3); POTASSIUM 3.1 mmol/L (3.5-5.1)
--- NOTE | 2021-04-12 07:46 | NUR ---
RN NOTES; CT OF ABDOMEN CAME BACK. NOTIFIED VARGAS. PT HAS DISTENDED ABDOMEN, AND ABNORMAL KUB. WAITING FOR FURTHER ORDERS. WILL CONTINUE TO MONITOR.
[2021-04-12 08:00] VITALS: BP 123/76
[2021-04-12] MEDS: CHLORHEXIDINE GLUCONATE 15 ML UDC MM SCH ×2 (08:07→21:32)
[2021-04-12] MEDS: PANTOPRAZOLE 40 MG/PACK PACK GT SCH (08:07)
[2021-04-12] MEDS: LEVETIRACETAM SOL (5 ML) 100 MG/ML UDC GT SCH ×2 (08:07→21:32)
[2021-04-12] MEDS: FLUDROCORTISONE 0.1 MG TABLET GT SCH (08:08)
[2021-04-12] MEDS: SODIUM BICARBONATE 650 MG TABLET PEG SCH ×2 (08:08→16:11)
[2021-04-12] MEDS: CHOLECALCIFEROL (VITAMIN D 3) 400 UNIT TABLET GT SCH (08:08)
[2021-04-12] MEDS: HYDROCORTISONE SOD SUCCINATE 100 MG/2 ML VIAL IV SCH ×2 (08:08→16:11)
[2021-04-12] MEDS: LEVOTHYROXINE SODIUM 125 MCG TABLET GT SCH (08:08)
[2021-04-12] MEDS: LIOTHYRONINE SODIUM (25 MCG) 25 MCG TABLET GT SCH (08:08)
[2021-04-12] MEDS: GABAPENTIN 100 MG CAPSULE GT SCH ×3 (08:08→16:11)
[2021-04-12] MEDS: THIAMINE HCL 100 MG TABLET GT SCH (08:08)
[2021-04-12] MEDS: MIDODRINE HCL (5MG) 5 MG TABLET GT SCH ×3 (08:12→16:11)
--- NOTE | 2021-04-12 08:13 | NUR ---
RN NOTES; DEMETRA TINOCO, PT BP 123/76. WILL CONTINUE TO MONITOR.
[2021-04-12 08:20] LABS: CALCIUM, SERUM 5.2 mg/dL (8.5-10.1)
[2021-04-12] MEDS: THERAHONEY GEL 1.5 OZ TUBE TP SCH (08:34)
[2021-04-12] MEDS: POTASSIUM CHLORIDE 20 MEQ POWDER PACKET GT SCH ×2 (10:11→10:55)
[2021-04-12] MEDS: IV 1/2NS 1000 ML 1,000 ML IV SCH (11:43)
[2021-04-12 12:00] VITALS: BP 136/86
--- NOTE | 2021-04-12 12:02 | NUR ---
RN NOTES; MIDODRINE HELD, PT BP IS 136/86. WILL CONTINUE TO MONITOR.
[2021-04-12 16:00] VITALS: BP 142/93
--- NOTE | 2021-04-12 16:12 | NUR ---
RN NOTES; MIDODRINE HELD. PT BP 142/93. WILL CONTINUE TO MONITOR.
--- NOTE | 2021-04-12 18:35 | NUR ---
RN CLOSING NOTES; PT IN RESTING IN SUPINE POS. WITH PILLOWS IN BETWEEN LEGS FOR SUPPORT. PT ON VENT AND TOLERATING SETTING WELL. NO SOB NOTED, NO DISTRESS NOTED. PT OBTUNDED. ALL MEDICATIONS GIVEN AND WELL TOLERATED. FEEDING ON HOLD PER MD ORDER. [facility] PIC PATENT RUNNING NSS @ 100CC/10HRS. NO SIGNIFICANT CHANGES IN PT HEALTH STATUS. PT KEPT CLEAN, DRY, AND COMFORTABLE. SAFE MEASURES RENDERED, BED LOCKED IN LOWEST POS. WITH CALL LIGHT WITHIN REACH. ENDORSED TO SMOKING PIPE DRILLER AND THREADER RN IN STABLE CONDITION.
--- NOTE | 2021-04-12 19:45 | NUR ---
TELE - RN NOTE: RECEIVED PATIENT ON VENT. OBTUNDED, TOLERATING VENT SETTINGS, NO DISTRESS, NO DISCOMFORT NOTED. NO S/S OF PAIN. ON TELE - SINUS RHYTHM. HR 63. IVF - INFUSING 0.45% NS AT 100 ML/HR. NO S/S OF INFILTRATION NOTED. MIGUEL PICC. INTACT AND PATENT. ZARATE CATH. INTACT AND PATENT. NO OUTPUT NOTED AT THIS TIME. ABD. REMAINS DISTENDED. G-TUBE ON HOLD PER DAY SHIFT DUE TO DISTENTION OF ABDOMEN. REPOSITION FOR COMFORT AND SKIN MANAGEMENT. KEPT PATIENT DRY AND CLEAN. CONTINUING TO MONITOR. FAMILY IS AT BEDSIDE. SIDE RAILS UP X3. CALL LIGHT WITHIN REACH. BED AT LOWEST POSITION. VSS.
[2021-04-12 19:56] VITALS: BP 122/97
[2021-04-12] MEDS: ENOXAPARIN SODIUM 30 MG/0.3 ML DISP.SYRIN SQ SCH (21:33)
[2021-04-13] VITALS (8 sets, daily range): BP systolic 122–152; BP diastolic 74–87
[2021-04-13] MEDS: IV 1/2NS 1000 ML 1,000 ML IV SCH ×3 (01:46→17:36)
--- NOTE | 2021-04-13 06:31 | NUR ---
RN CLOSING NOTES: PATIENT ON VENT, OBTUNDED, SHOWS NO SIGNS OF DISTRESS, TOLERATING VENT SETTINGS. BLOOD DRAWN FOR LABS. WILL CONTINUE TO MONITOR.
[2021-04-13 06:51] LABS: EOSINOPHILS % (AUTO) 1.8 % (0.0-6.0); HEMATOCRIT 26 % (39-51); HEMOGLOBIN 8.7 g/dL (13.5-17.5); LYMPHOCYTES # (AUTO) 1.3 K/uL (0.8-4.8); LYMPHOCYTES % (AUTO) 13.3 % (20.0-44.0); MEAN CORPUSCULAR HGB CONC 33 g/dl (31.0-36.0); MEAN CORPUSCULAR VOLUME 96 fL (80-96); MONOCYTES # (AUTO) 0.8 K/uL (0.1-1.30); MONOCYTES % (AUTO) 8.2 % (2.0-12.0); NEUTROPHILS # (AUTO) 7.5 K/uL (1.8-8.9); NEUTROPHILS % (AUTO) 76.7 % (43.0-81.0); PLATELET COUNT (AUTO) 200 K/uL (150-450); RED BLOOD CELL COUNT(AUTO) 2.73 MIL/uL (4.5-6.0); WHITE BLOOD COUNT (AUTO) 9.7 K/uL (4.3-11.0)
--- NOTE | 2021-04-13 07:30 | NUR ---
RN NOTE PATIENT OBSERVED IN BED OBTUNDED, ON TRACHEOSTOMY WITH MECHANICAL VENTILATOR O2 SAT OF 98%, PATIENT ON G-TUBE FEEDING JEVITY 1.2 @55CC/HR on hold FOR SUPECTED BOWEL OBSTRUCTION IMAGING WITH CONTRAST TO BE DONE TODAY, WITH MIGUEL PICC LINE NOTED, PATENT FLUSHING WELL, RUNNING .45% NS INFUSING WELL, ON ZARATE CATHETER NO HEMATURIA NOTED, SAFETY MEASURES OBSERVED, BED WHEELS LOCK, CALL LIGHT WITHIN REACH WILL CONTINUE TO MONITOR.
[2021-04-13 07:31] LABS: CREATININE 1.2 mg/dL (0.6-1.3); POTASSIUM 3.1 mmol/L (3.5-5.1)
[2021-04-13 07:37] LABS: CALCIUM, SERUM 5.2 mg/dL (8.5-10.1)
--- NOTE | 2021-04-13 07:39 | NUR ---
WYATT NOTE CALCIUM OF 5.2 NOTIFIED GAGAN FROST DO. Addendum: 04/13/21 at 1047 by WINIFRED AGGARWAL RN ERROR
[2021-04-13] MEDS: LIOTHYRONINE SODIUM (25 MCG) 25 MCG TABLET GT SCH ×2 (07:50→08:26)
[2021-04-13] MEDS: LEVOTHYROXINE SODIUM 125 MCG TABLET GT SCH ×2 (07:50→08:28)
[2021-04-13] MEDS: SODIUM BICARBONATE 650 MG TABLET PEG SCH ×2 (08:26→17:17)
[2021-04-13] MEDS: GABAPENTIN 100 MG CAPSULE GT SCH ×3 (08:26→17:17)
[2021-04-13] MEDS: HYDROCORTISONE SOD SUCCINATE 100 MG/2 ML VIAL IV SCH (08:26)
[2021-04-13] MEDS: FLUDROCORTISONE 0.1 MG TABLET GT SCH (08:26)
[2021-04-13] MEDS: PANTOPRAZOLE 40 MG/PACK PACK GT SCH (08:27)
[2021-04-13] MEDS: THIAMINE HCL 100 MG TABLET GT SCH (08:27)
[2021-04-13] MEDS: MIDODRINE HCL (5MG) 5 MG TABLET GT SCH ×3 (08:28→17:17)
[2021-04-13] MEDS: LEVETIRACETAM SOL (5 ML) 100 MG/ML UDC GT SCH (08:28)
[2021-04-13] MEDS: CHOLECALCIFEROL (VITAMIN D 3) 400 UNIT TABLET GT SCH (08:30)
[2021-04-13] MEDS: CHLORHEXIDINE GLUCONATE 15 ML UDC MM SCH ×2 (08:30→21:29)
--- NOTE | 2021-04-13 08:30 | NUR ---
RN NOTE CALCIUM OF 5.2 AND POTASSIUM OF 3.1 NOTIFIED VARGAS
[2021-04-13] MEDS: THERAHONEY GEL 1.5 OZ TUBE TP SCH (08:31)
[2021-04-13] MEDS: POTASSIUM CHLORIDE 20 MEQ TAB.PRT.SR PO SCH ×2 (10:33→11:37)
[2021-04-13] MEDS ORDERED: Calcium Gluconate 1GM/10ML 4.65 MEQ in IV D5W 50 ML IV ONE ×2 (12:00→15:00)
[2021-04-13] MEDS ORDERED: DIATR MEGLU/DIATRIZOATE SODIUM 120 ML BOTTLE (GASTROGRAPHIN) ONE (12:29)
--- NOTE | 2021-04-13 13:56 | NUR ---
RN NOTE PATIENT ON CALCIUM REPLACEMENT
--- NOTE | 2021-04-13 17:02 | NUR ---
RN NOTE PATIENT OBSERVED IN BED OBTUNDED, ON TRACHEOSTOMY WITH MECHANICAL VENTILATOR O2 SAT OF 98%, PATIENT ON G-TUBE FEEDING JEVITY 1.2 @55CC/HR on hold FOR SUPECTED BOWEL OBSTRUCTION IMAGING WITH CONTRAST TO BE DONE TODAY, WITH MIGUEL PICC LINE NOTED, PATENT FLUSHING WELL, RUNNING .45% NS INFUSING WELL, ON ZARATE CATHETER NO HEMATURIA NOTED, SAFETY MEASURES OBSERVED, BED WHEELS LOCK, CALL LIGHT WITHIN REACH WILL CONTINUE TO MONITOR. Addendum: 04/13/21 at 1707 by WINIFRED AGGARWAL RN RN NOTE SMALL BOWEL X-RAY RESULT PENDING AT THIS TIME.
--- NOTE | 2021-04-13 18:11 | NUR ---
RN NOTE SMALL BOWEL X-RAY RESULT RELAYED TO .
--- NOTE | 2021-04-13 18:59 | NUR ---
RN NOTE PATIENT OBSERVED IN BED OBTUNDED, ON TRACHEOSTOMY WITH MECHANICAL VENTILATOR O2 SAT OF 98%, PATIENT ON G-TUBE FEEDING JEVITY 1.2 @55CC/HR on hold FOR SUPECTED BOWEL OBSTRUCTION IMAGING WITH CONTRAST VARGAS HOLLINS NOTIFIED, POTASIUM REPLACED AND CALCIUM ORDERED. , WITH MIGUEL PICC LINE NOTED, PATENT FLUSHING WELL, RUNNING .45% NS INFUSING WELL, ON ZARATE CATHETER NO HEMATURIA NOTED, URINE OUTPUT OF 3300 CC, SAFETY MEASURES OBSERVED, BED WHEELS LOCK, CALL LIGHT WITHIN REACH WILL CONTINUE TO MONITOR. WILL ENDORSE TO NOC SHIFT.
--- NOTE | 2021-04-13 19:30 | NUR ---
RN NOTE RECEIVED PATIENT IN BED. OBTUNDED. ON MECHANICAL VENT. LISA #6, AC 12TV 400 FIO2 30% PEEP 0. RESPIRATIONS ARE EVEN AND UNLABORED. NO S/S SOB NOTED. NO S/S PAIN NOTED. IN NO APPARENT DISTRESS. TELE MONITOR READS SINUS RHYTHM HR 64. IV ACCESS IN MIGUEL PICC LINE RUNNING 1/2NS@100ML/HR. GTUBE IS PRESENT, NO RESIDUAL. FEEDING IS BEING HELD D/T SMALL BOWEL FOLLOW THROUGH. ZARATE CATHETER IS PRESENT, DRAINING TO GRAVITY. BED IS LOW AND LOCKED, HOB ELEVATED IN SEMI FOWLERS, SIDE RAILS UP X2, CALL LIGHT WITHIN REACH. FAMILY AT BEDSIDE.
--- NOTE | 2021-04-13 19:52 | NUR ---
RT NOTE PT RECEIVED TRACHED ON MECHANICAL VENTILATION. SUCTION DONE, TRACH SECURED AND PATENT. VENT PLUGGED TO RED OUTLET. ALARMS ON AND AUDIBLE. NO RESPIRATORY DISTRESS NOTED AT THIS TIME. WILL CONTINUE TO MONITOR. CONT. PULSE OX CONNECTED. Addendum: 04/13/21 at 1953 by MICHAEL WILSON RT Amended: Links added.
--- NOTE | 2021-04-13 20:41 | NUR ---
RN NOTE CALLED ON-CALL DR. BENAVIDEZ TO INFORM HIM I RECEIVED PATIENT WITH HELD GTUBE FEEDING PENDING SMALL BOWEL FOLLOW THROUGH. MD INFORMED OF RESULTS, NO SIGNIFICANT SMALL BOWEL OBSTRUCTION. INFORMED HIM PATIENT HAD POSITIVE BOWEL SOUNDS, NO RESIDUAL, ABDOMEN IS FIRM. MD TELEPHONE ORDER TO CONTINUE TO HOLD D/T WE CAN NOT SEE ILEUS ON XR. ALSO INFORMED HIM PATIENT RECEIVES KEPPRA 750MG VIA GTUBE. TELEPHONE ORDER TO CHANGE KEPPRA 750MG IV Q12HR. READ BACK, NOTED AND CARRIED OUT.
[2021-04-13] MEDS: LEVETIRACETAM (500MG) 750 MG in IV NS 0.9% 100 ML IV SCH (21:28)
[2021-04-13] MEDS: ENOXAPARIN SODIUM 30 MG/0.3 ML DISP.SYRIN SQ SCH (21:30)
[2021-04-14] VITALS: BP 159/94
[2021-04-14] MEDS: IV 1/2NS 1000 ML 1,000 ML IV SCH ×2 (03:39→15:21)
[2021-04-14 04:00] VITALS: BP 152/93
[2021-04-14 06:34] LABS: BASOPHILS % (AUTO) 0.1 % (0.0-2.0); EOSINOPHILS % (AUTO) 4.8 % (0.0-6.0); HEMATOCRIT 27 % (39-51); HEMOGLOBIN 8.9 g/dL (13.5-17.5); LYMPHOCYTES # (AUTO) 1.5 K/uL (0.8-4.8); MEAN CORPUSCULAR HGB CONC 33 g/dl (31.0-36.0); MEAN CORPUSCULAR VOLUME 95 fL (80-96); MONOCYTES # (AUTO) 0.8 K/uL (0.1-1.30); MONOCYTES % (AUTO) 7.4 % (2.0-12.0); NEUTROPHILS # (AUTO) 8.4 K/uL (1.8-8.9); NEUTROPHILS % (AUTO) 74.7 % (43.0-81.0); PLATELET COUNT (AUTO) 178 K/uL (150-450); RED BLOOD CELL COUNT(AUTO) 2.83 MIL/uL (4.5-6.0); WHITE BLOOD COUNT (AUTO) 11.2 K/uL (4.3-11.0)
--- NOTE | 2021-04-14 06:34 | NUR ---
RN NOTE PATIENT RESTING IN BED. OBTUNDED. REMAINS ON MECHANICAL VENT. NO CHANGES IN SETTING. NO RESP DISTRESS. NO S/S PAIN. NO DISTRESS. TELE READS SINUS RHYTHM. IV IN MIGUEL PICC LINE RUNNING 1/2NS@100ML/HR. GTUBE CLAMPED. ZARATE CATHETER HAS NO OUTPUT. PATIENT WAS IN URINE AND CLEANED 3 TIMES. BED REMAINS LOW AND LOCKED, HOB ELEVATED IN SEMI FOWLERS, SIDE RAILS UP X2, CALL LIGHT WITHIN REACH.
[2021-04-14 07:17] LABS: ALBUMIN 2.4 g/dL (3.4-5.0); BILIRUBIN,TOTAL 0.9 mg/dL (0.2-1.0); CREATININE 1.3 mg/dL (0.6-1.3); MAGNESIUM 1.5 mg/dL (1.8-2.4); PHOSPHORUS 3.3 mg/dL (2.5-4.9); TOTAL PROTEIN, SERUM 5.2 g/dL (6.4-8.2)
[2021-04-14 07:42] LABS: CALCIUM, SERUM 5.1 mg/dL (8.5-10.1)
[2021-04-14 08:00] VITALS: BP 137/89
--- NOTE | 2021-04-14 08:08 | NUR ---
telephone maintainer note patient in bed , all needs attended with trach to vent setting as ordered, on tele monitor hr 79, ob npo at this time g tube in place no residual noted , bed in lowest and locked position, with Cedeno cath to gravity with yellow color urine, left upper arm picc line in place , on ivf as ordered, will cont to monitor
[2021-04-14] MEDS: SODIUM BICARBONATE 650 MG TABLET PEG SCH ×2 (08:43→16:12)
[2021-04-14] MEDS: FLUDROCORTISONE 0.1 MG TABLET GT SCH (08:43)
[2021-04-14] MEDS: HYDROCORTISONE SOD SUCCINATE 100 MG/2 ML VIAL IV SCH (08:43)
[2021-04-14] MEDS: GABAPENTIN 100 MG CAPSULE GT SCH ×3 (08:43→16:12)
[2021-04-14] MEDS: CHOLECALCIFEROL (VITAMIN D 3) 400 UNIT TABLET GT SCH (08:43)
[2021-04-14] MEDS: THIAMINE HCL 100 MG TABLET GT SCH (08:43)
[2021-04-14] MEDS: CHLORHEXIDINE GLUCONATE 15 ML UDC MM SCH ×2 (08:43→21:16)
[2021-04-14] MEDS: PANTOPRAZOLE 40 MG/PACK PACK GT SCH (08:43)
[2021-04-14] MEDS: MIDODRINE HCL (5MG) 5 MG TABLET GT SCH ×3 (08:43→16:14)
[2021-04-14] MEDS: THERAHONEY GEL 1.5 OZ TUBE TP SCH (08:45)
[2021-04-14] MEDS: LEVETIRACETAM (500MG) 750 MG in IV NS 0.9% 100 ML IV SCH ×2 (08:46→21:15)
--- NOTE | 2021-04-14 09:45 | NUR ---
television engineer note dr tenorio notified ca 5.1
--- NOTE | 2021-04-14 09:47 | NUR ---
clerk television production note per dr jona tsang to start g tube feeding and give medication
[2021-04-14] MEDS: JEVITY 1.2 CAL 1,000 ML BOTTLE GT PRN (10:37)
--- NOTE | 2021-04-14 10:44 | NUR ---
television camera operator note dr carey notified ca 5.1
[2021-04-14] MEDS ORDERED: Calcium Gluconate 1GM/10ML 9.3 MEQ in IV D5W 250 ML IV ONE (11:00)
[2021-04-14] MEDS: Magnesium 1GM/D5W 100ML PREMIX 100 ML IV SCH ×2 (11:15→12:26)
--- NOTE | 2021-04-14 11:30 | NUR ---
PROGRAM DIR NOTE DR KAYE AWARE THAT K 3.0 NA 151
[2021-04-14 12:00] VITALS: BP 152/84
--- NOTE | 2021-04-14 13:00 | NUR ---
teleprinter installer note per bladder scanner note urine retention 900 ml ,new Cedeno cath inserted with good 600 urine out put noted ,keep clean dry
[2021-04-14] MEDS: POTASSIUM CL. PREMIX PERIPHER. 50 ML IV SCH ×5 (13:28→18:16)
[2021-04-14 16:00] VITALS: BP 133/67
--- NOTE | 2021-04-14 16:00 | NUR ---
radiotelegrapher note rounds made , turn reposition , all needs attended
--- NOTE | 2021-04-14 18:08 | NUR ---
RN CLOSING NOTES: PATIENT IS ON BED, OBTUNDED, ON VENT TOLERATING SETTINGS ORDERED, SHOWS NO SIGNS OF DISTRESS OR SOB AT THIS TIME, ZARATE CATHETER REPLACED, WITH AN OUTPUT TOTAL OF 2000 YELLOW COLOR, PATENT AND IN PLACE, LEFT UPPER ARM PICC LINE FLUSHING WELL WITH NO SIGH OF INFILTRATION, 1/2 NS 100ML/HR RUNNING, TRACH CARE DONE S#6 REPLACED, TELE MONITOR SR 65, BOWEL MOVEMENT X2 WITH LOOSE STOOL. POTASSIUM ALSO REPLACED. ALL NEEDS MET DURING SHIFT, WILL ENDORSE TO PLANT SCIENCE PROFESSORDOCTOR OSTEOPATHIC
[2021-04-14 20:00] VITALS: BP 138/87
[2021-04-14] MEDS: ENOXAPARIN SODIUM 30 MG/0.3 ML DISP.SYRIN SQ SCH (21:16)
[2021-04-15] VITALS: BP 140/90
[2021-04-15] MEDS: IV 1/2NS 1000 ML 1,000 ML IV SCH ×3 (01:09→16:36)
[2021-04-15 04:00] VITALS: BP 127/70
[2021-04-15 06:48] LABS: ALBUMIN 2.2 g/dL (3.4-5.0); BILIRUBIN,TOTAL 0.6 mg/dL (0.2-1.0); CREATININE 1.3 mg/dL (0.6-1.3); TOTAL PROTEIN, SERUM 4.7 g/dL (6.4-8.2)
[2021-04-15 06:52] LABS: BASOPHILS % (AUTO) 0.1 % (0.0-2.0); EOSINOPHILS % (AUTO) 4.8 % (0.0-6.0); HEMATOCRIT 26 % (39-51); HEMOGLOBIN 8.5 g/dL (13.5-17.5); LYMPHOCYTES # (AUTO) 1.1 K/uL (0.8-4.8); LYMPHOCYTES % (AUTO) 8.9 % (20.0-44.0); MEAN CORPUSCULAR HGB CONC 33 g/dl (31.0-36.0); MEAN CORPUSCULAR VOLUME 96 fL (80-96); MONOCYTES # (AUTO) 0.6 K/uL (0.1-1.30); MONOCYTES % (AUTO) 5.3 % (2.0-12.0); NEUTROPHILS # (AUTO) 9.8 K/uL (1.8-8.9); NEUTROPHILS % (AUTO) 80.9 % (43.0-81.0); PLATELET COUNT (AUTO) 152 K/uL (150-450); RED BLOOD CELL COUNT(AUTO) 2.68 MIL/uL (4.5-6.0); WHITE BLOOD COUNT (AUTO) 12.1 K/uL (4.3-11.0)
[2021-04-15 07:07] LABS: POTASSIUM 2.3 mmol/L (3.5-5.1)
[2021-04-15 07:08] LABS: CALCIUM, SERUM 5.1 mg/dL (8.5-10.1)
[2021-04-15] MEDS ORDERED: Calcium Gluconate 1GM/10ML 9.3 MEQ in IV D5W 250 ML IV ONE (07:30)
[2021-04-15] MEDS: LEVOTHYROXINE SODIUM 125 MCG TABLET GT SCH (07:50)
[2021-04-15] MEDS: LIOTHYRONINE SODIUM (25 MCG) 25 MCG TABLET GT SCH (07:50)
[2021-04-15 08:00] VITALS: BP 151/90
--- NOTE | 2021-04-15 08:00 | NUR ---
RN NOTES POTASSIUM OF 2.3. RELAYED TO DR. KAYE WITH ORDERS MADE AND CARRIED OUT.
[2021-04-15] MEDS: POTASSIUM CL. PREMIX PERIPHER. 50 ML IV SCH ×9 (08:28→16:55)
[2021-04-15] MEDS: PANTOPRAZOLE 40 MG/PACK PACK GT SCH (09:25)
[2021-04-15] MEDS: CHOLECALCIFEROL (VITAMIN D 3) 400 UNIT TABLET GT SCH (09:25)
[2021-04-15] MEDS: GABAPENTIN 100 MG CAPSULE GT SCH ×3 (09:25→16:36)
[2021-04-15] MEDS: CHLORHEXIDINE GLUCONATE 15 ML UDC MM SCH ×2 (09:25→21:03)
[2021-04-15] MEDS: FLUDROCORTISONE 0.1 MG TABLET GT SCH (09:25)
[2021-04-15] MEDS: MIDODRINE HCL (5MG) 5 MG TABLET GT SCH ×3 (09:26→16:37)
[2021-04-15] MEDS: THIAMINE HCL 100 MG TABLET GT SCH (09:32)
[2021-04-15] MEDS: SODIUM BICARBONATE 650 MG TABLET PEG SCH ×2 (09:32→16:37)
[2021-04-15] MEDS: LEVETIRACETAM (500MG) 750 MG in IV NS 0.9% 100 ML IV SCH (09:35)
[2021-04-15] MEDS: THERAHONEY GEL 1.5 OZ TUBE TP SCH (10:18)
[2021-04-15 12:10] VITALS: BP 128/80
[2021-04-15 16:11] VITALS: BP 134/81
--- NOTE | 2021-04-15 18:34 | NUR ---
CHIEF MINISTER CLOSING NOTES: PATIENT ON BED, OBTUNDED, ON VENT TOLERATING SETTINGS ORDERED, SHOWS NO SIGNS OF ACUTE DISTRESS OR SOB AT THIS TIME, ZARATE CATHETER IN PLACE DRAINING YELLOW COLORED URINE,NOTED WITH LEFT UPPER ARM PICC LINE FLUSHING WELL WITH NO SIGNS OF INFILTRATION, ONGOING 1/2 NS 125ML/HR INFUSING WELL. G-TUBE IN PLACE, TOLERATING FEEDING OF JEVITY 1.2 AT 60 CC/HR, NO RESIDUAL NOTED. ON TELE MONITOR SHOWING SR HR AT 70'S. REPLACED POTASSIUM ORDERED. WOUND ACRE DONE ORDERED, TURN AND REPOSITION PATIENT PER PROTOCOL. SAFETY PRECAUTIONS IN PLACE: BED ON LOWEST LOCKED POSITION, SIDE RAILS UP X 2, CALL LIGHT WITHIN EASY REACH. ALL NEEDS ATTENDED AND MET, DUE MEDS GIVEN ORDERED. WILL ENDORSE TO ONCOMING SHIFT FOR PREET.
--- NOTE | 2021-04-15 19:35 | NUR ---
RN NOTE RECEIVED PT IN BED, AWAKE, OBTUNDED. WITH TRACH ON VENT, NO SIGNS OF DISTRESS NOTED. O2 SAT AT 100%. PT GTUBE PATENT AND IN PLACE, ON GT FEEDING OF JEVITY AT 60ML/HR. NO RESIDUALS NOTED. KEPT HOB ELEVATED. PT ON IVF 1/2 NS AT 125ML/HR, MIGUEL PICC LINE PATENT AND INTACT. ZARATE DRAINING CLEAR YELLOW URINE BY GRAVITY. WILL CONTINUE TO MONITOR.
[2021-04-15 20:00] VITALS: BP 134/83
[2021-04-15] MEDS: LEVETIRACETAM SOL (5 ML) 100 MG/ML UDC GT SCH (21:03)
[2021-04-15] MEDS: ENOXAPARIN SODIUM 30 MG/0.3 ML DISP.SYRIN SQ SCH (21:04)
[2021-04-16] VITALS: BP 124/80
[2021-04-16] MEDS: IV 1/2NS 1000 ML 1,000 ML IV SCH (00:52)
[2021-04-16] MEDS: JEVITY 1.2 CAL 1,000 ML BOTTLE GT PRN (00:52)
[2021-04-16 04:00] VITALS: BP 142/78
[2021-04-16 06:27] LABS: BASOPHILS % (AUTO) 0.2 % (0.0-2.0); EOSINOPHILS % (AUTO) 6.6 % (0.0-6.0); HEMATOCRIT 26 % (39-51); HEMOGLOBIN 8.7 g/dL (13.5-17.5); LYMPHOCYTES # (AUTO) 1.1 K/uL (0.8-4.8); LYMPHOCYTES % (AUTO) 8.8 % (20.0-44.0); MEAN CORPUSCULAR HGB CONC 33 g/dl (31.0-36.0); MEAN CORPUSCULAR VOLUME 94 fL (80-96); MONOCYTES # (AUTO) 0.7 K/uL (0.1-1.30); NEUTROPHILS # (AUTO) 9.4 K/uL (1.8-8.9); NEUTROPHILS % (AUTO) 78.4 % (43.0-81.0); PLATELET COUNT (AUTO) 147 K/uL (150-450); RED BLOOD CELL COUNT(AUTO) 2.79 MIL/uL (4.5-6.0)
[2021-04-16 07:10] LABS: ALBUMIN 2.2 g/dL (3.4-5.0); BILIRUBIN,TOTAL 0.7 mg/dL (0.2-1.0); CREATININE 1.3 mg/dL (0.6-1.3); TOTAL PROTEIN, SERUM 4.8 g/dL (6.4-8.2)
--- NOTE | 2021-04-16 07:15 | NUR ---
RN NOTE PT CONTINUE VENT SETTINGS, TOLERATING WELL. NO SIGNS OF RESP DISTRESS. PT TOLERATE GT FEEDING AT 60ML/HR. NO RESIDUALS NOTED, FLUSHED WITH WATER ORDERED. KEPT HOB ELEVATED. WOUND TX WERE DONE ORDERED. TURNED AND REPOSITIONED. ZARATE DRAINING WELL. IVF INFUSING WELL NO SIGNS OF INFILTRATION NOTED. ENDORSED TO NEXT SHIFT NURSE FOR PREET.
[2021-04-16 07:17] LABS: CALCIUM, SERUM 5.2 mg/dL (8.5-10.1); POTASSIUM 2.8 mmol/L (3.5-5.1)
--- NOTE | 2021-04-16 07:25 | NUR ---
DIRECTOR OF SUSTAINABILITY PROGRAMS OPENING NOTES: RECEIVED PATIENT ON BED, OBTUNDED, ON VENT TOLERATING SETTINGS ORDERED, SHOWS NO SIGNS OF ACUTE DISTRESS OR SOB AT THIS TIME, ZARATE CATHETER IN PLACE DRAINING YELLOW COLORED URINE,NOTED WITH LEFT UPPER ARM PICC LINE FLUSHING WELL WITH NO SIGH OF INFILTRATION, ONGOING 1/2 NS 100ML/HR INFUSING WELL. G-TUBE IN PLACE, TOLERATING FEEDING OF JEVITY AT 60 CC/HR, NO RESIDUAL NOTED. ON TELE MONITOR SHOWING SR HR AT 90'S. SAFETY PRECAUTIONS IN PLACE: BED ON LOWEST LOCKED POSITION, SIDE RAILS UP X 2, CALL LIGHT WITHIN EASY REACH. WILL CONTINUE TO MONITOR ACCORDINGLY.
[2021-04-16 08:00] VITALS: BP 151/85
[2021-04-16] MEDS ORDERED: Calcium Gluconate 1GM/10ML 9.3 MEQ in IV D5W 250 ML IV ONE ×2 (08:00→09:00)
[2021-04-16] MEDS ORDERED: POTASSIUM CHLORIDE 10 MEQ/50 ML PREMIXED IVPB FOR PERIPHERAL LINE IV SCH (08:00)
[2021-04-16] MEDS: MIDODRINE HCL (5MG) 5 MG TABLET GT SCH ×3 (09:00→17:03)
[2021-04-16] MEDS: THERAHONEY GEL 1.5 OZ TUBE TP SCH (09:00)
[2021-04-16] MEDS: CHLORHEXIDINE GLUCONATE 15 ML UDC MM SCH ×2 (09:12→21:41)
[2021-04-16] MEDS: POTASSIUM CL. PREMIX PERIPHER. 50 ML IV SCH ×8 (09:12→18:01)
[2021-04-16] MEDS: FLUDROCORTISONE 0.1 MG TABLET GT SCH (09:13)
[2021-04-16] MEDS: PANTOPRAZOLE 40 MG/PACK PACK GT SCH (09:13)
[2021-04-16] MEDS: LEVETIRACETAM SOL (5 ML) 100 MG/ML UDC GT SCH ×2 (09:13→21:39)
[2021-04-16] MEDS: CHOLECALCIFEROL (VITAMIN D 3) 400 UNIT TABLET GT SCH (09:14)
[2021-04-16] MEDS: GABAPENTIN 100 MG CAPSULE GT SCH ×3 (09:15→16:57)
[2021-04-16] MEDS: THIAMINE HCL 100 MG TABLET GT SCH (09:15)
[2021-04-16] MEDS: LEVOTHYROXINE SODIUM 125 MCG TABLET GT SCH (09:27)
[2021-04-16] MEDS: SODIUM BICARBONATE 650 MG TABLET PEG SCH ×2 (09:27→16:56)
[2021-04-16] MEDS: LIOTHYRONINE SODIUM (25 MCG) 25 MCG TABLET GT SCH (09:27)
[2021-04-16] MEDS: THERAHONEY GEL 1.5 OZ TUBE TP PRN (09:30)
--- NOTE | 2021-04-16 10:08 | NUR ---
RN NOTE ASMI APPLIED BUT DOCUMENTED ON THE PRN
[2021-04-16 12:00] VITALS: BP 151/85
[2021-04-16 16:00] VITALS: BP 123/85
[2021-04-16 17:06] LABS: ALBUMIN 2.3 g/dL (3.4-5.0); BILIRUBIN,TOTAL 0.6 mg/dL (0.2-1.0); CREATININE 1.3 mg/dL (0.6-1.3); POTASSIUM 3.5 mmol/L (3.5-5.1); TOTAL PROTEIN, SERUM 5.1 g/dL (6.4-8.2)
[2021-04-16 17:12] LABS: CALCIUM, SERUM 5.4 mg/dL (8.5-10.1)
[2021-04-16] MEDS: ERGOCALCIFEROL (VITAMIN D 2) 50,000 UNIT CAPSULE GT SCH (17:16)
--- NOTE | 2021-04-16 18:39 | NUR ---
CRANKSHAFT GRINDER CLOSING NOTES: PATIENT STILL ON BED, OBTUNDED, ON VENT TOLERATING SETTINGS ORDERED, SHOWS NO SIGNS OF ACUTE DISTRESS OR SOB AT THIS TIME, ZARATE CATHETER IN PLACE DRAINING YELLOW COLORED URINE,NOTED WITH LEFT UPPER ARM PICC LINE FLUSHING WELL WITH NO SIGH OF INFILTRATION, ONGOING 1/2 NS 100ML/HR INFUSING WELL. G-TUBE IN PLACE, TOLERATING FEEDING OF JEVITY AT 60 CC/HR, NO RESIDUAL NOTED. ON TELE MONITOR SHOWING SR HR AT 90'S. SAFETY PRECAUTIONS IN PLACE: BED ON LOWEST LOCKED POSITION, SIDE RAILS UP X 2, CALL LIGHT WITHIN EASY REACH. WILL ENDORSE CONTINUITY OF CARE TO NEXT SHIFT.
[2021-04-16 20:00] VITALS: BP 146/88
--- NOTE | 2021-04-16 20:00 | NUR ---
RN NOTE RECEIVED PT IN BED, AWAKE, OBTUNDED. WITH TRACH ON VENT, NO SIGNS OF DISTRESS NOTED. O2 SAT AT 100%. PT GTUBE PATENT AND IN PLACE, ON GT FEEDING OF JEVITY AT 60ML/HR. NO RESIDUALS NOTED. KEPT HOB ELEVATED. MIGUEL PICC LINE PATENT AND INTACT. WOUND DRESSING ARE CLEAN DRY AND INTACT. WILL CONTINUE TO MONITOR.
--- NOTE | 2021-04-16 20:01 | NUR ---
RECEIVED PT TRACH SHILEY 6 ON VENT WITH THE SETTINGS OF AC 12, VT 400,FIO2 30%. PT IS AWAKE AND OBTUNDED. SUCTIONED SMALL AMOUNT OF WHITE THICK SECRETIONS. NO RESP DISTRESS NOTED AT THIS TIME.. PT TOLERATING VENT SETTINGS. VENT ALARMS SET AND AUDIBLE. AMBU BAG AT BEDSIDE. WILL CONTINUE TO MONITOR T/O SHIFT.
[2021-04-16] MEDS ORDERED: POTASSIUM CHLORIDE 20 MEQ POWDER PACKET GT ONE (20:30)
[2021-04-16] MEDS: ENOXAPARIN SODIUM 30 MG/0.3 ML DISP.SYRIN SQ SCH (21:41)
[2021-04-17] VITALS (7 sets, daily range): BP systolic 112–158; BP diastolic 67–87
[2021-04-17] MEDS: JEVITY 1.2 CAL 1,000 ML BOTTLE GT PRN (00:08)
--- NOTE | 2021-04-17 03:47 | NUR ---
RN NOTE NOTED PT VOMITING WITH MINIMAL AMOUNT, KEPT HOB ELEVATED. ZOFRAN GIVEN. ZARATE CATHETER LEAKING, CHANGED/INSERTED NEW ONE WITH GOOD AMOUNT OF URINE OUTPUT. WILL CONTINUE TO MONITOR.
[2021-04-17 06:35] LABS: ALBUMIN 2.1 g/dL (3.4-5.0); BILIRUBIN,TOTAL 0.6 mg/dL (0.2-1.0); CREATININE 1.2 mg/dL (0.6-1.3); TOTAL PROTEIN, SERUM 4.7 g/dL (6.4-8.2)
[2021-04-17 06:48] LABS: BASOPHILS # (AUTO) 0.1 K/uL (0.0-0.2); BASOPHILS % (AUTO) 0.6 % (0.0-2.0); EOSINOPHILS % (AUTO) 5.4 % (0.0-6.0); HEMATOCRIT 24 % (39-51); HEMOGLOBIN 8.2 g/dL (13.5-17.5); LYMPHOCYTES # (AUTO) 0.7 K/uL (0.8-4.8); LYMPHOCYTES % (AUTO) 7.9 % (20.0-44.0); MEAN CORPUSCULAR HGB CONC 34 g/dl (31.0-36.0); MEAN CORPUSCULAR VOLUME 94 fL (80-96); MONOCYTES # (AUTO) 0.6 K/uL (0.1-1.30); MONOCYTES % (AUTO) 6.6 % (2.0-12.0); NEUTROPHILS # (AUTO) 7.2 K/uL (1.8-8.9); NEUTROPHILS % (AUTO) 79.5 % (43.0-81.0); PLATELET COUNT (AUTO) 117 K/uL (150-450); RED BLOOD CELL COUNT(AUTO) 2.52 MIL/uL (4.5-6.0); WHITE BLOOD COUNT (AUTO) 9.1 K/uL (4.3-11.0)
[2021-04-17 06:54] LABS: CALCIUM, SERUM 5.3 mg/dL (8.5-10.1)
--- NOTE | 2021-04-17 07:00 | NUR ---
RN NOTES: RECEIVED PATIENT ON BED, OBTUNDED, ON VENT TOLERATING SETTINGS ORDERED, NO DISTRESS NOTED, ZARATE CATHETER IN PLACE DRAINING YELLOW COLORED URINE, LEFT UPPER ARM PICC LINE SITE CLEAN, DRY AND INTACT, G-TUBE IN PLACE, TOLERATING FEEDING OF JEVITY AT 60 CC/HR, NO RESIDUAL NOTED. ON TELE MONITOR SHOWING ST HR AT 100'S, SAFETY PRECAUTIONS IN PLACE: BED ON LOWEST LOCKED POSITION, SIDE RAILS UP X 3, CALL LIGHT WITHIN EASY REACH. WILL CONTINUE TO MONITOR.
--- NOTE | 2021-04-17 07:15 | NUR ---
RN NOTE PT CONTINUE VENT SETTINGS, TOLERATING WELL. NO SIGNS OF RESP DISTRESS. PT TOLERATE GT FEEDING AT 60ML/HR. NO RESIDUALS NOTED, FLUSHED WITH WATER ORDERED. KEPT HOB ELEVATED. WOUND TX WERE DONE ORDERED. TURNED AND REPOSITIONED. DRAINED ABOUT 1500ML FROM ZARATE AFTER REINSERTION, NO URINE OUTPUT WERE NOTED NOW, ENDORSED TO NEXT SHIFT NURSE FOR PREET.
[2021-04-17] MEDS: POTASSIUM CL. PREMIX PERIPHER. 50 ML IV SCH ×8 (07:50→16:04)
[2021-04-17] MEDS: LIOTHYRONINE SODIUM (25 MCG) 25 MCG TABLET GT SCH (07:50)
[2021-04-17] MEDS: LEVOTHYROXINE SODIUM 125 MCG TABLET GT SCH (07:51)
[2021-04-17] MEDS: Calcium Gluconate 1GM/10ML 9.3 MEQ in IV D5W 250 ML IV SCH ×4 (08:27→12:33)
[2021-04-17] MEDS: PANTOPRAZOLE 40 MG/PACK PACK GT SCH (08:28)
[2021-04-17] MEDS: LEVETIRACETAM SOL (5 ML) 100 MG/ML UDC GT SCH ×2 (08:28→21:12)
[2021-04-17] MEDS: CHLORHEXIDINE GLUCONATE 15 ML UDC MM SCH ×2 (08:28→21:12)
[2021-04-17] MEDS: GABAPENTIN 100 MG CAPSULE GT SCH ×3 (08:29→16:21)
[2021-04-17] MEDS: CHOLECALCIFEROL (VITAMIN D 3) 400 UNIT TABLET GT SCH (08:30)
[2021-04-17] MEDS: SODIUM BICARBONATE 650 MG TABLET PEG SCH ×2 (08:30→16:19)
[2021-04-17] MEDS: THIAMINE HCL 100 MG TABLET GT SCH (08:30)
[2021-04-17] MEDS: FLUDROCORTISONE 0.1 MG TABLET GT SCH (08:30)
[2021-04-17] MEDS: MIDODRINE HCL (5MG) 5 MG TABLET GT SCH ×3 (08:31→16:21)
[2021-04-17] MEDS: THERAHONEY GEL 1.5 OZ TUBE TP SCH (08:32)
--- NOTE | 2021-04-17 11:40 | NUR ---
WYATT NOTES COLLECTED STOOL FOR C-DIFF ORDERED. WILL CONTINUE TO MONITOR. Addendum: 04/18/21 at 0309 by JESE MARCIAL RN ADDENDUM WRONG TIME
--- NOTE | 2021-04-17 12:00 | NUR ---
RN NOTES ONE LARGE LOOSE STOOL NOTED, MD ALLENFED , CONTINUE TO MONITOR.
[2021-04-17 16:43] LABS: ALBUMIN 2.2 g/dL (3.4-5.0); BILIRUBIN,TOTAL 0.7 mg/dL (0.2-1.0); CALCIUM, SERUM 6.7 mg/dL (8.5-10.1); CREATININE 1.2 mg/dL (0.6-1.3); POTASSIUM 4.3 mmol/L (3.5-5.1)
[2021-04-17 16:45] LABS: MAGNESIUM 1.5 mg/dL (1.8-2.4); PHOSPHORUS 2.7 mg/dL (2.5-4.9)
[2021-04-17 17:01] LABS: CHLORIDE,URINE RANDOM 112 mmol/L (55-125); POTASSIUM RNDM,URINE 8 mmol/L (25-125); URINE SODIUM, RANDOM 112 mmol/l (40-220)
[2021-04-17] MEDS: Magnesium 1GM/D5W 100ML PREMIX 100 ML IV SCH ×2 (17:52→18:54)
--- NOTE | 2021-04-17 18:10 | NUR ---
RN NOTES NO SIGNIFICANT CHANGES NOTED ON THIS SHIFT, TRACH CARE DONE PRN, TF AT 60CC/HR RUNNING, NO RESIDUAL NOTED, WILL ENDORSE TO SALES MANAGER [place] NURSE FOR CONTINUITY OF CARE.
--- NOTE | 2021-04-17 19:30 | NUR ---
RN NOTES RECEIVED REPORT FROM MORNING NURSE. PATIENT ON TRACH SHILEY #6 INTACT CONNECTED TO MV WITH PRESCRIBED SETTINGS. WITH GT PATENT NO GASTRIC RESIDUAL NOTED. ON CONTINUOS GTF JEVITY 1.2 @60CC/HR TOLERATING WELL. WITH PICC LINE AT MIGUEL PATENT FLUSHES WELL. FAMILY AT BEDSIDE. ALL SAFETY MEASURES IN PLACE, HOB ELEVATED, CALL LIGHT WITHIN REACH. NO SOB NO DISTRESS AT THIS TIME. WILL CLOSELY MONITOR THE PATIENT
[2021-04-17] MEDS: ENOXAPARIN SODIUM 30 MG/0.3 ML DISP.SYRIN SQ SCH (21:13)
--- NOTE | 2021-04-17 23:45 | NUR ---
RN NOTES COLLECTED STOOL FOR C-DIFF ORDERED. WILL CONTINUE TO MONITOR THE PATIENT
[2021-04-18] VITALS: BP 124/70
[2021-04-18 04:00] VITALS: BP 100/59
--- NOTE | 2021-04-18 06:43 | NUR ---
RN NOTES PATIENT IN BED NO SIGNIFICANT CHANGES IN HEALTH CONDITION THIS SHIFT. NO SOB, NO DISTRESS DURING THIS SHIFT. ALL DUE MEDS GIVEN ORDERED. ALL SAFETY MEASURES IN P[LACE AT ALL TIMES, HOB ELEVATED, CALL LIGHT WITHIN REACH.ALL NEEDS ATTENDED PROMPTLY. ENDORSED
[2021-04-18 06:51] LABS: BASOPHILS # (AUTO) 0.1 K/uL (0.0-0.2); BASOPHILS % (AUTO) 0.8 % (0.0-2.0); EOSINOPHILS % (AUTO) 9.8 % (0.0-6.0); HEMATOCRIT 25 % (39-51); HEMOGLOBIN 8.6 g/dL (13.5-17.5); LYMPHOCYTES # (AUTO) 1.3 K/uL (0.8-4.8); LYMPHOCYTES % (AUTO) 14.5 % (20.0-44.0); MEAN CORPUSCULAR HGB CONC 35 g/dl (31.0-36.0); MEAN CORPUSCULAR VOLUME 94 fL (80-96); MONOCYTES # (AUTO) 0.6 K/uL (0.1-1.30); MONOCYTES % (AUTO) 6.6 % (2.0-12.0); NEUTROPHILS % (AUTO) 68.3 % (43.0-81.0); PLATELET COUNT (AUTO) 141 K/uL (150-450); RED BLOOD CELL COUNT(AUTO) 2.64 MIL/uL (4.5-6.0); WHITE BLOOD COUNT (AUTO) 8.7 K/uL (4.3-11.0)
[2021-04-18 07:05] LABS: CALCIUM, SERUM 6.5 mg/dL (8.5-10.1); CREATININE 1.2 mg/dL (0.6-1.3); MAGNESIUM 1.7 mg/dL (1.8-2.4); PHOSPHORUS 2.7 mg/dL (2.5-4.9)
--- NOTE | 2021-04-18 07:32 | NUR ---
RN OPENING NOTE PATIENT RECEIVED IN BED, ASLEEP. PATIENT ON MECHANICAL VENTILATOR WITH A TRACHEOSTOMY TUBE IN PLACE, NO SIGNS OF LABORED BREATHING AT THIS TIME. ZARATE CATHETER IN PLACE. G TUBE IN PLACE RUNNING JEVITY 1.2 AT 60CC/HR. LEFT UPPER ARM PICC IN PLACE, PATENT WITH NO SIGNS OF INFILTRATION. NO DISTRESS NOTED AT THIS TIME. BED LOCKED AND IN LOWEST POSITION, 3 SIDE RAILS UP, CALL LIGHT WITHIN REACH, ALL SAFETY MEASURES IMPLEMENTED. WILL CONTINUE TO MONITOR.
[2021-04-18 08:00] VITALS: BP 120/72
[2021-04-18] MEDS: CHLORHEXIDINE GLUCONATE 15 ML UDC MM SCH (08:04)
[2021-04-18] MEDS: LEVETIRACETAM SOL (5 ML) 100 MG/ML UDC GT SCH (08:04)
[2021-04-18] MEDS: MIDODRINE HCL (5MG) 5 MG TABLET GT SCH ×2 (08:04→12:08)
[2021-04-18] MEDS: PANTOPRAZOLE 40 MG/PACK PACK GT SCH (08:04)
[2021-04-18] MEDS: THIAMINE HCL 100 MG TABLET GT SCH (08:05)
[2021-04-18] MEDS: LEVOTHYROXINE SODIUM 125 MCG TABLET GT SCH (08:05)
[2021-04-18] MEDS: GABAPENTIN 100 MG CAPSULE GT SCH ×2 (08:05→12:07)
[2021-04-18] MEDS: FLUDROCORTISONE 0.1 MG TABLET GT SCH (08:05)
[2021-04-18] MEDS: SODIUM BICARBONATE 650 MG TABLET PEG SCH (08:05)
[2021-04-18] MEDS: THERAHONEY GEL 1.5 OZ TUBE TP SCH (08:05)
[2021-04-18] MEDS: CHOLECALCIFEROL (VITAMIN D 3) 400 UNIT TABLET GT SCH (08:05)
[2021-04-18] MEDS: LIOTHYRONINE SODIUM (25 MCG) 25 MCG TABLET GT SCH (08:05)
[2021-04-18] MEDS ORDERED: CALC-1180 PO (09:28)
[2021-04-18] MEDS: Magnesium 1GM/D5W 100ML PREMIX 100 ML IV SCH ×2 (09:43→10:38)
[2021-04-18] MEDS ORDERED: Magnesium 1GM/D5W 100ML PREMIX 100 ML IV SCH (10:00)
[2021-04-18] MEDS ORDERED: Calcium Gluconate 1GM/10ML 9.3 MEQ in IV D5W 250 ML IV ONE (10:00)
[2021-04-18 12:00] VITALS: BP 118/79
[2021-04-18 12:08] VITALS: BP 115/79
--- NOTE | 2021-04-18 15:36 | NUR ---
RN NOTE PATIENT DISCHARGED PER ORDER. PATIENT MEDICALLY STABLE, ON MECHANICAL VENTILATOR AT TIME OF DISCHARGE. ZARATE CATHETER, GTUBE AND PICC LINE LEFT IN PLACE PER [facility] DEMAND. REPORT GIVEN TO JEVON. PATIENT LEFT THE FACILITY WITH AMBULANCE CREW.
== END 2021-04-18 15:36 | DRG 720 ==
LOC: ER 15:58 → TELE-TD 20:02 → ICU 03-31 00:51 → TELE1 04-04 19:17
PROVIDERS: ADMIT Nurse Practitioner Acute Care; ATTEND Internal Medicine
PROC: 5A1955Z Respiratory Ventilation, Greater than 96 Consecutive Hours (ICD-10-PCS; principal; 2021-03-30)
PROC: 02HV33Z Insertion of Infusion Device into Superior Vena Cava, Percutaneous Approach (ICD-10-PCS; 2021-03-31)
PROC: B548ZZA Ultrasonography of Superior Vena Cava, Guidance (ICD-10-PCS; 2021-03-31)
PROC: 30233N1 Transfusion of Nonautologous Red Blood Cells into Peripheral Vein, Percutaneous Approach (ICD-10-PCS; 2021-04-02)
PROC: 0JB70ZZ Excision of Back Subcutaneous Tissue and Fascia, Open Approach (ICD-10-PCS; 2021-04-06)
DX: A41.9 Sepsis, unspecified organism (principal); J96.20 Acute and chronic respiratory failure, unspecified whether with hypoxia or hypercapnia; N17.0 Acute kidney failure with tubular necrosis; R65.21 Severe sepsis with septic shock; G93.41 Metabolic encephalopathy; E43 Unspecified severe protein-calorie malnutrition; L89.153 Pressure ulcer of sacral region, stage 3; D68.59 Other primary thrombophilia; J18.9 Pneumonia, unspecified organism; G93.1 Anoxic brain damage, not elsewhere classified; R53.2 Functional quadriplegia; D68.9 Coagulation defect, unspecified; D63.8 Anemia in other chronic diseases classified elsewhere; E27.40 Unspecified adrenocortical insufficiency; E87.2 Acidosis; E87.0 Hyperosmolality and hypernatremia; E86.1 Hypovolemia; G40.909 Epilepsy, unspecified, not intractable, without status epilepticus; E03.9 Hypothyroidism, unspecified; D75.839 Thrombocytosis, unspecified; N18.9 Chronic kidney disease, unspecified; B35.1 Tinea unguium; N39.0 Urinary tract infection, site not specified; B96.20 Unspecified Escherichia coli [E. coli] as the cause of diseases classified elsewhere; Z20.822 Contact with and (suspected) exposure to COVID-19; Z99.11 Dependence on respirator [ventilator] status; Z93.0 Tracheostomy status; R13.10 Dysphagia, unspecified; Z93.1 Gastrostomy status; Z86.19 Personal history of other infectious and parasitic diseases; Z79.51 Long term (current) use of inhaled steroids; Z79.01 Long term (current) use of anticoagulants; Z79.899 Other long term (current) drug therapy; E83.51 Hypocalcemia; Y95 Nosocomial condition; L60.2 Onychogryphosis; E87.6 Hypokalemia; L97.529 Non-pressure chronic ulcer of other part of left foot with unspecified severity; L97.519 Non-pressure chronic ulcer of other part of right foot with unspecified severity; Z16.24 Resistance to multiple antibiotics; M62.40 Contracture of muscle, unspecified site; Z74.09 Other reduced mobility; K56.7 Ileus, unspecified; B96.89 Other specified bacterial agents as the cause of diseases classified elsewhere
CPT/HCPCS: 31720; 36415; 71045-TC; 74018; 74250-TC; 80048-TC; 80053-TC; 80061-TC; 80076-TC; 80202-TC; 81001; 82306; 82308; 82330; 82436-TC; 82533; 83540-TC; 83605-TC; 83690-TC; 83735-TC; 83970; 84100-TC; 84133-TC; 84300-TC; 84439-TC; 84443-TC; 84481; 84484-TC; 85025-TC; 85730-TC; 86850-TC; 87040-TC; 87081-TC; 87086-TC; 87186-TC; 94002-TC; 94003-TC; 94760-TC; 94762-TC; 94799-TC; 99082-TC; A4217; A4623; A6253; A6403; A7526; G0378; J0610; J0713; J1650; J1720; J1953; J2185; J2405; J3370; J3475; J3480; J3490; J7030; J7040; J7050; J7060; P9016; Q9963; U0003